=== PATIENT | female | born 1950 | race Asian ===

== ENCOUNTER → 2018-03-18 12:01 | Outpatient (CLI) | payer MEDICARE, SELFPAY ==
[2018-03-18 14:42] LABS: Anion Gap 10 (5-15); BUN 11 mg/dL (7-18); BUN/Creat Ratio 11.2 RATIO (10-20); Calcium,Total 9.3 mg/dL (8.5-10.1); Chloride 107 mmol/L (98-107); Cholesterol 171 mg/dL (200); Creatinine, Serum 0.98 mg/dL (0.55-1.02); EST Glomerular Filtration Rate 60 mL/min (>60); Est Glom Filt Rate - Afr Amer 73 mL/min (>60); Glucose 98 mg/dL (74-106); High Density Lipoprotein 30 mg/dL; Sodium Level 144 mmol/L (136-145); Triglycerides 225 mg/dL; Very Low Density Lipoprotein 45 mg/dL (5-40)
[2018-03-19 12:35] LABS: Cancer Antigen 125 52.9 U/mL (0.0-38.1)
== END ==
PROVIDERS: Family Provider Family Medicine; PCP Family Medicine; Visit Provider Family Medicine
DX: R97.1 Elevated cancer antigen 125 [CA 125] (principal); I10 Essential (primary) hypertension
CPT/HCPCS: 36415; 80048; 80061; 86304

== ENCOUNTER → 2018-04-19 12:10 | Outpatient (CLI) | payer MEDICARE, SELFPAY ==
--- NOTE | 2018-04-19 12:13 | CDU_ITS ---
Reason For Study: hyperlipidemia Rt. Velocities/BP Lt. Velocities/BP Prox CCA 67..4/17.0 cm/sec. Prox CCA 89.7/18.2 cm/sec. Mid CCA 101.0/22.3 cm/sec. Mid CCA 111.0/25.8 cm/sec. Dist CCA 97.3/19.3 cm/sec. Dist CCA 72.7/25.25 cm/sec. Prox ICA 104.0/24.6 cm/sec. Prox ICA 90.9/25.2 cm/sec. Mid ICA 116.0/30.5 cm/sec. Mid ICA 89.1/29.3 cm/sec. Dist ICA 74.5/25.2 cm/sec. Dist ICA 107.0/33.4 cm/sec. Rt. ICA/CCA = 116.0/101.0=1.15. Lt. ICA/CCA = 107.0/111.0=0.96. Prox ECA 90.9/13.5 cm/sec. Prox ECA 95.6/13.5 cm/sec. Rt. Vert. 66.0/21.2 cm/sec. Lt. Vert. 51.5/11.7 cm/sec. Right Extracranial There is homogeneous, smooth atherosclerotic plaque noted in the right common carotid artery. There is heterogeneous, irregular atherosclerotic plaque noted in the right internal carotid artery. There is homogeneous, smooth atherosclerotic plaque noted in the right external carotid artery. Antegrade flow is noted in the right vertebral artery. Left Extracranial There is heterogeneous, irregular atherosclerotic plaque noted in the left common carotid artery. There is homogeneous, smooth atherosclerotic plaque noted in the left internal carotid artery. The atherosclerotic plaque causes acoustic shadowing. There is intimal thickening but no significant atherosclerotic plaque noted in the left external carotid artery. Antegrade flow is noted in the left vertebral artery. There is heterogeneous, irregular atherosclerotic plaque noted in the left bulb. Interpretation Summary Irregular plague at the proximal right internal carotid with <50% stenosis Normal flow right external carotid Calcific plague with shadowing at the proximal left internal carotid with <50% stenosis. Normal flow left external carotid Patent and antegrade vertebrals bilaterally Ordering Physician: Conner Nolan Referring Physician: Conner Nolan Performed By: Manju Nj, DUKE, RVT
== END ==
PROVIDERS: Family Provider Family Medicine; PCP Family Medicine; Visit Provider Family Medicine
DX: E78.5 Hyperlipidemia, unspecified (principal)
CPT/HCPCS: 93880

== ENCOUNTER → 2018-06-17 11:21 | Outpatient (CLI) | payer MEDICARE, SELFPAY ==
[2018-06-17 14:09] LABS: Anion Gap 7 (5-15); BUN 12 mg/dL (7-18); BUN/Creat Ratio 11.8 RATIO (10-20); Calcium,Total 9.2 mg/dL (8.5-10.1); Chloride 108 mmol/L (98-107); Creatinine, Serum 1.02 mg/dL (0.55-1.02); EST Glomerular Filtration Rate 58 mL/min (>60); Est Glom Filt Rate - Afr Amer 70 mL/min (>60); Glucose 115 mg/dL (74-106); Sodium Level 143 mmol/L (136-145)
[2018-06-21 12:45] LABS: Cancer Antigen 125 60.5 U/mL (0.0-38.1)
== END ==
PROVIDERS: Family Provider Family Medicine; PCP Family Medicine; Visit Provider Family Medicine
DX: R97.1 Elevated cancer antigen 125 [CA 125] (principal); I10 Essential (primary) hypertension
CPT/HCPCS: 36415; 80048; 86304

== ENCOUNTER 2018-06-29 07:32 | Day surgery (SDC) | payer MEDICARE, SELFPAY ==
--- NOTE | 2018-06-29 | IMM_PTH ---
PATIENT: ADAM DUENAS LOC: EN U#:[id number] AGE/SX: 67/F ROOM: RE06/29/[address]: Dr. Mahendra Nogueira MD : 1950 BED: DIS: 06/29/2018 SPEC #: [id number] RECD: 06/30/18 10:27 STATUS: SON RESoraya #: [id number] LEN: 06/29/18 00:[address]: Mahendra Nogueira DEPT: IMMUNOHISTOCHEMISTRY RECD BY: Viki Abraham ENTERED: 06/30/18 10:27 SP TYPE: IMMUNO OTHR DR: Dr. Conner Nolan MD Tissues: Stomach, NOS Procedures: H Pylori (initial) PHYSICIAN & INSTITUTION [place] [address] SPECIMEN INFORMATION: Tissue Source: Antrum biopsy Clinical Info: Screening, GERD, esophagitis Specimen Number: [id number] CPT code: 04411 METHODOLOGY: Deparaffinized sections of prefer/formalin-fixed tissue or PAP/DQ stained slides are incubated with monoclonal/polyclonal antibodies/oligonucleotide probes. Localization is made via biotin free immunoperoxidase method. Appropriate controls are performed and reacted as expected. Results on target cell population are indicated in the following table: RESULTS: ANTIBODY / CLONE RESULT H Pylori (polyclonal) positive These tests were developed and their performance characteristics determined by [facility]. They may not have been cleared or approved by the U.S. Food and Drug Administration. The FDA has determined that such clearance or approval is not necessary. INTERPRETATION: Antrum, biopsy: Positive for numerous Helicobacter pylori organisms. SJ:rojas 06/30/18
[2018-06-29 08:31] VITALS: BP 143/62; PULSE 67; RESP 18; TEMP 36.7; O2SAT 100; BMI 29.1
[2018-06-29 08:51] LABS: Bedside Glucose 96 mg/dL (70-110)
--- NOTE | 2018-06-29 09:45 | EGD_PTH ---
PATIENT: ADAM DUENAS LOC: EN U#:[id number] AGE/SX: 67/F ROOM: RE06/29/[address]: Dr. Mahendra Nogueira MD : 1950 BED: DIS: 06/29/2018 SPEC #: [id number] RECD: 06/29/18 10:07 STATUS: SON CYNDI #: [id number] LEN: 06/29/18 09:[address]: Mahendra Nogueira DEPT: SURGICAL PATHOLOGY RECD BY: Vivek Callejas ENTERED: 06/29/18 12:17 SP TYPE: EGD BIOPSY OTHR DR: Dr. Conner Nolan MD Tissues: Gastric mucous membrane Procedures: Surgery Specimen Level IV HEADER OPERATION: Colonoscopy, EGD ([facility]) PRE-OP DIAGNOSIS: Screening for colon CA, gastroesophageal reflux disease, esophagitis TISSUE SUBMITTED: Antrum biopsy for H. pylori and path MICROSCOPIC DIAGNOSIS Antrum, biopsy: Chronic active gastritis. SJ:rojas 06/30/18 COMMENT The results of immunohistochemistry for Helicobacter pylori will be reported separately ([id number]). MICROSCOPIC DESCRIPTION Slides are reviewed. GROSS DESCRIPTION Received in fixative is one container labeled with the patient's name and designated antrum biopsy for H. pylori and path. The specimen consists of two irregular fragments of light fontenot soft tissue that in aggregate measure 1 x 0.2 x 0.1 cm. The specimen is totally submitted in one cassette. / SJ:rojas 06/29/18 TC:2 CPT: 15912
[2018-06-29 09:55] VITALS: BP 118/41; BP 143/62; PULSE 68; RESP 18; TEMP 36.9; O2SAT 100
[2018-06-29 10:00] VITALS: BP 119/49; BP 143/62; PULSE 65; RESP 16; O2SAT 100
[2018-06-29 10:00] LABS: Bedside Glucose 89 mg/dL (70-110)
--- NOTE | 2018-06-29 10:04 | OP.PCM_ITS ---
Problem List (1) GERD with esophagitis Status: Acute (2) Screen for colon cancer Status: Acute Report of Operation Date of Procedure: 06/29/18 Pre-Operative Diagnosis: 1. GERD. 2. Screening for colon cancer Post-Operative Diagnosis: 1. Gastric ulcers. 2. Hemorrhoids Surgery/Procedure Performed:: 1. EGD with biopsy. 2. Colonoscopy Specimen's removed: Antrum biopsy for H. pylori Description of Procedure: The major risks and benefits associated with the procedure were explained to the patient in detail. The patient verbalized understanding and agreement with the same. The patient was then placed in the left lateral decubitus position. IV sedation was started by anesthesia. The endoscope was then advanced under direct visualization over the tongue, into the esophagus , stomach and duodenum. It was slowly withdrawn and the mucosa was carefully evaluated. Duodenal mucosal abnormalities were not visualized. Retrograde views of the stomach did not show any hiatal hernia. The distal stomach did have multiple shallow based ulcers. None of these had active bleeding. A biopsy of the antrum was performed with cold forceps. The scope was then withdrawn through the GE junction and careful examination did not demonstrate any mucosal abnormalities. No evidence of Patel's esophagus was apparent. Careful examination of the remainder of the esophagus was normal. The scope was then withdrawn from the patient. The patient was then turned for the colonoscopy portion of the procedure. A digital rectal exam was performed. This examination was within normal limits. A well-lubricated colonoscope was then inserted into the rectum and advanced under direct visualization to the level of the cecum. The bowel prep was good. The cecum was identified by both visual and anatomic landmarks. A photograph was taken of the end of the cecum. The scope was then fully withdrawn while examining the color, texture, anatomy and integrity of the mucosa from the cecum to the anal canal. Over 6 minutes were taken to examine the colonic mucosa. The findings were consistent with normal colonic mucosa. Upon reaching the rectum the scope was retroflexed to examine the distal rectal vault. The patient did have internal hemorrhoids. The scope was then straightened and was completely retrieved upon exiting the anal canal and the procedure was terminated. The patient was then transferred to the recovery room in stable condition. Recommendations for follow up: 1. I will start the patient on PPI for her peptic ulcer disease. I recommended that she return to see me in 3 months for repeat EGD to ensure that these have healed. If they have not healed I will biopsy the ulcers themselves. 2. Colonoscopy was normal and she can repeat colonoscopy in 10 years.
[2018-06-29 10:05] VITALS: BP 121/58; BP 143/62; PULSE 62; RESP 16; O2SAT 100
[2018-06-29 10:10] VITALS: BP 121/40; BP 143/62; PULSE 63; RESP 16; TEMP 36.4; O2SAT 100
[2018-06-29 10:31] VITALS: BP 143/62
== END 2018-06-29 10:54 | disposition home or self-care (01) ==
LOC: EN 07:33 → AC 07:34
PROVIDERS: Family Provider Family Medicine; PCP Family Medicine; Visit Provider Surgery
PROC: 0DJD8ZZ Inspection of Lower Intestinal Tract, Via Natural or Artificial Opening Endoscopic (ICD-10-PCS; CPT 45378; principal; 2018-06-29 09:40)
DX: Z12.11 Encounter for screening for malignant neoplasm of colon (principal); K21.0 Gastro-esophageal reflux disease with esophagitis; K64.8 Other hemorrhoids; K27.9 Peptic ulcer, site unspecified, unspecified as acute or chronic, without hemorrhage or perforation; Z79.899 Other long term (current) drug therapy; E78.5 Hyperlipidemia, unspecified; E11.9 Type 2 diabetes mellitus without complications; Z85.43 Personal history of malignant neoplasm of ovary; Z87.891 Personal history of nicotine dependence
CPT/HCPCS: 43239; G0121; 82962; 88305; 88342; J7120

== ENCOUNTER → 2018-12-16 10:21 | Outpatient (CLI) | payer MEDICARE, SELFPAY ==
[2018-12-16 13:25] LABS: AST(SGOT) 23 U/L (15-37); Alanine Aminotransfer ALT/SGPT 21 U/L (13-56); Albumin, Serum 3.9 g/dL (3.2-5.0); Alkaline Phosphatase 121 U/L (45-117); Anion Gap 10 (5-15); BUN 13 mg/dL (7-18); BUN/Creat Ratio 13.2 RATIO (10-20); Bilirubin, Direct 0.18 mg/dL (0.00-0.30); Calcium,Total 9.2 mg/dL (8.5-10.1); Chloride 109 mmol/L (98-107); Cholesterol 172 mg/dL (200); Creatinine, Serum 0.99 mg/dL (0.55-1.02); EST Glomerular Filtration Rate 60 mL/min (>60); Est Glom Filt Rate - Afr Amer 72 mL/min (>60); Glucose 95 mg/dL (74-106); High Density Lipoprotein 33 mg/dL; Potassium 3.9 mmol/L (3.5-5.1); Protein, Total 7.9 g/dL (6.4-8.2); Sodium Level 145 mmol/L (136-145); Triglycerides 188 mg/dL; Very Low Density Lipoprotein 38 mg/dL (5-40)
[2018-12-17 08:18] LABS: Cancer Antigen 125 110.5 U/mL (0.0-38.1)
== END ==
PROVIDERS: Family Provider Family Medicine; PCP Family Medicine; Referring Provider Family Medicine; Visit Provider Family Medicine
DX: I10 Essential (primary) hypertension (principal); E78.5 Hyperlipidemia, unspecified; R97.1 Elevated cancer antigen 125 [CA 125]
CPT/HCPCS: 36415; 80048; 80061; 80076; 86304

== ENCOUNTER → 2018-12-21 14:28 | Outpatient (CLI) | payer MEDICARE, SELFPAY ==
--- NOTE | 2018-12-21 14:34 | CT_ITS ---
STUDY: CT ABDOMEN AND PELVIS WITH CONTRAST REASON FOR EXAM: Female, 68 years old. History of aortic aneurysm. RADIATION DOSAGE (If Supplied By Facility): CTDIvol = ( 16.45 ) mGy, DLP = ( 1056.10 ) mGycm TECHNIQUE: Transaxial images were obtained from the dome of the diaphragm to the symphysis pubis without oral contrast. Isovue 300 100ML IV was administered. Sagittal and coronal images were reconstructed. Individualized dose optimization techniques were used for this CT. COMPARISON: Comparison is made with prior study dated July 25, 2015. FINDINGS: The visualized lung bases are unremarkable. The visualized portions of the heart are within normal limits. There is decreased attenuation of the liver consistent with steatosis. Normal gallbladder and extrahepatic biliary system. Normal spleen. Normal pancreas. Normal bilateral adrenal glands. Normal right kidney. Normal left kidney. Normal visualized stomach. Normal small intestine. Normal colon. The appendix is visualized and appears normal. There is evidence of a fusiform infrarenal abdominal aortic aneurysm with a transverse dimension of 2.8 cm. This is unchanged. Atherosclerotic plaque formation of the abdominal aorta. Normal inferior vena cava. Normal retroperitoneum. Normal urinary bladder. There is absence of the uterus consistent with a prior hysterectomy. Evidence of prior ventral hernia repair with a mesh. There are degenerative changes of the visualized lumbar spine. Mild loss of height of the superior endplate of the L3 vertebrae. This is unchanged. Straightening of the normal lumbar lordosis. Spondylolysis with minimal anterior listhesis of L5 on S1. CT/Abdomen/Pelvis WITH Contrast IMPRESSION: Fatty infiltration of the liver. Stable abdominal aortic aneurysm. Electronically Signed: Torey Chu, at 10:32 EST , Service support ,
== END ==
PROVIDERS: Family Provider Family Medicine; PCP Family Medicine; Referring Provider Family Medicine; Visit Provider Family Medicine
DX: I71.9 Aortic aneurysm of unspecified site, without rupture (principal)
CPT/HCPCS: 74177; Q9967

== ENCOUNTER → 2019-06-13 | Outpatient (CLI) | payer MEDICARE, SELFPAY ==
[2019-06-15 09:53] LABS: Cancer Antigen 125 149.6 U/mL (0.0-38.1)
== END | disposition home or self-care (01) ==
LOC: MFPLAB 10:48
PROVIDERS: Family Provider Family Medicine; PCP Family Medicine; Visit Provider Family Medicine
DX: Z85.43 Personal history of malignant neoplasm of ovary (principal)
CPT/HCPCS: 36415; 86304

== ENCOUNTER → 2019-12-08 10:19 | Outpatient (CLI) | payer MEDICARE, SELFPAY ==
[2019-12-08 12:50] LABS: Anion Gap 5 (5-15); BUN 14 mg/dL (7-18); BUN/Creat Ratio 14.9 RATIO (10-20); Calcium,Total 9.5 mg/dL (8.5-10.1); Chloride 109 mmol/L (98-107); Cholesterol 216 mg/dL (200); Creatinine, Serum 0.94 mg/dL (0.55-1.02); EST Glomerular Filtration Rate 63 mL/min (>60); Est Glom Filt Rate - Afr Amer 76 mL/min (>60); Glucose 93 mg/dL (74-106); High Density Lipoprotein 34 mg/dL; Sodium Level 142 mmol/L (136-145); Triglycerides 148 mg/dL; Very Low Density Lipoprotein 30 mg/dL (5-40)
[2019-12-09 12:01] LABS: Cancer Antigen 125 170.1 U/mL (0.0-38.1)
== END ==
PROVIDERS: PCP Family Medicine; Referring Provider Family Medicine; Visit Provider Family Medicine
DX: E11.9 Type 2 diabetes mellitus without complications (principal); R97.1 Elevated cancer antigen 125 [CA 125]
CPT/HCPCS: 36415; 80048; 80061; 86304

== ENCOUNTER → 2020-06-07 10:12 | Outpatient (CLI) | payer MEDICARE, SELFPAY ==
[2020-06-07 12:59] LABS: Anion Gap 4 (5-15); BUN 9 mg/dL (7-18); BUN/Creat Ratio 9.1 RATIO (10-20); Calcium,Total 9.2 mg/dL (8.5-10.1); Chloride 110 mmol/L (98-107); Cholesterol 142 mg/dL (200); Creatinine, Serum 0.98 mg/dL (0.55-1.02); EST Glomerular Filtration Rate 60 mL/min (>60); Est Glom Filt Rate - Afr Amer 72 mL/min (>60); Glucose 98 mg/dL (74-106); High Density Lipoprotein 30 mg/dL; Sodium Level 143 mmol/L (136-145); Triglycerides 213 mg/dL; Very Low Density Lipoprotein 43 mg/dL (5-40)
[2020-06-07 13:10] LABS: Hemoglobin A1c 6.2 % (3.8-5.6)
== END ==
PROVIDERS: PCP Family Medicine; Referring Provider Family Medicine; Visit Provider Family Medicine
DX: E11.9 Type 2 diabetes mellitus without complications (principal); R97.1 Elevated cancer antigen 125 [CA 125]
CPT/HCPCS: 36415; 80048; 80061; 83036; 86304

== ENCOUNTER → 2020-12-10 09:54 | Outpatient (CLI) | payer MEDICARE, SELFPAY ==
[2020-12-10 13:18] LABS: Anion Gap 6 (5-15); BUN 10 mg/dL (7-18); Calcium,Total 9.3 mg/dL (8.5-10.1); Chloride 109 mmol/L (98-107); Cholesterol 152 mg/dL (200); EST Glomerular Filtration Rate 59 mL/min (>60); Est Glom Filt Rate - Afr Amer 71 mL/min (>60); Glucose 98 mg/dL (74-106); High Density Lipoprotein 34 mg/dL; Potassium 3.8 mmol/L (3.5-5.1); Sodium Level 142 mmol/L (136-145); Triglycerides 169 mg/dL; Very Low Density Lipoprotein 34 mg/dL (5-40)
== END ==
PROVIDERS: PCP Family Medicine; Referring Provider Family Medicine; Visit Provider Family Medicine
DX: E78.5 Hyperlipidemia, unspecified (principal); Z85.43 Personal history of malignant neoplasm of ovary
CPT/HCPCS: 36415; 80048; 80061; 86304

== ENCOUNTER → 2021-06-12 09:55 | Outpatient (CLI) | payer MEDICARE, SELFPAY ==
[2021-06-12 12:50] LABS: Anion Gap 4 (5-15); BUN 15 mg/dL (7-18); Calcium,Total 9.3 mg/dL (8.5-10.1); Chloride 110 mmol/L (98-107); Cholesterol 157 mg/dL (200); EST Glomerular Filtration Rate 58 mL/min (>60); Est Glom Filt Rate - Afr Amer 71 mL/min (>60); Glucose 108 mg/dL (74-106); High Density Lipoprotein 34 mg/dL; Potassium 3.9 mmol/L (3.5-5.1); Sodium Level 141 mmol/L (136-145); Triglycerides 209 mg/dL; Very Low Density Lipoprotein 42 mg/dL (5-40)
== END ==
PROVIDERS: PCP Family Medicine; Referring Provider Family Medicine; Visit Provider Family Medicine
DX: I10 Essential (primary) hypertension (principal); E78.5 Hyperlipidemia, unspecified; R97.1 Elevated cancer antigen 125 [CA 125]
CPT/HCPCS: 36415; 80048; 80061; 86304

== ENCOUNTER 2021-12-11 10:22 | Outpatient (CLI) | payer MEDICARE, SELFPAY ==
[2021-12-11 12:29] LABS: Anion Gap 4 (5-15); BUN 14 mg/dL (7-18); BUN/Creat Ratio 14.5 RATIO (10-20); Calcium,Total 9.1 mg/dL (8.5-10.1); Chloride 111 mmol/L (98-107); Cholesterol 183 mg/dL (200); Creatinine, Serum 0.96 mg/dL (0.55-1.02); EST Glomerular Filtration Rate 61 mL/min (>60); Est Glom Filt Rate - Afr Amer 73 mL/min (>60); Glucose 101 mg/dL (74-106); High Density Lipoprotein 31 mg/dL; Potassium 3.8 mmol/L (3.5-5.1); Sodium Level 143 mmol/L (136-145); Triglycerides 269 mg/dL; Very Low Density Lipoprotein 54 mg/dL (5-40)
== END 2021-12-11 23:59 | disposition home or self-care (01) ==
LOC: MFPLAB 10:26
PROVIDERS: PCP Family Medicine; Referring Provider Family Medicine; Visit Provider Family Medicine
DX: E11.9 Type 2 diabetes mellitus without complications (principal); R97.1 Elevated cancer antigen 125 [CA 125]
CPT/HCPCS: 36415; 80048; 80061; 86304

== ENCOUNTER → 2022-06-11 | Outpatient (CLI) | payer MEDICARE, SELFPAY ==
[2022-06-11 13:04] LABS: Anion Gap 7 (5-15); BUN 16 mg/dL (7-18); BUN/Creat Ratio 12.7 RATIO (10-20); Calcium,Total 9.2 mg/dL (8.5-10.1); Chloride 109 mmol/L (98-107); Cholesterol 170 mg/dL (200); Creatinine, Serum 1.26 mg/dL (0.55-1.02); EST Glomerular Filtration Rate 45 mL/min (>60); Est Glom Filt Rate - Afr Amer 54 mL/min (>60); Glucose 94 mg/dL (74-106); High Density Lipoprotein 31 mg/dL; Potassium 3.8 mmol/L (3.5-5.1); Sodium Level 143 mmol/L (136-145); Triglycerides 227 mg/dL; Very Low Density Lipoprotein 45 mg/dL (5-40)
== END | disposition home or self-care (01) ==
LOC: MFPLAB 11:09
PROVIDERS: PCP Family Medicine; Referring Provider Family Medicine; Visit Provider Family Medicine
DX: R97.1 Elevated cancer antigen 125 [CA 125] (principal); E11.9 Type 2 diabetes mellitus without complications
CPT/HCPCS: 36415; 80048; 80061; 86304

== ENCOUNTER → 2022-11-26 | Outpatient (CLI) | payer MEDICARE, SELFPAY ==
--- NOTE | 2022-11-26 11:06 | RAD_ITS ---
EXAM: XR SACRUM AND COCCYX, 2 OR MORE VIEWS CLINICAL INDICATION: FALL WITH INJURY TECHNIQUE: Frontal and lateral views of the sacrum and coccyx. This report was created using [employer] report generation technology. COMPARISON: None. FINDINGS: SACRUM/COCCYX: Unremarkable. No displaced fracture. No destructive or sclerotic lesions. Note that overlapping bowel shadows may however obscure fine detail in the frontal view. Sacroiliac joints are unremarkable. SOFT TISSUES: Unremarkable. No soft tissue swelling or gas. RAD/Sacrum-Coccyx min 2 Views IMPRESSION: No acute fracture of the sacrum and coccyx. Electronically Signed: Sami Avila MD at 12:32 EST ,
[2022-11-26 12:58] LABS: Anion Gap 6 (5-15); BUN 20 mg/dL (7-18); BUN/Creat Ratio 13.5 RATIO (10-20); Calcium,Total 9.7 mg/dL (8.5-10.1); Chloride 112 mmol/L (98-107); Cholesterol 181 mg/dL (200); Creatinine, Serum 1.48 mg/dL (0.55-1.02); EST Glomerular Filtration Rate 37 mL/min (>60); Est Glom Filt Rate - Afr Amer 45 mL/min (>60); Glucose 78 mg/dL (74-106); High Density Lipoprotein 35 mg/dL; Potassium 3.5 mmol/L (3.5-5.1); Sodium Level 145 mmol/L (136-145); Triglycerides 173 mg/dL; Very Low Density Lipoprotein 35 mg/dL (5-40)
== END | disposition home or self-care (01) ==
PROVIDERS: PCP Family Medicine; Referring Provider Family Medicine; Visit Provider Family Medicine
DX: I10 Essential (primary) hypertension (principal); R97.1 Elevated cancer antigen 125 [CA 125]; T14.90XA Injury, unspecified, initial encounter; W19.XXXA Unspecified fall, initial encounter
CPT/HCPCS: 36415; 72220; 80048; 80061; 86304

== ENCOUNTER → 2023-01-21 | Outpatient (CLI) | payer MEDICARE, SELFPAY ==
[2023-01-21 18:09] LABS: Anion Gap 8 (5-15); BUN 24 mg/dL (7-18); BUN/Creat Ratio 11.7 RATIO (10-20); Calcium,Total 9.4 mg/dL (8.5-10.1); Chloride 96 mmol/L (98-107); Creatinine, Serum 2.05 mg/dL (0.55-1.02); EST Glomerular Filtration Rate 25 mL/min (>60); Est Glom Filt Rate - Afr Amer 31 mL/min (>60); Glucose 124 mg/dL (74-106); Potassium 3.2 mmol/L (3.5-5.1); Sodium Level 134 mmol/L (136-145)
== END | disposition home or self-care (01) ==
LOC: MFPLAB 14:18
PROVIDERS: PCP Family Medicine; Referring Provider Family Medicine; Visit Provider Family Medicine
DX: R60.9 Edema, unspecified (principal)
CPT/HCPCS: 36415; 80048

== ENCOUNTER → 2023-01-28 | Outpatient (CLI) | payer MEDICARE, SELFPAY ==
--- NOTE | 2023-01-28 11:48 | RAD_ITS ---
STUDY: X-RAY - ABDOMEN/PELVIS REASON FOR EXAM: Female, 72 years old. Flank pain TECHNIQUE: Two AP supine views of the abdomen and pelvis. COMPARISON: None. FINDINGS: Normal visualized lung bases. Satisfactory positioning of a left-sided JJ stent. No calcifications are noted overlying the left renal shadow or along the course of the left ureter. However, one could be obscured by overlying bowel gas and stool There is an unremarkable bowel gas pattern. There is no demonstrated free abdominal air. The visualized liver, spleen and kidneys are grossly normal in size and morphology. Normal soft tissue structures. There are diffuse degenerative changes of the visualized lumbar spine, and pelvis. RAD/Abdomen Single View IMPRESSION: No suspicious findings, satisfactory positioning of a left-sided JJ stent Electronically Signed: Raymond Daniel MD at 12:43 EDT ,
== END | disposition home or self-care (01) ==
LOC: MTRAD 11:45
PROVIDERS: PCP Family Medicine; Referring Provider Urology; Visit Provider Urology
DX: N13.2 Hydronephrosis with renal and ureteral calculous obstruction (principal)
CPT/HCPCS: 74018

== ENCOUNTER → 2023-03-02 | Outpatient (CLI) | payer MEDICARE, SELFPAY ==
[2023-03-02 18:15] LABS: Anion Gap 8 (5-15); BUN 40 mg/dL (7-18); BUN/Creat Ratio 11.7 RATIO (10-20); Calcium,Total 9.6 mg/dL (8.5-10.1); Chloride 99 mmol/L (98-107); Creatinine, Serum 3.43 mg/dL (0.55-1.02); EST Glomerular Filtration Rate 14 mL/min (>60); Est Glom Filt Rate - Afr Amer 17 mL/min (>60); Glucose 143 mg/dL (74-106); Potassium 4.3 mmol/L (3.5-5.1); Sodium Level 131 mmol/L (136-145)
== END | disposition home or self-care (01) ==
LOC: MFPLAB 14:36
PROVIDERS: PCP Family Medicine; Visit Provider Family Medicine
DX: I10 Essential (primary) hypertension (principal)
CPT/HCPCS: 36415; 80048

== ENCOUNTER 2023-04-02 05:40 | Day surgery (SDC) | payer MEDICARE, SELFPAY ==
[2023-04-02] VITALS (7 sets, daily range): BP systolic 137–176; BP diastolic 61–86; PULSE 70–87; RESP 10–18; TEMP 36.3–36.6; O2SAT 97–100
[2023-04-02] MEDS: Lactated Ringers 1,000 ML 15 ML IV (06:26)
[2023-04-02 06:52] LABS: Bedside Glucose 72 mg/dL (74-106)
[2023-04-02] MEDS: Cefazolin 2 GM in 0.9% Normal Saline 100 ML IV (07:40)
--- NOTE | 2023-04-02 08:13 | PCM.OPRPT ---
Report of Operation Date of Procedure: 04/02/23 Pre-Operative Diagnosis: Left ureteral obstruction Post-Operative Diagnosis: Same Surgery/Procedure Performed:: Cystoscopy, left ureteral stent change Surgeon: Sharon Potter Type of Anesthesia: General Description of Procedure: The patient is a 72-year-old female with ovarian cancer and external compression with obstruction of the left ureter. She presents for left ureteral stent change. The stent was inserted approximately 2 to 3 months ago at an outlying institution. She has had no issues with the stent aside from some hematuria when it was initially inserted. Informed consent was obtained. She was taken to the operating room and placed on the operating room table. Anesthesia monitored the head, neck, airway, IV access and vital signs throughout the case. Once anesthesia was appropriately administered, the patient was placed into dorsolithotomy position and was prepped and draped in usual sterile fashion. The cystoscope was inserted through the urethra under direct visualization into the urinary bladder. There were no bladder mucosal lesions identified. The left ureteral indwelling stent was easily identified. I attempted to place a wire alongside the stent and this was unsuccessful. Graspers were used to pull the indwelling stent to the urethral meatus at which time it was intubated with a 0.035 Glidewire which passed easily into the renal pelvis. The stent was then removed. Using the cystoscope, the same size stent was inserted over the wire. This was a 8.5 x 24 cm JJ stent. The stent had good curling in the renal pelvis as well as the urinary bladder and there is no obstruction on insertion. The patient's bladder was then emptied and the case was terminated. She was awakened and taken to the recovery room in good condition. There were no complications during this procedure. Grafts/Implants Used: 8.5 x 24 cm JJ stent Complications None Admit VTE Documentation VTE Present on Admission: Yes VTE Mechan Device Prophylaxis: SCD's VTE Pharm Prophylaxis ordered?: Yes
--- NOTE | 2023-04-02 08:21 | DCINST_ITS ---
Discharge Instructions Diet Discharge Diet: No restrictions Activity Discharge Activity: Return to Normal Activity Dressing / Incision Call your doctor if you observe: Fever of 101 or Higher, Inability to urinate and Inability to have a bowel movement Follow Up Care Please Follow Up With: Sharon Potter MD When: call office for appt Test Results: Test results from this visit will be discussed in further detail at your follow- up appointment, if applicable. Discharge Plan Admission Attending Provider: Sharon Potter Primary Care Provider: Conner Nolan Discharge Orders/Prescriptions Prescriptions: New cephalexin [cephalexin] 500 mg capsule 500 mg PO Q12 3 Days Qty: 6 0RF Continued losartan 50 mg tablet 25 mg PO DAILY Label Comments: TAKE 1 TABLET BY MOUTH ONCE DAILY furosemide 20 mg tablet 20 mg PO QHS Label Comments: TAKE 1 TABLET BY MOUTH ONCE DAILY Eliquis 5 mg tablet 5 mg PO DAILY Label Comments: TAKE 1 TABLET BY MOUTH TWICE DAILY Referrals / Follow Up: Conner Nolan MD [Primary Care Provider] - Disposition Disposition (needs filled in before D/C Order can be placed): Home, Self Care
[2023-04-02 08:48] LABS: Bedside Glucose 90 mg/dL (74-106)
== END 2023-04-02 10:12 | disposition home or self-care (01) ==
LOC: SDC 05:41 → AC 05:42
PROVIDERS: PCP Family Medicine; Referring Provider Urology; Visit Provider Urology
PROC: 0TJ98ZZ Inspection of Ureter, Via Natural or Artificial Opening Endoscopic (ICD-10-PCS; CPT 52352; principal; 2023-04-02 07:20)
DX: N13.1 Hydronephrosis with ureteral stricture, not elsewhere classified (principal); C56.9 Malignant neoplasm of unspecified ovary; E11.9 Type 2 diabetes mellitus without complications; I10 Essential (primary) hypertension; E78.00 Pure hypercholesterolemia, unspecified; Z79.01 Long term (current) use of anticoagulants; Z79.899 Other long term (current) drug therapy; Z96.0 Presence of urogenital implants
CPT/HCPCS: 52332; 00910; 76000; 82962; J7120; C2617; J2405

== ENCOUNTER 2023-04-06 16:51 | Inpatient (IN) | payer MEDICARE, SELFPAY ==
[2023-04-06] VITALS (8 sets, daily range): BP systolic 153–200; BP diastolic 50–74; PULSE 74–105; RESP 16–24; TEMP 36.4–36.6; O2SAT 97–100; BMI 30.7; BMI 30.6
--- NOTE | 2023-04-06 17:15 | US_ITS ---
EXAM: US DUPLEX BILATERAL LOWER EXTREMITIES VEINS CLINICAL INDICATION: -- SWELLING TECHNIQUE: Real-time duplex ultrasound scan of the bilateral lower extremity veins integrating B-mode two-dimensional vascular structure, Doppler spectral analysis, color flow Doppler imaging and compression. COMPARISON: No relevant prior studies available. FINDINGS: RIGHT DEEP VEINS: Unremarkable. No DVT in the right common femoral, femoral, proximal deep femoral or popliteal veins. The veins demonstrate normal color flow, are normally compressible, with normal phasic flow and/or augmentation response. RIGHT SUPERFICIAL VEINS: Unremarkable. No thrombus in the visualized right great saphenous vein. LEFT DEEP VEINS: Unremarkable. No DVT in the left common femoral, femoral, proximal deep femoral or popliteal veins. The veins demonstrate normal color flow, are normally compressible, with normal phasic flow and/or augmentation response. LEFT SUPERFICIAL VEINS: Unremarkable. No thrombus in the visualized left great saphenous vein. SOFT TISSUES: No acute findings. No popliteal cyst. US/Venous Duplex Imag/Evaristo Extrem IMPRESSION: Normal bilateral lower extremity duplex venous ultrasound. Electronically Signed: Frankie Sierra MD at 19:50 EDT ,
--- NOTE | 2023-04-06 17:23 | EDS_ITS ---
HPI History of Present Illness Chief Complaint: Chest Pain Detail of Chief Complaint: Headache, nausea, vomiting, epigastric pain Informant: patient Onset/Context/Timing Onset: Days (4 days) Current Severity: Mild Maximum Severity: Moderate Narrative Narrative: Patient presents secondary to headache, nausea, vomiting, and epigastric/lower chest pain. Symptoms been ongoing for the past 3 or 4 days. Patient did get a renal stent placed on , the day before onset of symptoms. She does have a history of DVT and PE and her Eliquis is currently on hold given her surgery. She states she has been able to take her medications. 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 Diabetes Former smoker GERD (gastroesophageal reflux disease) Grief Hemorrhoid History of edema History of ovarian cancer History of pain when walking History of renal disease HTN (hypertension) Hypercholesterolemia Hyperlipidemia Loose, teeth Measles Neoplasm Ovarian cancer Pruritus Pulmonary embolism Syncope Wears glasses Home Medications apixaban 5 mg tablet (Eliquis) 5 mg PO DAILY 03/26/23 [History Last Taken 03/30/23] furosemide 20 mg tablet 20 mg PO QHS 03/26/23 [History Last Taken Unknown] losartan 50 mg tablet 25 mg PO DAILY 03/26/23 [History Last Taken 04/02/23] cephalexin 500 mg capsule 500 mg PO Q12 post-operative 3 days #6 CAPSULES 04/02/23 [Rx Last Taken Unknown] Allergy/AdvReac Type Severity Reaction Status Date / Time No Known Allergies Allergy Verified 04/06/23 16:52 Family History Mother CVA (cerebral vascular accident) Brother Diabetes Surgical History History of total hysterectomy with bilateral salpingo-oophorectomy (BSO) Social History Smoking Status: Former smoker alcohol intake: never substance use type: does not use ROS ROS ED Constitutional Constitutional ED: Denies chills or fever(s) Eyes Eyes: Denies change in vision or discharge from eye(s) ENT ENT ED: Denies discharge from eye(s), rhinorrhea or sore throat Cardiovascular Cardiovascular: Reports chest pain; Denies palpitations Respiratory/Chest Respiratory/Chest: Denies cough or dyspnea Gastrointestinal Gastrointestinal: Reports abdominal pain, nausea and vomiting; Denies diarrhea Genitourinary Genitourinary ED: Denies difficulty urinating or dysuria Musculoskeletal Musculoskeletal: Denies back pain or extremity pain Integumentary Denies Abrasions or rash Neurologic Neurologic: Reports headache(s); Denies weakness Psychiatric Psychiatric: Denies anxiety or depression Allergic/Immunologic Allergic/Immunologic ED: Denies lip swelling or urticaria EXAM Physical Exam Const Vital Signs: 04/06/23 16:52 04/06/23 17:41 04/06/23 17:46 Temperature 97.8 F Temperature Source Temporal Pulse Rate 84 74 80 Respiratory Rate 16 Blood Pressure 200/74 H 200/70 H 185/73 H Blood Pressure Mean 116 113 110 Pulse Ox 99 Oxygen Delivery Method Room Air 04/06/23 18:00 04/06/23 19:00 Temperature Temperature Source Pulse Rate Respiratory Rate 18 20 H Blood Pressure Blood Pressure Mean Pulse Ox Oxygen Delivery Method Positive well nourished and well developed General Appearance ED: well developed HEENT Reports moist mucous membranes Eyes PERRL and EOMs intact bilaterally Neck no lymphadenopathy Chest Wall inspection of chest normal and palpation of chest normal Resp normal respiratory effort and clear to auscultation bilaterally Cardio regular rate and regular rhythm GI GI Narrative: Abdomen soft with mild epigastric tenderness to palpation. No guarding or rebound. Hypoactive but present bowel sounds are noted. Extremity Extremity Narrative: Patient with 2-3+ bilateral lower extremity edema, symmetric. Patient states this is her baseline. 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 EKG obtained to evaluate for cardiac arrhythmia/ischemia. Labwork obtained to evaluate for leukocytosis, anemia, and electrolyte derangement. Urinalysis obtained to evaluate for infection/hematuria. Patient given a dose of hydralazine for hypertension and Zofran for nausea. Lab Data Attestation: I reviewed the patient's lab results. Labs: Laboratory Results - last 24 hr 04/06/23 04/06/23 04/06/23 17:47 17:47 18:27 WBC 8.0 RBC 3.63 L Hgb 10.2 L Hct 31.1 L MCV 85.7 MCH 28.1 MCHC 32.8 RDW Std Deviation 41.4 RDW Coeff of Sol 13.2 Plt Count 329 MPV 9.7 Immature Gran % (Auto) 0.400 Neut % (Auto) 86.5 H Lymph % (Auto) 8.9 L [place] % (Auto) 3.9 Eos % (Auto) 0.0 Baso % (Auto) 0.3 Absolute Neuts (auto) 6.9 Absolute Lymphs (auto) 0.71 L Nucleated RBC % 0 Sodium 126 L Potassium 4.9 Chloride 94 L Carbon Dioxide 14.0 L Anion Gap 18 H BUN 92 H Creatinine 12.30 H* Estim Creat Clear Calc 3.47 Est GFR (MDRD) Af Amer 4 L Est GFR (MDRD) Non-Af 3 L BUN/Creatinine Ratio 7.5 L Glucose 75 Calcium 9.4 Total Bilirubin 0.60 Direct Bilirubin 0.13 AST 17 ALT < 6 L Alkaline Phosphatase 95 Troponin I High Sens 21 Total Protein 8.2 Albumin 3.1 L Globulin 5.1 H Lipase 65 Urine Color Yellow Urine Clarity Sl. Cloudy Urine pH 5.0 Ur Specific [place] 1.010 Urine Protein 100 H Urine Glucose (UA) Normal Urine Ketones 5 H Urine Occult Blood 250 H Urine Nitrite Negative Urine Bilirubin Negative Urine Urobilinogen Normal Ur Leukocyte Esterase 500 H Urine RBC 5-10 SEEN Urine WBC 10-25 SEEN Ur Squamous Epith Cells 5-10 SEEN Amorphous Sediment 1+ URATE Urine Bacteria RARE Urine Mucus 0 SEEN Radiography Diagnostic Testing: Clinical Impression(s) from Imaging Studies Venous Duplex 04/06/23 17:15 IMPRESSION: Normal bilateral lower extremity duplex venous ultrasound. Electronically Signed: Frankie Sierra MD at 19:50 EDT , Chest X-Ray 04/06/23 17:52 IMPRESSION: No radiographic evidence of acute cardiopulmonary disease. Electronically Signed: Frankie Sierra MD at 18:05 EDT , Abdomen/Pelvis CT 04/06/23 19:15 IMPRESSION: 1. Bilateral hydronephrosis and proximal hydroureter. Left ureteral stent is in good position. No obvious stones are identified. 2. Soft tissue in the retroperitoneum which may represent adenopathy possibly creating extrinsic compression on the ureters. The lack of IV contrast decreases sensitivity for detection of pathology. 3. Sclerotic area in the anterior aspect of L4 possibly representing early metastatic disease. Further evaluation with MRI may be beneficial. Electronically Signed: Frankie Sierra MD at 20:14 EDT , EKG Initial EKG: Attestation: I personally reviewed and interpreted this EKG as follows: Interpretation: Sinus Rhythm (Sinus 81 with no acute ischemia) Treatment and Re-Evaluation :: CBC reveals a normal white count at 8.0 with a hemoglobin of 10.2. Chemistry studies significant for a sodium of 126 and a chloride of 94. Anion gap is 18. BUN is 92 and creatinine is 12.3. LFTs are unremarkable and lipase is normal. Troponin is normal at 21. Urinalysis reveals rare bacteria. 10-25 white cells are noted with negative nitrites. This is likely secondary to her recent stent placement. Urine be sent for culture. Given her significant elevation in creatinine CT flank was obtained to ensure adequate position of her recently placed stent. Stent is in good position, however bilateral hydronephrosis and proximal hydroureter is noted. I spoke with Dr. Potter. It is reportedly felt that the hydronephrosis and hydroureter are secondary to her untreated ovarian cancer. She believes the patient is already enrolled in hospice. She states the next step in treatment would be nephrostomy tubes if the patient wants this performed. When I went back to speak with the patient she states that she is not in fact in hospice. She states someone came and talked with her about it but she does not want to sign up for that at this point. She is interested in admission for nephrostomy tubes. I will update Dr. Potter and speak with hospitalist. Discharge Plan Triage Chief Complaint: Chest Pain ED Provider: Kusum Matthews Dx/Rx/DC Orders Clinical Impression: Renal failure, Ovarian cancer Prescriptions: No Action losartan 50 mg tablet 25 mg PO DAILY Label Comments: TAKE 1 TABLET BY MOUTH ONCE DAILY furosemide 20 mg tablet 20 mg PO QHS Label Comments: TAKE 1 TABLET BY MOUTH ONCE DAILY Eliquis 5 mg tablet 5 mg PO DAILY Label Comments: TAKE 1 TABLET BY MOUTH TWICE DAILY cephalexin [cephalexin] 500 mg capsule 500 mg PO Q12 3 Days Qty: 6 0RF Primary Care Provider: Conner Nolan Referrals: Conner Nolan MD [Primary Care Provider] - Disposition Disposition: Acute Care Hospital [facility]
[2023-04-06] MEDS: Ondansetron 4 MG/2 ML Vial IV (17:40)
[2023-04-06] MEDS: hydrALAZINE 20 MG/ML Vial 10 MG IV ×2 (17:40→21:30)
--- NOTE | 2023-04-06 17:52 | RAD_ITS ---
EXAM: XR CHEST, 1 VIEW CLINICAL INDICATION: sob TECHNIQUE: Frontal view of the chest. COMPARISON: No relevant prior studies available. FINDINGS: LUNGS AND PLEURAL SPACES: Unremarkable. No consolidation or edema. No pneumothorax. No effusion. HEART: Unremarkable. Cardiac silhouette not enlarged. MEDIASTINUM: Central airways and mediastinal contour are unremarkable. BONES/JOINTS: Unremarkable. SOFT TISSUES: Unremarkable. RAD/Chest 1 View (Portable) IMPRESSION: No radiographic evidence of acute cardiopulmonary disease. Electronically Signed: Frankie Sierra MD at 18:05 EDT ,
[2023-04-06 18:07] LABS: Absolute Lymphocyte Count 0.71 X10^3/uL (0.83-4.51); Absolute Neutrophil Count 6.9 X10^3/uL (2.0-7.7); Basophil# 0.02 X10^3/uL; Basophil% 0.3 % (0-1); Hematocrit 31.1 % (37-47); Hemoglobin 10.2 g/dL (12.0-15.0); Lymphocyte # 0.71 X10^3/ul (0.83-4.51); Lymphocyte % 8.9 % (19-41); Mean Corp Hgb Conc 32.8 g/dL (32-36); Mean Corpuscular Hgb 28.1 pg (27.0-32.0); Mean Corpuscular Volume 85.7 fL (81-99); Mean Platelet Vol. 9.7 fl (6.2-12.0); Monocyte# 0.31 X10^3/uL; Monocyte% 3.9 % (0-10); NRBC Flagged by Analyzer 0 % (0-5); Neutrophil % 86.5 % (47-70); Platelet Count 329 K/mm3 (150-450); RBC Distribution Width CV 13.2 % (11.6-14.6); RBC Distribution Width SD 41.4 fl (35.1-43.9); Red Blood Count 3.63 M/mm3 (4.2-5.4)
[2023-04-06 18:34] LABS: AST(SGOT) 17 U/L (15-37); Alanine Aminotransfer ALT/SGPT < 6 U/L (13-56); Albumin, Serum 3.1 g/dL (3.2-5.0); Alkaline Phosphatase 95 U/L (45-117); Anion Gap 18 (5-15); BUN 92 mg/dL (7-18); BUN/Creat Ratio 7.5 RATIO (10-20); Bilirubin, Direct 0.13 mg/dL (0.00-0.30); Calcium,Total 9.4 mg/dL (8.5-10.1); Chloride 94 mmol/L (98-107); EST Glomerular Filtration Rate 3 mL/min (>60); Est Glom Filt Rate - Afr Amer 4 mL/min (>60); Estimated Creatinine Clearance 3.47 ml/min; Globulin 5.1 g/dL (2.2-4.2); Glucose 75 mg/dL (74-106); Lipase 65 U/L (13-75); Potassium 4.9 mmol/L (3.5-5.1); Protein, Total 8.2 g/dL (6.4-8.2); Sodium Level 126 mmol/L (136-145); Troponin-I HS 21 pg/mL (3.0-54.0)
[2023-04-06 18:36] LABS: Mucous, Urine 0 SEEN /hpf (<or=2+)
[2023-04-06 18:39] LABS: Color, Urine Yellow (Yellow); Glucose, Dipstick Normal (Normal); Ketone-Dipstick 5 mg/dl (Negative); Leukocyte Esterase-Dipstick 500 /ul (Negative); Nitrite-Dipstick Negative (Negative); Occult Blood-Urine 250 /ul (Negative); Protein-Dipstick 100 mg/dl (Negative); Urine Bilirubin Dipstick Negative (Negative); Urine Clarity Sl. Cloudy (Clear); Urine Urobilinogen Normal (Normal)
[2023-04-06 18:46] LABS: Amorphous Sediment 1+ URATE; Bacteria RARE /hpf (None Seen); Red Blood Cells-Urine 5-10 SEEN /hpf (0-5); Squamous Epithelial Cells - UA 5-10 SEEN /hpf (5-10); White Blood Cells 10-25 SEEN /hpf (0-5)
--- NOTE | 2023-04-06 19:15 | CT_ITS ---
EXAM: CT ABDOMEN AND PELVIS WITHOUT INTRAVENOUS CONTRAST CLINICAL INDICATION: renal failure, recent stent placement TECHNIQUE: Helically acquired images were obtained of the abdomen and pelvis without intravenous contrast. This CT exam was performed using one or more of the following dose reduction techniques: automated exposure control, adjustment of the mA and/or kV according to patient size, and/or use of iterative reconstruction technique. COMPARISON: 12/21/2018 FINDINGS: LOWER THORAX: There is a small left-sided pleural effusion. No cardiomegaly. ABDOMEN: LIVER: Unremarkable. Homogeneous. GALLBLADDER AND BILE DUCTS: Unremarkable. No calcified gallstones. No gallbladder distention or wall edema. No intra- or extrahepatic biliary ductal dilation. PANCREAS: Unremarkable. No focal cystic mass. SPLEEN: Unremarkable. Normal size without focal cystic or solid mass. ADRENALS: Unremarkable. No nodules. KIDNEYS AND URETERS: There is bilateral hydronephrosis. There is a left ureteral stent in place. There is soft tissue present in the retroperitoneum may represent adenopathy. There is a density to the left of aorta at the level of the proximal left stent that measures 3.4 x 2.3 cm. There is proximal bilateral hydroureter. No stones are identified. Normal renal size and position. STOMACH AND BOWEL: Unremarkable. No stomach or bowel distention. No focal inflammatory change. PELVIS: APPENDIX: No evidence of acute appendicitis. BLADDER: Unremarkable. REPRODUCTIVE: Unremarkable as visualized. No mass. ABDOMEN and PELVIS: INTRAPERITONEAL SPACE: Unremarkable. No ascites or other fluid collection. No free air. BONES/JOINTS: There is sclerosis seen in the anterior aspect of the L4 vertebral body which was not present on the patient. The possibility of early metastatic disease cannot be excluded. SOFT TISSUES: Unremarkable. No discrete abdominal or pelvic wall hernia. VASCULATURE: Unremarkable. Abdominal aorta is non-dilated. LYMPH NODES: See above. CT/Abdomen/Pelvis without Cont IMPRESSION: 1. Bilateral hydronephrosis and proximal hydroureter. Left ureteral stent is in good position. No obvious stones are identified. 2. Soft tissue in the retroperitoneum which may represent adenopathy possibly creating extrinsic compression on the ureters. The lack of IV contrast decreases sensitivity for detection of pathology. 3. Sclerotic area in the anterior aspect of L4 possibly representing early metastatic disease. Further evaluation with MRI may be beneficial. Electronically Signed: Frankie Sierra MD at 20:14 EDT ,
--- NOTE | 2023-04-06 21:07 | HP.PCM.HOS_ITS ---
HPI - General General Date of Admission: 04/06/23 Date of Service: 04/06/23 Chief Complaint: Epigastric pain HPI Narrative Patient is 72-year-old female with a significant history pulmonary embolism and DVT who was on Eliquis until recent left ureteral stent placement; ovarian cancer with metastasis status post hysterectomy; and hypertension who presents emergency department with a 2-day history of excruciating epigastric pain that radiated to her entire abdomen. A significant symptoms is nausea and vomiting. She reports 2 episodes of vomiting with streaks of blood. She describes her epigastric pain as burning. Lying down makes the pain worse and moving around helps the pain improve. Also she complains of baseline lower back pain. Of note 4-day before presentation she had bilateral hydronephrosis and had left ureteral stent placed. Because of her procedure and Eliquis has been on hold. On this presentation abdomen pelvis CT again showed bilateral hydronephrosis and with left ureteral stent in good position. Emergency dependably discussed the case with Dr. Potter will place stent and the plan is a consideration for nephrostomy tube. 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 Diabetes Former smoker GERD (gastroesophageal reflux disease) Grief Hemorrhoid History of edema History of ovarian cancer History of pain when walking History of renal disease HTN (hypertension) Hypercholesterolemia Hyperlipidemia Loose, teeth Measles Neoplasm Ovarian cancer Pruritus Pulmonary embolism Syncope Wears glasses Home Medications apixaban 5 mg tablet (Eliquis) 5 mg PO DAILY 03/26/23 [History Last Taken 03/30/23] furosemide 20 mg tablet 20 mg PO QHS diuretic 03/26/23 [History Last Taken Unknown] losartan 50 mg tablet 25 mg PO DAILY HTN 03/26/23 [History Last Taken 04/02/23] cephalexin 500 mg capsule 500 mg PO Q12 post-operative 3 days #6 CAPSULES 04/02/23 [Rx Last Taken Unknown] Allergy/AdvReac Type Severity Reaction Status Date / Time No Known Allergies Allergy Verified 04/06/23 16:52 Family History Mother CVA (cerebral vascular accident) Brother Diabetes Surgical History History of total hysterectomy with bilateral salpingo-oophorectomy (BSO) Social History Smoking Status: Former smoker alcohol intake: never substance use type: does not use ROS ROS Narrative Pertinent positives and pertinent negatives as noted in HPI. All other systems were reviewed and are negative Vital Signs Vital Signs Vital Signs: 04/06/23 16:52 04/06/23 17:41 04/06/23 17:46 Temperature 97.8 F Temperature Source Temporal Pulse Rate 84 74 80 Respiratory Rate 16 Blood Pressure 200/74 H 200/70 H 185/73 H Blood Pressure Mean 116 113 110 Pulse Ox 99 Oxygen Delivery Method Room Air 04/06/23 18:00 04/06/23 19:00 Temperature Temperature Source Pulse Rate Respiratory Rate 18 20 H Blood Pressure Blood Pressure Mean Pulse Ox Oxygen Delivery Method Weight Weight: 78.653 kg Body Mass Index (BMI) 30.7 Physical Exam Narrative Physical exam: General: Well-nourished, well-developed. Head: Normocephalic, atraumatic, no tenderness Eyes: Vision is grossly intact. EOMI ENT, no trauma, moist mucous membranes, no rhinorrhea Neck: Nontender, No thyromegaly. CVS: Regular rate and rhythm. S1-S2 present. No murmur, gallop or rub. Respiratory : clear to auscultation bilaterally, chest wall nontender Abdomen: Soft, nontender, nondistended, normal bowel sounds, no masses : Deferred Back: Nontender, no CVA tenderness, no midline spinal tenderness, deformities, step-offs Extremities: Nontender full range of motion, no trauma Skin: Normal color, no trauma, abrasions Neuro: Alert, oriented, cranial nerves II through XII grossly intact. Psychiatry: Normal mood. Normal affect. Not depressed. Not anxious. Results Lab / Micro Data Result Diagrams: 04/07/23 05:43 04/06/23 17:47 Labs: Laboratory Results - last 24 hr 04/06/23 17:47: WBC 8.0, RBC 3.63 L, Hgb 10.2 L, Hct 31.1 L, MCV 85.7, MCH 28.1, MCHC 32.8, RDW Std Deviation 41.4, RDW Coeff of Sol 13.2, Plt Count 329, MPV 9.7, Immature Gran % (Auto) 0.400, Neut % (Auto) 86.5 H, Lymph % (Auto) 8.9 L, [place] % (Auto) 3.9, Eos % (Auto) 0.0, Baso % (Auto) 0.3, Absolute Neuts (auto) 6.9, Absolute Lymphs (auto) 0.71 L, Nucleated RBC % 0 04/06/23 17:47: Sodium 126 L, Potassium 4.9, Chloride 94 L, Carbon Dioxide 14.0 L, Anion Gap 18 H, BUN 92 H, Creatinine 12.30 H*, Estim Creat Clear Calc 3.47, Est GFR (MDRD) Af Amer 4 L, Est GFR (MDRD) Non-Af 3 L, BUN/Creatinine Ratio 7.5 L, Glucose 75, Calcium 9.4, Total Bilirubin 0.60, Direct Bilirubin 0.13, AST 17, ALT < 6 L, Alkaline Phosphatase 95, Troponin I High Sens 21, Total Protein 8.2, Albumin 3.1 L, Globulin 5.1 H, Lipase 65 04/06/23 18:27: Urine Color Yellow, Urine Clarity Sl. Cloudy, Urine pH 5.0, Ur Specific [place] 1.010, Urine Protein 100 H, Urine Glucose (UA) Normal, Urine Ketones 5 H, Urine Occult Blood 250 H, Urine Nitrite Negative, Urine Bilirubin Negative, Urine Urobilinogen Normal, Ur Leukocyte Esterase 500 H, Urine RBC 5-10 SEEN, Urine WBC 10-25 SEEN, Ur Squamous Epith Cells 5-10 SEEN, Amorphous Sediment 1+ URATE, Urine Bacteria RARE, Urine Mucus 0 SEEN Radiology Impression Venous Duplex 04/06/23 17:15 IMPRESSION: Normal bilateral lower extremity duplex venous ultrasound. Electronically Signed: Frankie Sierra MD at 19:50 EDT , Chest X-Ray 04/06/23 17:52 IMPRESSION: No radiographic evidence of acute cardiopulmonary disease. Electronically Signed: Frankie Sierra MD at 18:05 EDT , Abdomen/Pelvis CT 04/06/23 19:15 IMPRESSION: 1. Bilateral hydronephrosis and proximal hydroureter. Left ureteral stent is in good position. No obvious stones are identified. 2. Soft tissue in the retroperitoneum which may represent adenopathy possibly creating extrinsic compression on the ureters. The lack of IV contrast decreases sensitivity for detection of pathology. 3. Sclerotic area in the anterior aspect of L4 possibly representing early metastatic disease. Further evaluation with MRI may be beneficial. 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 Left ureteral stent in good position. No obvious stone identified. Soft tissue in retroperitoneum which may represent adenopathy possibly creating extrinsic compression of the ureters. Diuretic area anterior aspect of L4 possibly presenting any metastatic disease. MRI was recommended for further evaluation. Abdomen/pelvis CT was visualized and independently interpreted and I agree with radiologist interpretation. Received Bentyl in the emergency department. IR and urology consult. ROSHAN on CKD stage IIIa ROSHAN likely secondary to hydronephrosis. Urology and IR consult as above. Hold nephrotoxins. Hypertensive urgency Highest blood pressure on presentation was 200. Received hydralazine IV at the emergency department. Hydralazine IV as needed ordered. Trend blood pressures. Hematemesis Gastric occult ordered. Trend CBC. Initially Pepcid ordered and then changed to Protonix. GI cocktail x1. Hyponatremia Sodium of 126 on presentation. Trend. Gentle IV hydration ordered. Avoid nephrotoxins. DVT prophylaxis: SCDs ordered. Charges/Coding Visit Charges Inpatient E&M: 39312 Init Hosp L3
[2023-04-06] MEDS: 0.9% Normal Saline 1,000 ML 150 ML IV (21:29)
[2023-04-06] MEDS: Dicyclomine 20 MG/2 ML Vial IM (21:35)
[2023-04-06] MEDS: 0.9% Normal Saline 1,000 ML 100 ML IV (23:46)
[2023-04-07] VITALS (25 sets, daily range): BP systolic 113–204; BP diastolic 46–106; PULSE 81–125; RESP 13–28; TEMP 35.9–36.9; O2SAT 96–100; BMI 30.6
[2023-04-07] MEDS: Ondansetron 4 MG/2 ML Vial IV ×2 (00:27→16:22)
[2023-04-07] MEDS: Famotidine 200 MG/20 ML MDV 20 MG in 0.9% Normal Saline (Pres. free 8 ML 300 MG IV (01:29)
[2023-04-07] MEDS: hydrALAZINE 20 MG/ML Vial 10 MG IV ×2 (04:37→15:44)
[2023-04-07] MEDS: 0.9% Saline Lock 10 ML Syringe IV (04:40)
[2023-04-07 06:12] LABS: Absolute Lymphocyte Count 0.88 X10^3/uL (0.83-4.51); Absolute Neutrophil Count 6.8 X10^3/uL (2.0-7.7); Basophil# 0.01 X10^3/uL; Basophil% 0.1 % (0-1); Hematocrit 27.6 % (37-47); Hemoglobin 9.4 g/dL (12.0-15.0); Lymphocyte # 0.88 X10^3/ul (0.83-4.51); Lymphocyte % 10.9 % (19-41); Mean Corp Hgb Conc 34.1 g/dL (32-36); Mean Corpuscular Hgb 28.7 pg (27.0-32.0); Mean Corpuscular Volume 84.1 fL (81-99); Mean Platelet Vol. 9.8 fl (6.2-12.0); Monocyte# 0.43 X10^3/uL; Monocyte% 5.3 % (0-10); NRBC Flagged by Analyzer 0 % (0-5); Neutrophil # 6.76 X10^3/uL (2.7-7.7); Neutrophil % 83.3 % (47-70); Platelet Count 345 K/mm3 (150-450); RBC Distribution Width CV 13.2 % (11.6-14.6); RBC Distribution Width SD 40.6 fl (35.1-43.9); Red Blood Count 3.28 M/mm3 (4.2-5.4); White Blood Count 8.1 K/mm3 (4.4-11.0)
[2023-04-07 06:47] LABS: Anion Gap 17 (5-15); BUN 96 mg/dL (7-18); BUN/Creat Ratio 7.9 RATIO (10-20); Calcium,Total 9.2 mg/dL (8.5-10.1); Chloride 98 mmol/L (98-107); EST Glomerular Filtration Rate 3 mL/min (>60); Est Glom Filt Rate - Afr Amer 4 mL/min (>60); Glucose 78 mg/dL (74-106); Potassium 5.1 mmol/L (3.5-5.1); Sodium Level 128 mmol/L (136-145)
[2023-04-07] MEDS: Mag Hydrox/Al Hydrox/Simeth 30 ML UDC PO (07:42)
[2023-04-07] MEDS: 0.9% Normal Saline 1,000 ML 100 ML IV (07:44)
--- NOTE | 2023-04-07 08:27 | CON.PCM_ITS ---
Assessment & Plan Assessment/Plan (1) Hydronephrosis: (2) Renal failure: (3) Ovarian cancer: PLAN: Plan I have spoken with the patient, Dr. Nance and interventional radiology department. This patient needs to have multi specialty involvement so that she can understand what it means to agree to bilateral percutaneous nephrostomy tubes, dialysis, life extending medical measures etc. She reports that she does not want to be in pain yet she is still wanting to proceed with interventions. Dr. Nance will be speaking with the patient and family and I recommend also a discussion with hospice/palliative care. At this point, further urologic intervention aside from bilateral percutaneous nephrostomy tubes will likely not be successful given the degree of external compression of the ureters. I had difficulty in changing her left ureteral stent and could not slide a wire alongside the stent before removal. I will be available peripherally as needed. HPI Consult Data Date of Consult: 04/07/23 HPI Narrative Reason for Consultation: bilateral hydronephrosis, acute on chronic renal failure HPI Narrative: ADAM DUENAS, is a 72 F who presented to the hospital with nausea, vomiting and abdominal pain, was found to have Cr of 12. She has known metastatic ovarian carcinoma and has elected to not pursue further medical management for this issue. She had a left ureteral stent placed by an outlying institution and this stent was changed for routine management on of last week. At that time she had minimal left lower quadrant abdominal pain which is her baseline. She reports that over the last 2 days her abdominal pain significantly increased and was also associated now with nausea and vomiting. I discussed with her prior to stent change that the right kidney was obstructed as well and we discussed insertion of a right-sided ureteral stent at that time. We decided against it as she was not having any flank pain or discomfort from her obstruction. I had a discussion with her this morning which was difficult. She is not sure what she wants to do. We talked about the fact that if we place percutaneous nephrostomy tubes that they will not be able to be removed from a functional standpoint. She has not spoken with nephrology at this point. She says she does not want to do anything that is going to cause her pain, yet she seems to want to proceed with percutaneous nephrostomy tubes. I am confused and have recommended further evaluation and discussion with medicine, nephrology and hospice/palliative care. 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 Diabetes Former smoker GERD (gastroesophageal reflux disease) Grief Hemorrhoid History of edema History of ovarian cancer History of pain when walking History of renal disease HTN (hypertension) Hypercholesterolemia Hyperlipidemia Loose, teeth Measles Neoplasm Ovarian cancer Pruritus Pulmonary embolism Syncope Wears glasses Home Medications apixaban 5 mg tablet (Eliquis) 5 mg PO DAILY 03/26/23 [History Last Taken 03/30/23] furosemide 20 mg tablet 20 mg PO QHS diuretic 03/26/23 [History Last Taken Unknown] losartan 50 mg tablet 25 mg PO DAILY HTN 03/26/23 [History Last Taken 04/02/23] cephalexin 500 mg capsule 500 mg PO Q12 post-operative 3 days #6 CAPSULES 04/02/23 [Rx Last Taken Unknown] Allergy/AdvReac Type Severity Reaction Status Date / Time No Known Allergies Allergy Verified 04/06/23 16:52 Family History Mother CVA (cerebral vascular accident) Brother Diabetes Surgical History History of total hysterectomy with bilateral salpingo-oophorectomy (BSO) Social History Smoking Status: Former smoker alcohol intake: never substance use type: does not use ROS Constitutional Constitutional: Reports fatigue and poor appetite Eyes Eyes: Reports systems reviewed and no addt'l complaints, except as documented ENT HEENT: Reports systems reviewed and no addt'l complaints, except as documented Cardiovascular Cardiovascular: Reports abdominal pain, leg edema, nausea and vomiting Respiratory/Chest Respiratory/Chest: Denies change in mental status or dyspnea Gastrointestinal Gastrointestinal: Reports abdominal pain, anorexia, constipation, nausea and vomiting Genitourinary Genitourinary: Reports abdominal discomfort; Denies burning urination, difficulty urinating or hematuria Musculoskeletal Musculoskeletal: Reports systems reviewed and no addt'l complaints, except as documented Integumentary Integumentary: Reports systems reviewed and no addt'l complaints, except as documented Neurologic Neurologic: Reports systems reviewed and no addt'l complaints, except as documented Psychiatric Psychiatric: Reports systems reviewed and no addt'l complaints, except as documented Endocrine Endocrinology: Reports systems reviewed and no addt'l complaints, except as documented Hematologic/Lymphatic Hematologic/Lymphatic: Reports systems reviewed and no addt'l complaints, except as documented Allergic/Immunologic Allergic/Immunologic: Reports systems reviewed and no addt'l complaints, except as documented Physical Exam Const alert, oriented x3 and no apparent distress General Appearance: cooperative, comfortable, well kempt and well developed HEENT normocephalic, head/scalp atraumatic, hearing grossly normal bilaterally, external nose normal and moist oral mucous membranes Eyes General Eye: normal appearance of both eyes Neck supple General: normal visual inspection Lymph Lymphatic: lymphedema Chest inspection of chest normal Resp normal respiratory effort, normal air movement, no retractions and no use of accessory muscles Effort and Inspection: able to speak in complete sentences and symmetric chest movement Cardio regular rate GI soft to palpation Skin no rashes or lesions noted Neuro oriented x3, CN's II-XII intact bilaterally and moves all extremities Psych mental status grossly normal Psych Narrative: I question whether she understands the concept of hospice versus aggressive management and what the consequences of her decisions will actually be. Lab / Micro Data Result Diagrams: 04/07/23 05:43 04/07/23 05:43 Labs: Laboratory Results - last 24 hr 04/06/23 17:47: WBC 8.0, RBC 3.63 L, Hgb 10.2 L, Hct 31.1 L, MCV 85.7, MCH 28.1, MCHC 32.8, RDW Std Deviation 41.4, RDW Coeff of Sol 13.2, Plt Count 329, MPV 9.7, Immature Gran % (Auto) 0.400, Neut % (Auto) 86.5 H, Lymph % (Auto) 8.9 L, [place] % (Auto) 3.9, Eos % (Auto) 0.0, Baso % (Auto) 0.3, Absolute Neuts (auto) 6.9, Absolute Lymphs (auto) 0.71 L, Nucleated RBC % 0 04/06/23 17:47: Sodium 126 L, Potassium 4.9, Chloride 94 L, Carbon Dioxide 14.0 L, Anion Gap 18 H, BUN 92 H, Creatinine 12.30 H*, Estim Creat Clear Calc 3.47, Est GFR (MDRD) Af Amer 4 L, Est GFR (MDRD) Non-Af 3 L, BUN/Creatinine Ratio 7.5 L, Glucose 75, Calcium 9.4, Total Bilirubin 0.60, Direct Bilirubin 0.13, AST 17, ALT < 6 L, Alkaline Phosphatase 95, Troponin I High Sens 21, Total Protein 8.2, Albumin 3.1 L, Globulin 5.1 H, Lipase 65 04/06/23 18:27: Urine Color Yellow, Urine Clarity Sl. Cloudy, Urine pH 5.0, Ur Specific [place] 1.010, Urine Protein 100 H, Urine Glucose (UA) Normal, Urine Ketones 5 H, Urine Occult Blood 250 H, Urine Nitrite Negative, Urine Bilirubin Negative, Urine Urobilinogen Normal, Ur Leukocyte Esterase 500 H, Urine RBC 5-10 SEEN, Urine WBC 10-25 SEEN, Ur Squamous Epith Cells 5-10 SEEN, Amorphous [place] t 1+ URATE, Urine Bacteria RARE, Urine Mucus 0 SEEN 04/07/23 05:43: WBC 8.1, RBC 3.28 L, Hgb 9.4 L, Hct 27.6 L, MCV 84.1, MCH 28.7, MCHC 34.1, RDW Std Deviation 40.6, RDW Coeff of Sol 13.2, Plt Count 345, MPV 9.8, Immature Gran % (Auto) 0.400, Neut % (Auto) 83.3 H, Lymph % (Auto) 10.9 L, [place] % (Auto) 5.3, Eos % (Auto) 0.0, Baso % (Auto) 0.1, Absolute Neuts (auto) 6.8, Absolute Lymphs (auto) 0.88, Nucleated RBC % 0 04/07/23 05:43: Sodium 128 L, Potassium 5.1, Chloride 98, Carbon Dioxide 13.0 L, Anion Gap 17 H, BUN 96 H, Creatinine 12.20 H*, Estim Creat Clear Calc 3.50, Est GFR (MDRD) Af Amer 4 L, Est GFR (MDRD) Non-Af 3 L, BUN/Creatinine Ratio 7.9 L, Glucose 78, Calcium 9.2 Micro: Microbiology 04/06/23 18:27 Urine, Clean Catch Urine Culture - Preliminary Culture exhibits no growth. 04/07/23 01:40 Gastric Fluid/Contents Gastric Occult Blood - Final Radiology Impression Venous Duplex 04/06/23 17:15 IMPRESSION: Normal bilateral lower extremity duplex venous ultrasound. Electronically Signed: Frankie Sierra MD at 19:50 EDT , Chest X-Ray 04/06/23 17:52 IMPRESSION: No radiographic evidence of acute cardiopulmonary disease. Electronically Signed: Frankie Sierra MD at 18:05 EDT , Abdomen/Pelvis CT 04/06/23 19:15 IMPRESSION: 1. Bilateral hydronephrosis and proximal hydroureter. Left ureteral stent is in good position. No obvious stones are identified. 2. Soft tissue in the retroperitoneum which may represent adenopathy possibly creating extrinsic compression on the ureters. The lack of IV contrast decreases sensitivity for detection of pathology. 3. Sclerotic area in the anterior aspect of L4 possibly representing early metastatic disease. Further evaluation with MRI may be beneficial. Electronically Signed: Frankie Sierra MD at 20:14 EDT ,
--- NOTE | 2023-04-07 11:50 | CASEMGMT ---
RN CM Face to Face with patient for initial transition planning/care coordination assessment. RN CM introduced self and role at [facility]. Patient lying in bed, alert and oriented. Patient willing to participate in assessment and is able to answer all questions appropriately. Care providers, pharmacy, and demographics verified. Patient wishes to discharge home, denies need for home health at this time. Patient states he has no further needs or concerns at this time. CM to follow for discharge planning needs that may arise. PCP: [facility] Specialists: Xavi md ophthalmologist; [facility] urologist Preferred Pharmacy: [facility] Insurance: [employer] Prescription Benefit: yes Living Will/HPOA: none LNOK: granddaughter Living Arrangements: Patient lives alone in a mobile home with 2 steps and railing to enter the home. Patient states she is independent at home. Transportation: self, granddaughter DME/HHC: Patient has cane and walker at home. No previous HHC or SNF Disposition Plan: Patient to discharge home with family support and follow-up plans in place. Veronica FULLER, RN, CM
--- NOTE | 2023-04-07 13:31 | PCM.CONS.R ---
Assessment & Plan Assessment/Plan (1) Acute renal failure: PLAN: due to obstruction s/p ureteral stent. Recommend PNT by . Pt not a dialysis candidate due to metastatic cancer declining treatment. Would recommend hospice if renal fxn does not improve with PNT placement. Avoid nephrotoxin. Hold vasomotor drugs eg contrast, ACEI/ARB, diuretics (2) Hydronephrosis: PLAN: bilateral on CT with extrinsic compression. 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 May need bicarb replacement (8) Uremia: PLAN: due to renal failure. Monitor renal fxn after PNT placement HPI Consult Data Date of Consult: 04/08/23 HPI Narrative Reason for Consultation: acute renal failure HPI Narrative: ADAM DUENAS, is a 72 F who presents to ED with abdominal pain, gas, anorexia. She has a history of ovarian cancer with metastasis. In November 2009 she underwent an exploratory laparotomy, total abdominal hysterectomy, bilateral salpingo-oophorectomy by Dr. Quiroz for ovarian cancer. She underwent ureteral stent on 04/02/[address] abdomen showed bilateral hydronephrosis with extrinsic compression of ureters. Urine output poor. Creatinine progressed to 12 on admit. She has persistent nausea, vomiting with poor appetite, food not taste right. She was seen on initial consult in February with creatinine 2 to 3. She declined dialysis since she did not want to move forward on chemotherapy for her cancer. She has a history of pulmonary embolism and DVT, hypertension, diabetes, AAA, metastatic ovarian cancer. 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 Diabetes Former smoker GERD (gastroesophageal reflux disease) Grief Hemorrhoid History of edema History of ovarian cancer History of pain when walking History of renal disease HTN (hypertension) Hypercholesterolemia Hyperlipidemia Loose, teeth Measles Neoplasm Ovarian cancer Pruritus Pulmonary embolism Syncope Wears glasses Home Medications apixaban 5 mg tablet (Eliquis) 5 mg PO DAILY 03/26/23 [History Last Taken 03/30/23] furosemide 20 mg tablet 20 mg PO QHS diuretic 03/26/23 [History Last Taken Unknown] losartan 50 mg tablet 25 mg PO DAILY HTN 03/26/23 [History Last Taken 04/02/23] cephalexin 500 mg capsule 500 mg PO Q12 post-operative 3 days #6 CAPSULES 04/02/23 [Rx Last Taken Unknown] Allergy/AdvReac Type Severity Reaction Status Date / Time No Known Allergies Allergy Verified 04/06/23 16:52 Family History Mother CVA (cerebral vascular accident) Brother Diabetes Surgical History History of total hysterectomy with bilateral salpingo-oophorectomy (BSO) Social History Smoking Status: Former smoker alcohol intake: never substance use type: does not use ROS Constitutional Constitutional: Reports weakness; Denies chills or fever(s) Eyes Eyes: Denies loss of vision Cardiovascular Cardiovascular: Denies chest pain Respiratory/Chest Respiratory/Chest: Denies dyspnea on exertion Gastrointestinal Gastrointestinal: Reports abdominal pain, anorexia, dry heaves, nausea and vomiting; Denies diarrhea, hematemesis, hematochezia or melena Genitourinary Genitourinary: Reports change in urinary stream and other Details: decreased urine output ; Denies flank pain Musculoskeletal Musculoskeletal: Reports other Details: weakness Neurologic Neurologic: Denies syncope or tremor(s) Psychiatric Psychiatric: Denies confusion Hematologic/Lymphatic Hematologic/Lymphatic: Reports anemia Physical Exam Const alert and oriented x3 General Appearance: well developed HEENT normocephalic Head and Scalp: atraumatic Eyes EOMs intact bilaterally Neck no JVD Resp clear to auscultation bilaterally Cardio regular rate and no rub GI non-tender and non-distended Auscultation: normoactive bowel sounds Palpation: soft Extremity no clubbing, cyanosis or edema Neuro CN's II-XII intact bilaterally Sensorium / Orientation: awake and alert Psych cooperative Lab / Micro Data Result Diagrams: 04/08/23 06:11 04/08/23 06:11 Labs: Laboratory Results - last 24 hr 04/06/23 17:47: WBC 8.0, RBC 3.63 L, Hgb 10.2 L, Hct 31.1 L, MCV 85.7, MCH 28.1, MCHC 32.8, RDW Std Deviation 41.4, RDW Coeff of Sol 13.2, Plt Count 329, MPV 9.7, Immature Gran % (Auto) 0.400, Neut % (Auto) 86.5 H, Lymph % (Auto) 8.9 L, [place] % (Auto) 3.9, Eos % (Auto) 0.0, Baso % (Auto) 0.3, Absolute Neuts (auto) 6.9, Absolute Lymphs (auto) 0.71 L, Nucleated RBC % 0 04/06/23 17:47: Sodium 126 L, Potassium 4.9, Chloride 94 L, Carbon Dioxide 14.0 L, Anion Gap 18 H, BUN 92 H, Creatinine 12.30 H*, Estim Creat Clear Calc 3.47, Est GFR (MDRD) Af Amer 4 L, Est GFR (MDRD) Non-Af 3 L, BUN/Creatinine Ratio 7.5 L, Glucose 75, Calcium 9.4, Total Bilirubin 0.60, Direct Bilirubin 0.13, AST 17, ALT < 6 L, Alkaline Phosphatase 95, Troponin I High Sens 21, Total Protein 8.2, Albumin 3.1 L, Globulin 5.1 H, Lipase 65 04/06/23 18:27: Urine Color Yellow, Urine Clarity Sl. Cloudy, Urine pH 5.0, Ur Specific [place] 1.010, Urine Protein 100 H, Urine Glucose (UA) Normal, Urine Ketones 5 H, Urine Occult Blood 250 H, Urine Nitrite Negative, Urine Bilirubin Negative, Urine Urobilinogen Normal, Ur Leukocyte Esterase 500 H, Urine RBC 5-10 SEEN, Urine WBC 10-25 SEEN, Ur Squamous Epith Cells 5-10 SEEN, Amorphous Sediment 1+ URATE, Urine Bacteria RARE, Urine Mucus 0 SEEN 04/07/23 05:43: WBC 8.1, RBC 3.28 L, Hgb 9.4 L, Hct 27.6 L, MCV 84.1, MCH 28.7, MCHC 34.1, RDW Std Deviation 40.6, RDW Coeff of Sol 13.2, Plt Count 345, MPV 9.8, Immature Gran % (Auto) 0.400, Neut % (Auto) 83.3 H, Lymph % (Auto) 10.9 L, [place] % (Auto) 5.3, Eos % (Auto) 0.0, Baso % (Auto) 0.1, Absolute Neuts (auto) 6.8, Absolute Lymphs (auto) 0.88, Nucleated RBC % 0 04/07/23 05:43: Sodium 128 L, Potassium 5.1, Chloride 98, Carbon Dioxide 13.0 L, Anion Gap 17 H, BUN 96 H, Creatinine 12.20 H*, Estim Creat Clear Calc 3.50, Est GFR (MDRD) Af Amer 4 L, Est GFR (MDRD) Non-Af 3 L, BUN/Creatinine Ratio 7.9 L, Glucose 78, Calcium 9.2 Micro: Microbiology 04/07/23 01:40 Gastric Fluid/Contents Gastric Occult Blood - Final Occult Blood Positive 04/06/23 18:27 Urine, Clean Catch Urine Culture - Preliminary Culture exhibits no growth. Radiology Impression Venous Duplex 04/06/23 17:15 IMPRESSION: Normal bilateral lower extremity duplex venous ultrasound. Electronically Signed: Frankie Sierra MD at 19:50 EDT , Chest X-Ray 04/06/23 17:52 IMPRESSION: No radiographic evidence of acute cardiopulmonary disease. Electronically Signed: Frankie Sierra MD at 18:05 EDT , Abdomen/Pelvis CT 04/06/23 19:15 IMPRESSION: 1. Bilateral hydronephrosis and proximal hydroureter. Left ureteral stent is in good position. No obvious stones are identified. 2. Soft tissue in the retroperitoneum which may represent adenopathy possibly creating extrinsic compression on the ureters. The lack of IV contrast decreases sensitivity for detection of pathology. 3. Sclerotic area in the anterior aspect of L4 possibly representing early metastatic disease. Further evaluation with MRI may be beneficial. Electronically Signed: Frankie Sierra MD at 20:14 EDT ,
--- NOTE | 2023-04-07 14:19 | PCM.PN.HOSP ---
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 Patient discussed with nephrology and decision was made to pursue percutaneous nephrostomy tubes Objective Data Objective Data Vital Signs: Vital Signs Temp Pulse Resp BP Pulse Ox O2 Del Method 97.9 F 89 18 165/75 H 96 Room Air 04/07/23 04:22 04/07/23 04:37 04/07/23 04:22 04/07/23 04:37 04/07/23 07:20 04/07/23 10:00 Oxygen Delivery Method Room Air Weight: 78.4 kg Body Mass Index (BMI) 30.6 Intake & Output: Intake and Output for Last 24 Hours 04/05/23 04/06/23 04/07/23 23:59 23:59 23:59 Intake Total 342.5 / 392.5 1086.67 / 1086.67 Output Total 300 / 300 Balance 342.5 / 192.5 786.67 / 786.67 Lab / Micro Data Result Diagrams: 04/07/23 05:43 04/07/23 05:43 Labs: Laboratory Results - last 24 hr 04/06/23 17:47: WBC 8.0, RBC 3.63 L, Hgb 10.2 L, Hct 31.1 L, MCV 85.7, MCH 28.1, MCHC 32.8, RDW Std Deviation 41.4, RDW Coeff of Sol 13.2, Plt Count 329, MPV 9.7, Immature Gran % (Auto) 0.400, Neut % (Auto) 86.5 H, Lymph % (Auto) 8.9 L, Grimes % (Auto) 3.9, Eos % (Auto) 0.0, Baso % (Auto) 0.3, Absolute Neuts (auto) 6.9, Absolute Lymphs (auto) 0.71 L, Nucleated RBC % 0 04/06/23 17:47: Sodium 126 L, Potassium 4.9, Chloride 94 L, Carbon Dioxide 14.0 L, Anion Gap 18 H, BUN 92 H, Creatinine 12.30 H*, Estim Creat Clear Calc 3.47, Est GFR (MDRD) Af Amer 4 L, Est GFR (MDRD) Non-Af 3 L, BUN/Creatinine Ratio 7.5 L, Glucose 75, Calcium 9.4, Total Bilirubin 0.60, Direct Bilirubin 0.13, AST 17, ALT < 6 L, Alkaline Phosphatase 95, Troponin I High Sens 21, Total Protein 8.2, Albumin 3.1 L, Globulin 5.1 H, Lipase 65 04/06/23 18:27: Urine Color Yellow, Urine Clarity Sl. Cloudy, Urine pH 5.0, Ur Specific Sumner 1.010, Urine Protein 100 H, Urine Glucose (UA) Normal, Urine Ketones 5 H, Urine Occult Blood 250 H, Urine Nitrite Negative, Urine Bilirubin Negative, Urine Urobilinogen Normal, Ur Leukocyte Esterase 500 H, Urine RBC 5-10 SEEN, Urine WBC 10-25 SEEN, Ur Squamous Epith Cells 5-10 SEEN, Amorphous Sediment 1+ URATE, Urine Bacteria RARE, Urine Mucus 0 SEEN 04/07/23 05:43: WBC 8.1, RBC 3.28 L, Hgb 9.4 L, Hct 27.6 L, MCV 84.1, MCH 28.7, MCHC 34.1, RDW Std Deviation 40.6, RDW Coeff of Sol 13.2, Plt Count 345, MPV 9.8, Immature Gran % (Auto) 0.400, Neut % (Auto) 83.3 H, Lymph % (Auto) 10.9 L, Grimes % (Auto) 5.3, Eos % (Auto) 0.0, Baso % (Auto) 0.1, Absolute Neuts (auto) 6.8, Absolute Lymphs (auto) 0.88, Nucleated RBC % 0 04/07/23 05:43: Sodium 128 L, Potassium 5.1, Chloride 98, Carbon Dioxide 13.0 L, Anion Gap 17 H, BUN 96 H, Creatinine 12.20 H*, Estim Creat Clear Calc 3.50, Est GFR (MDRD) Af Amer 4 L, Est GFR (MDRD) Non-Af 3 L, BUN/Creatinine Ratio 7.9 L, Glucose 78, Calcium 9.2 Micro: Microbiology 04/07/23 01:40 Gastric Fluid/Contents Gastric Occult Blood - Final Occult Blood Positive 04/06/23 18:27 Urine, Clean Catch Urine Culture - Preliminary Culture exhibits no growth. Radiography Diagnostic Testing: Radiology Impression Venous Duplex 04/06/23 17:15 IMPRESSION: Normal bilateral lower extremity duplex venous ultrasound. Electronically Signed: Frankie Sierra MD at 19:50 EDT , Chest X-Ray 04/06/23 17:52 IMPRESSION: No radiographic evidence of acute cardiopulmonary disease. Electronically Signed: Frankie Sierra MD at 18:05 EDT , Abdomen/Pelvis CT 04/06/23 19:15 IMPRESSION: 1. Bilateral hydronephrosis and proximal hydroureter. Left ureteral stent is in good position. No obvious stones are identified. 2. Soft tissue in the retroperitoneum which may represent adenopathy possibly creating extrinsic compression on the ureters. The lack of IV contrast decreases sensitivity for detection of pathology. 3. Sclerotic area in the anterior aspect of L4 possibly representing early metastatic disease. Further evaluation with MRI may be beneficial. Electronically Signed: Frankie Sierra MD at 20:14 EDT , Physical Exam Narrative General: Alert, oriented, no apparent distress HEENT: Atraumatic, normocephalic Eyes: Anicteric, normal conjunctiva, extraocular movements grossly intact Neck: Supple Respiratory: No wheezes or rhonchi, normal respiratory effort Cardiovascular: Regular rate and rhythm GI: Soft, nontender, nondistended Extremities: Bilateral lower extremity edema 1+ Musculoskeletal: Moving all extremities Neuro: No overt focal neurological deficits Skin: No rashes appreciated Psych: Cooperative Assessment & Plan Assessment/Plan (1) Acute renal failure: (2) Hydronephrosis: (3) Ovarian cancer: (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 Potter on 04/02/2023 which she tolerated at the time but has had worsening renal function obstruction since that time presumed to be due to her metastatic ovarian cancer -Urology consulted and discussed with patient they wanted to discuss with nephrology regarding if dialysis may be an option -Nephrology consulted and ultimately patient decided on percutaneous nephrostomy tubes -Ordered to be placed through interventional radiology -Discussed with urology and nephrology -This morning prior to any decisions discussed extensively with patient regarding hospice versus further interventions and she is able to tell me her medical problems and her understanding of her cancer as well as what she is here for and she was alert and oriented and seem to be able to understand the general risks and benefits of options, the time of exam I do feel she was capable of making this medical decision -Monitor I's and O's, poor urine output so fluids were discontinued #High anion gap metabolic acidosis -Likely secondary to uremia -Patient for nephrostomy tubes, recheck BMP this evening #DVT -Eliquis presently on hold, will need to resume as soon as is reasonably safe especially given her hypercoagulable state #Hypertensive urgency -Had been better after ED however spiked up again, will add as needed and can consider scheduling medication but may improve after nephrostomy tubes are placed #Anemia -Endorsed 2 episodes of vomiting with streaks of blood with epigastric pain prior to coming in -Gastric occult was positive but no further episodes and no overt bleeding so difficult to assess clinical significance, continue to trend H&H, patient for nephrostomy tubes, can consider GI consult if any further drop in hemoglobin though suspect her hemoglobin 9.4 from 10.2 yesterday may have been in part delusional she was receiving IV fluids with poor urine output. We will also need to keep in mind prognosis and symptoms -We will continue PPI for now #DVT ppx: SCDs Candice Nance MD Time spent in the patient's overall evaluation,decision-making process, review of diagnostic data, adjustment of management, discussion with other providers, nursing nursing and ancillary staff involved in patient's care documentation, 45 minutes Charges/Coding Visit Charges Inpatient E&M: 50551 Subs Hosp L3
--- NOTE | 2023-04-07 15:16 | CT_ITS ---
INDICATION: hydronephrosis EXAMINATION: LIMITED CT ABDOMEN WITHOUT CONTRAST - TECHNIQUE: Helically acquired color worker images of the upper abdomen were obtained without oral or IV contrast. A radiation dose optimization technique was used for this scan. IV Contrast dosage and agent: None. Oral contrast: None. RADIATION DOSAGE (If Supplied By Facility): CTDIvol = ( 17.04 ) mGy, DLP = ( 624.01 ) mGycm COMPARISON: CT abdomen pelvis from 04/06/2023. FINDINGS: Nephrostomy tube placement attempt: Initial color worker images were obtained with redemonstration of moderate bilateral hydroureteronephrosis. There is a nephroureteral stent in place within the left kidney. A suitable approach was selected in the right kidney. During color worker attempt patient complained of severe back pain while lying in the prone position and difficulty remaining still. She also demonstrated persistent highly elevated blood pressure, exacerbated by anxiety and pain. Sedation attempts were made approximately 2 mg of Versed and 150 mcg of fentanyl (sedation start time: 1528. Stop time: 1610). Despite sedation since, patient could not be sedated due to pain but was initially able to tolerate initial steps the procedure. Superficial and deep numbing to the level of the peritoneum was achieved with 10 cc of 2% lidocaine utilizing a 22-gauge spinal needle and 25-gauge injection needle. A small skin rylan was then made. An initial attempt to place a 21-gauge introducer needle was made. The patient began to bleed superficially from the skin neck. The trajectory was checked under CT which demonstrated no significant hemorrhage. Despite holding pressure, the patient continued to bleed superficially with greater than expected time to achieve hemostasis after about 10 minutes of pressure. She could not tolerate laying on her back longer and the decision was made to end the procedure. I discussed the case with the patient who understood why further attempt was not made today. I also informed her I would be correlating with her urologist, hospitalist, and anesthesia for discussion of further care. She was returned to the floor in stable condition. I discussed the case with Dr. Potter, urologist, and Dr. Nance, hospitalist. I discussed with them that it would be best to perform this procedure with anesthesia if another attempt was needed. I also discussed with them the excessive bleeding superficially, despite the patient not being on her eliquiss since last week and having a normal platelet count, and the risks for bleeding in the kidney given her lack of coagulation. Per our discussion, Dr. Potter will attempt a stent placement in the right kidney. If she is unable to, we will assess if bilateral nephrostomy tube placement attempt should be made again. Detailed note is also dictated within the patient''s chart. CT/Limited or Localized F/U CT IMPRESSION: As above. Electronically Signed: Joel Shelby DO at 17:28 EDT ,
[2023-04-07] MEDS: Midazolam 2 MG/2 ML Syringe IV ×2 (15:28→16:00)
[2023-04-07] MEDS: fentaNYL 100 MCG/2 ML Ampul IV ×3 (15:30→15:58)
[2023-04-07] MEDS: Lidocaine 2% (20 ml mdv) 20 ML Vial INFILT (15:55)
--- NOTE | 2023-04-07 16:58 | PCM.PN.BLA ---
Progress Note IR NOTE: The patient was brought to IR for nephrostomy tube placement. Patient has bilateral hydroureteronephrosis secondary to mechanical obstruction from metastatic disease. She has a nephrostomy tube in place on the left which was difficult to place. Despite nephrostomy tube she continues to have minimal urine output with worsening uremia. Attempt was made today to place at least one CT guided percutaneous nephrostomy tube. The procedure and potential complications were discussed with the patient who agreed to consent for the procedure. She was placed in the CT machine for initial processes chemical design engineer images. Patient had an extremely difficult time remaining in prone position due to severe backpain and difficulty remaining still. She was given 2 mg versed and 150 mcg Fentanyl but could still not remain still. Her blood pressure remained high in the 180-200/80-100 range during the procedure attempt due to pain. Initial attempt was made and I was able to achieve superficial and deep numbing with lidocaine. I then made a small skin rylan and attempted to advance the introducer needle but the patient started bleeding superficially. CT scanner demonstrated no signs of internal bleeding and minimal bleeding in the subcutaneous fat. Despite pressure, patient continued to bleed superficially with greater than expected time to achieve hemostasis after about 10 min of pressure. She said she could not tolerate laying on her back longer. The case was discussed with Dr. Potter, urology, and Dr. Nance, hospitalist. I discussed that the only way to safely place the tubes would be a higher level of anaesthesia to help her remain still which we are able to do but will have to coordinate with the anaesthesia department. I also discussed the concerns for excess bleeding internally if we were to proceed given the exaggerated amount of bleeding present from just a superficial rylan. Although she has been off eliquiss since last week and her platelet count is normal, it is likely her she remains unable to coagulate due to her uremia. Due to bleeding risks accessing through the kidney, Dr. Potter will attempt another stent placement. Given her lack of treatment options and worsening uremia, we are able to attempt tube placement with anaesthesia if necessary given her worsening condition although her bleeding risk is significant. Dr. Nance and Dr. Potter will let us know if we are needed further. I also discussed the case with the patient who was able to understand that she was returning to the floor for further assessment and the nephrostomy tube would not be placed today.
--- NOTE | 2023-04-07 17:37 | SUR.PREOP ---
ARRIVES TO PACU. PATIENT REPORTEDLY BROUGHT TO DEPARTMENT BY DR ZARATE. PATIENT REPORTEDLY STARTED C/O CHEST PAIN & EPIGASTRIC PRESSURE RADIATING TO RIGHT ARM, THEN LEFT ARM, SHOULDERS, THROUGH TO SHOULDER BLADES RATING 9/10, HAD NAUSEA PRIOR TO TXR TO PACU. PATIENT STATES PAIN IS NOW 6/10, STATES IT WAXES AND WANES. SEE PRE-OP CHECKLIST FOR CURRENT VITALS. SENT A STAT TROPONIN, BMP, CBC TO LAB. ALREADY OBTAINED EKG ON PCU. DR CASTANEDA AT BEDSIDE. ACCUCHECK 74.
[2023-04-07 18:03] LABS: Absolute Lymphocyte Count 0.52 X10^3/uL (0.83-4.51); Absolute Neutrophil Count 10.2 X10^3/uL (2.0-7.7); Basophil# 0.03 X10^3/uL; Basophil% 0.3 % (0-1); Eosinophil# 0.02 X10^3/uL; Eosinophils% 0.2 % (0-5); Hematocrit 29.2 % (37-47); Hemoglobin 9.5 g/dL (12.0-15.0); Lymphocyte # 0.52 X10^3/ul (0.83-4.51); Lymphocyte % 4.4 % (19-41); Mean Corp Hgb Conc 32.5 g/dL (32-36); Mean Corpuscular Hgb 28.2 pg (27.0-32.0); Mean Corpuscular Volume 86.6 fL (81-99); Mean Platelet Vol. 10.1 fl (6.2-12.0); Monocyte# 0.82 X10^3/uL; NRBC Flagged by Analyzer 0 % (0-5); Neutrophil # 10.24 X10^3/uL (2.7-7.7); Neutrophil % 87.5 % (47-70); POSITIVE COUNT YES; POSITIVE DIFFERENTIAL YES; Platelet Count 275 K/mm3 (150-450); RBC Distribution Width CV 13.5 % (11.6-14.6); RBC Distribution Width SD 42.9 fl (35.1-43.9); Red Blood Count 3.37 M/mm3 (4.2-5.4); White Blood Count 11.7 K/mm3 (4.4-11.0)
--- NOTE | 2023-04-07 18:10 | SUR.PREOP ---
REPORTS CHEST PAIN/EPIGASTRIC PRESSURE NOW 01/26. VSS. CALLED LAB FOR TROPONIN RESULTS, INFORMED 11 MORE MINUTES TILL RESULT.
[2023-04-07 18:17] LABS: Anion Gap 19 (5-15); BUN 93 mg/dL (7-18); BUN/Creat Ratio 7.8 RATIO (10-20); Calcium,Total 8.9 mg/dL (8.5-10.1); Chloride 100 mmol/L (98-107); EST Glomerular Filtration Rate 3 mL/min (>60); Est Glom Filt Rate - Afr Amer 4 mL/min (>60); Estimated Creatinine Clearance 3.56 ml/min; Glucose 81 mg/dL (74-106); Sodium Level 131 mmol/L (136-145)
[2023-04-07 18:19] LABS: Troponin-I HS 66 pg/mL (3.0-54.0)
[2023-04-07 18:19] LABS: Differential Indicated SCAN CRITERIA MET
--- NOTE | 2023-04-07 18:34 | PN.HOSP_ITS ---
Hospitalist Note Patient went down for nephrostomy tube with interventional radiology however had difficulty laying in the correct position due to chronic pain and then when initial incision made there was difficulty with bleeding which was likely to be due to her profound uremia. Dr. Shelby said he would be able to discuss with anesthesia tomorrow regarding possibly doing this under anesthesia so that could be done effectively and safely. Discussed with Dr. Potter, ultimately given kidney function and minimal urine output it was very important to have a procedure done as soon as possible in order to provide relief. Dr. Potter was agreeable to trying right ureteral stent to assess if this would provide any relief though she may still need nephrostomy tubes pending progress. When I went to speak with her after discussing with Dr. Potter she was reporting the epigastric bubbling feeling/belching intermittently. She also reported she had continued to have some of the epigastric/chest pain that sometimes radiated up, sometimes to her right arm, sometimes to her left arm, sometimes to her back. We did use the Carl seismic survey assistant in the event there was something that was not understood in either part. Did order EKG at bedside while discussing and EKG similar to the [address] Potter was present in the room and risks and benefits of proceeding with quick stent placement were discussed and given present symptoms due to worsening clinical status largely attributable to her kidney failure and decision was to take her to the OR for right ureteral stent placement/insertion with minimal anesthesia. Was able to obtain labs while there and hemoglobin was stable with hemoglobin of 9.5, did have increased white blood cell count of 11.7 with left shift, BMP similar to previous, did have troponin of 66. Patient reported this epigastric bubbling feeling/intermittent pain on admission and troponin was within normal limits and she reports this pain is similar to that but with troponin of 66, the pain is coming and going and not associated with shortness of breath do not think she has a PE. Given her kidney function also would not want to perform any scans with contrast, if any increase in suspicion could consider VQ scan. Suspect D-dimer would be elevated and would not increase diagnostic utility at this time. EKG was overall unchanged from admission, will trend troponins, with elevated white blood cell count with left shift query if elevated troponin may be secondary in nature (whether due to infection or due to significantly elevated blood pressure when she went down for nephrostomy tube) with additional difficulty clearing troponins given kidney function. We will start on broad-spectrum antibiotics and obtain blood cultures. Also ordered chest x-ray and a KUB. Suspect she will begin to improve with ureteral stent and improvement in hydronephrosis but will be monitored in PCU.
[2023-04-07 18:35] LABS: Bedside Glucose 74 mg/dL (74-106)
--- NOTE | 2023-04-07 18:50 | RAD_ITS ---
STUDY: X-RAY - ABDOMEN/PELVIS REASON FOR EXAM: Female, 72 years old. epigastric pain TECHNIQUE: Frontal views COMPARISON: None. FINDINGS: Normal visualized lung bases. There is an unremarkable bowel gas pattern. There is no demonstrated free abdominal air. Bilateral ureteral stents. Numerous clips are noted over the upper pelvis and abdomen. Normal soft tissue structures. Degenerative vertebral changes. RAD/Abdomen Single View (Portable) IMPRESSION: No acute pathology of the abdomen and pelvis. Electronically Signed: Manuel Gardner DO at 20:33 EDT ,
--- NOTE | 2023-04-07 18:51 | ECHOD_ITS ---
Reason For Study: CHEST PAIN Procedure This was a 2D Doppler, Color Flow transthoracic echocardiogram. Exam performed portable in patient room. Left Ventricle Normal size and thickness. The left ventricular ejection fraction is 70 %. Diastolic function is indeterminate. Right Ventricle Normal right ventricle. Atria The left and right atria are normal. Mitral Valve Mild mitral annular calcification. Cannot rule out minimal prolapse of the anterior mitral valve leaflet. Mild (1+) mitral valve insufficiency. Tricuspid Valve Trivial tricuspid valve insufficiency. Right ventricular systolic pressure estimated to be 45 mmHg. Aortic Valve Trivial aortic valve insufficiency. Pulmonic Valve The pulmonic valve is not well visualized. Great Vessels Normal sized aortic root. Pericardium/Pleural No pericardial effusion. MMode/2D Measurements & Calculations LVIDd: 4.4 cm IVSd: 1.0 cm Ao root diam: 3.1 cm LVIDs: 2.9 cm LVPWd: 1.0 cm RVDd: 2.9 cm FS: 33.9 % LAV(MOD-bp): 30.4 ml LVAd ap4: 18.0 cm2 SV(MOD-sp4): 27.7 ml LAV(MOD-bp) Indexed: 16.7 ml/m2 LVLd ap4: 6.5 cm LAV(MOD-sp2): 26.8 ml EDV(MOD-sp4): 42.5 ml LAV(MOD-sp4): 34.7 ml EDV(sp4-el): 42.1 ml LVAs ap4: 9.4 cm2 LVLs ap4: 5.4 cm ESV(MOD-sp4): 14.8 ml ESV(sp4-el): 13.8 ml EF(MOD-sp4): 65.2 % EF(sp4-el): 67.1 % SV(sp4-el): 28.3 ml LA A4 area: 15.0 cm2 LA dimension(2D): 3.2 cm RA A4 area: 14.3 cm2 Time Measurements MV dec time: 0.25 sec Doppler Measurements & Calculations MV E max matthias: 70.6 cm/sec Lat Peak E' Matthias: 10.4 cm/sec Med Peak E' Matthias: 8.1 cm/sec MV A max matthias: 122.9 cm/sec E/E' lat: 6.8 E/E' med: 8.7 MV E/A: 0.57 Ao V2 max: 187.7 cm/sec LV V1 max: 135.4 cm/sec PA V2 max: 124.8 cm/sec Ao max P.1 mmHg LV V1 max P.3 mmHg TR max matthias: 318.5 cm/sec TR max P.6 mmHg ECHO/Echo Complete Interpretation Summary The left ventricular ejection fraction is 70 %. Diastolic function is indeterminate. Mild (1+) mitral valve insufficiency. Cannot rule out minimal prolapse of the anterior mitral valve leaflet. Right ventricular systolic pressure estimated to be 45 mmHg. Ordering Physician: Candice Nance Referring Physician: XANDER MARRERO Performed By: Imelda Suresh RDCS
--- NOTE | 2023-04-07 18:55 | PCM.OPRPT ---
Report of Operation Date of Procedure: 04/07/23 Pre-Operative Diagnosis: Acute renal failure, right ureteral obstruction with hydronephrosis Post-Operative Diagnosis: same Surgery/Procedure Performed:: Cystoscopy with right ureteral stent insertion Surgeon: Sharon Potter Type of Anesthesia: MAC Description of Procedure: The patient is a 72-year-old female with multiple medical concerns including acute renal failure with a current creatinine above 12. There was an attempt made at a percutaneous nephrostomy tube insertion earlier today there was unsuccessful secondary to patient discomfort and bleeding. The decision was made between the medicine service, anesthesia, radiology and myself with the patient to proceed with a right ureteral stent insertion with as minimal anesthesia as possible. Just prior to taking the patient back to the operating room, chest pain began. An EKG showed no changes however troponin was mildly elevated at 66. A discussion was had with the patient and she decided to proceed with intervention despite the risk of cardiac complication including . Inpatient pharmacy was called and the determination was made to give the patient 1 g of Ancef preoperatively and this was done. She was taken to the operating room and placed on the operating room table. Anesthesia monitored her airway, head, neck and vital signs throughout the case. Once anesthesia was appropriately administered, the patient was placed into dorsolithotomy position and was prepped and draped in usual sterile fashion. At this time a cystoscope was inserted through the urethra under direct visualization into the urinary bladder. The right ureteral orifice was identified and gently intubated with a 0.035 Glidewire. A 7 Albanian 24 cm JJ stent was placed over the wire with good positioning in the renal pelvis as well as the urinary bladder. There was urine visualized coming from the stent. The patient's bladder was emptied and the cystoscope was removed. The patient was then awakened and taken to the recovery room in stable condition. There were no complications during this procedure. Grafts/Implants Used: 7 Albanian by 24 cm JJ stent Complications None Admit VTE Documentation VTE Present on Admission: Yes VTE Mechan Device Prophylaxis: SCD's
[2023-04-07 19:12] LABS: Lipase 83 U/L (13-75)
[2023-04-07 19:14] LABS: Differential Comment SCANNED
[2023-04-07 19:28] LABS: BNP,B-Type NATRIURETIC PEPTIDE 143.6 pg/mL (0-100)
--- NOTE | 2023-04-07 20:12 | RAD_ITS ---
INDICATION: chest pain EXAMINATION/TECHNIQUE: X-RAY - XR Chest 1 View COMPARISON: FINDINGS: LINES/DEVICES: None. LUNGS: No consolidation, edema or effusion. No pneumothorax. MEDIASTINUM AND CARDIOVASCULAR STRUCTURES: Cardiac silhouette not enlarged. Central airways and mediastinal contour are unremarkable. BONES AND SOFT TISSUES: Degenerative vertebral changes. RAD/Chest 1 View (Portable) IMPRESSION: No radiographic evidence of acute cardiopulmonary disease. Electronically Signed: Manuel Gardner DO at 20:31 EDT ,
[2023-04-07 20:15] LABS: Lactic Acid 0.6 mmol/L (0.4-1.9)
[2023-04-07 20:18] LABS: Troponin-I HS 72 pg/mL (3.0-54.0)
[2023-04-07 20:22] LABS: International Normalized Ratio 1.2; Prothrombin Time (Protime)PT. 15.1 SECONDS (11.7-14.9)
[2023-04-07] MEDS: Metoprolol Tartrate 25 MG Tablet 12.5 MG PO (21:36)
[2023-04-07] MEDS: Linezolid 600 MG 600 MG/300 ML BAG 200 MG IV (22:40)
[2023-04-08 01:28] VITALS: BP 142/68; PULSE 79; RESP 16; TEMP 35.8; O2SAT 98
[2023-04-08 03:30] VITALS: BP 125/60; PULSE 74; RESP 14; TEMP 36.7; O2SAT 99
[2023-04-08 06:45] LABS: Absolute Lymphocyte Count 0.86 X10^3/uL (0.83-4.51); Basophil# 0.02 X10^3/uL; Basophil% 0.3 % (0-1); Hemoglobin 7.7 g/dL (12.0-15.0); Lymphocyte # 0.86 X10^3/ul (0.83-4.51); Lymphocyte % 12.8 % (19-41); Mean Corp Hgb Conc 33.5 g/dL (32-36); Mean Corpuscular Hgb 28.6 pg (27.0-32.0); Mean Corpuscular Volume 85.5 fL (81-99); Mean Platelet Vol. 9.7 fl (6.2-12.0); Monocyte# 0.79 X10^3/uL; Monocyte% 11.8 % (0-10); NRBC Flagged by Analyzer 0 % (0-5); Neutrophil # 5.01 X10^3/uL (2.7-7.7); Neutrophil % 74.7 % (47-70); Platelet Count 302 K/mm3 (150-450); RBC Distribution Width CV 13.6 % (11.6-14.6); RBC Distribution Width SD 42.4 fl (35.1-43.9); Red Blood Count 2.69 M/mm3 (4.2-5.4); White Blood Count 6.7 K/mm3 (4.4-11.0)
[2023-04-08 07:14] VITALS: O2SAT 98
[2023-04-08 07:30] VITALS: BP 145/68; PULSE 86; RESP 16; TEMP 36.4; O2SAT 98
[2023-04-08 07:33] LABS: ALB/GLOB Ratio 0.6 RATIO (0.9-2.4); AST(SGOT) 9 U/L (15-37); Alanine Aminotransfer ALT/SGPT < 6 U/L (13-56); Albumin, Serum 2.5 g/dL (3.2-5.0); Alkaline Phosphatase 63 U/L (45-117); Anion Gap 15 (5-15); BUN 98 mg/dL (7-18); BUN/Creat Ratio 7.8 RATIO (10-20); Calcium,Total 8.9 mg/dL (8.5-10.1); Chloride 102 mmol/L (98-107); Cholesterol 200 mg/dL (200); EST Glomerular Filtration Rate 3 mL/min (>60); Est Glom Filt Rate - Afr Amer 4 mL/min (>60); Estimated Creatinine Clearance 3.41 ml/min; Globulin 3.9 g/dL (2.2-4.2); Glucose 86 mg/dL (74-106); High Density Lipoprotein 31 mg/dL; Magnesium 2.3 mg/dL (1.6-2.6); Potassium 5.5 mmol/L (3.5-5.1); Protein, Total 6.4 g/dL (6.4-8.2); Sodium Level 132 mmol/L (136-145); Triglycerides 184 mg/dL; Very Low Density Lipoprotein 37 mg/dL (5-40)
--- NOTE | 2023-04-08 08:52 | PCM.HOSP.N ---
Hospitalist Note Patient kidney function worsened despite stent placement. Spoke with urology this a.m. about needing nephrostomy tubes but given bleeding and worsening function would likely need a one-time dialysis to help her uremia. Nephrology was contacted and was agreeable to dialysis one-time in order to help her uremia so she could have nephrostomy tubes placed. Spoke with patient with nephrology at bedside and patient reiterated to both of us that she now wants no more procedures and wants nothing else done. Discussed CODE STATUS and patient initially said she did not want life support but then said she was not ready to make that decision to not be full code and she wanted to talk with her granddaughter. Also at this moment does not want to be hospice but these decisions are at odds with each other. Attempted call granddaughter but has not answered yet. We will try to call again of another discussion with patient regarding CODE STATUS. Yesterday seemed to have an easier time communicating without talent development specialist given her proficiency with [place]oc[place] and some confusion/difficulty interpreting when we used senior controls engineer however may need to attempt to use this again moving forward pending these conversations
--- NOTE | 2023-04-08 09:19 | PCM.PN.REN ---
Subjective Subjective unsuccessful PNT plaement last night by IR due to pain and bleeding. request to have temp dialysis to help with uremic bleeding for PNT placement but patient states she does not want anymore procedures due to back pain. Decline pain meds in the past in fear of dependency on it. Unable to lie prone for procedure due to pain/discomfort. Patient refusing hospice but knows she is going to without treatment. Discussed DNR status with the patient. Pt has living will and does not want life support. DW hospitalist and nursing staff at bedside; will need to change to DNR. Still with nausea, anorexia due to persistent renal failure. Objective Data Objective Data Vital Signs: Vital Signs Temp Pulse Resp BP Pulse Ox O2 Del Method O2 Flow Rate 97.6 F L 86 16 145/68 H 98 Room Air 2 04/08/23 07:30 04/08/23 07:30 04/08/23 07:30 04/08/23 07:30 04/08/23 07:30 04/08/23 07:30 04/07/23 18:15 Oxygen Flow Rate (L/min) 2 Oxygen Delivery Method [9] Room Air Oxygen Delivery Method [8] Room Air Oxygen Delivery Method [7] Room Air Oxygen Delivery Method [6] Room Air Oxygen Delivery Method [5] Room Air Oxygen Delivery Method [4] Room Air Oxygen Delivery Method [3] Room Air Oxygen Delivery Method [2] Room Air Oxygen Delivery Method [1 ( Room Air Initial Baseline)] Oxygen Delivery Method Room Air Weight: 78.4 kg Body Mass Index (BMI) 30.6 Intake & Output: Intake and Output for Last 24 Hours 04/06/23 04/07/23 04/08/23 23:59 23:59 23:59 Intake Total 342.5 / 392.5 1990.00 / 2230.00 840 / 840 Output Total 600 / 800 200 / 200 Balance 342.5 / 192.5 1390.00 / 1430.00 640 / 640 Lab / Micro Data Result Diagrams: 04/08/23 06:11 04/08/23 06:11 Labs: Laboratory Results - last 24 hr 04/07/23 17:40: Sodium 131 L, Potassium 5.0, Chloride 100, Carbon Dioxide 12.0 L, Anion Gap 19 H, BUN 93 H, Creatinine 12.00 H*, Estim Creat Clear Calc 3.56, Est GFR (MDRD) Af Amer 4 L, Est GFR (MDRD) Non-Af 3 L, BUN/Creatinine Ratio 7.8 L, Glucose 81, Calcium 8.9 04/07/23 17:40: Troponin I High Sens 66 H 04/07/23 17:40: Lipase 83 H 04/07/23 17:50: WBC 11.7 H, RBC 3.37 L, Hgb 9.5 L, Hct 29.2 L, MCV 86.6, MCH 28.2, MCHC 32.5, RDW Std Deviation 42.9, RDW Coeff of Sol 13.5, Plt Count 275, MPV 10.1, Immature Gran % (Auto) 0.600, Neut % (Auto) 87.5 H, Lymph % (Auto) 4.4 L, [place] % (Auto) 7.0, Eos % (Auto) 0.2, Baso % (Auto) 0.3, Absolute Neuts (auto) 10.2 H, Absolute Lymphs (auto) 0.52 L, Nucleated RBC % 0, Differential Comment SCANNED 04/07/23 17:50: B-Natriuretic Peptide 143.6 H 04/07/23 18:01: POC Glucose 74 04/07/23 19:40: PT 15.1 H, INR 1.2 04/07/23 19:40: Lactic Acid 0.6 04/07/23 19:40: Troponin I High Sens 72 H 04/08/23 06:11: WBC 6.7, RBC 2.69 L, Hgb 7.7 L, Hct 23.0 L, MCV 85.5, MCH 28.6, MCHC 33.5, RDW Std Deviation 42.4, RDW Coeff of Sol 13.6, Plt Count 302, MPV 9.7, Immature Gran % (Auto) 0.400, Neut % (Auto) 74.7 H, Lymph % (Auto) 12.8 L, [place] % (Auto) 11.8 H, Eos % (Auto) 0.0, Baso % (Auto) 0.3, Absolute Neuts (auto) 5.0, Absolute Lymphs (auto) 0.86, Nucleated RBC % 0 04/08/23 06:11: Sodium 132 L, Potassium 5.5 H, Chloride 102, Carbon Dioxide 15.0 L, Anion Gap 15, BUN 98 H, Creatinine 12.50 H*, Estim Creat Clear Calc 3.41, Est GFR (MDRD) Af Amer 4 L, Est GFR (MDRD) Non-Af 3 L, BUN/Creatinine Ratio 7.8 L, Glucose 86, Calcium 8.9, Magnesium 2.3, Total Bilirubin 0.40, AST 9 L, ALT < 6 L, Alkaline Phosphatase 63, Total Protein 6.4, Albumin 2.5 L, Globulin 3.9, Albumin/Globulin Ratio 0.6 L, Triglycerides 184, Cholesterol 200, LDL Cholesterol 132 H, VLDL Cholesterol 37, HDL Cholesterol 31 L Micro: Microbiology 04/07/23 01:40 Gastric Fluid/Contents Gastric Occult Blood - Final Occult Blood Positive 04/06/23 18:27 Urine, Clean Catch Urine Culture - Preliminary Culture exhibits no growth. Radiography Diagnostic Testing: Radiology Impression Limited or Localized CT 04/07/23 15:16 IMPRESSION: As above. Electronically Signed: Joel Shelby DO at 17:28 EDT , KUB X-Ray 04/07/23 18:50 IMPRESSION: No acute pathology of the abdomen and pelvis. Electronically Signed: Manuel Gardner DO at 20:33 EDT , Chest X-Ray 04/07/23 20:12 IMPRESSION: No radiographic evidence of acute cardiopulmonary disease. Electronically Signed: Manuel Gardner DO at 20:31 EDT , Physical Exam Const alert and oriented x3 Resp clear to auscultation bilaterally Cardio regular rate and no rub GI non-tender and non-distended Auscultation: normoactive bowel sounds Extremity no clubbing, cyanosis or edema Neuro Neuro Narrative: no tremor Sensorium / Orientation: awake and alert Assessment & Plan Assessment/Plan (1) Acute renal failure: PLAN: due to obstruction s/p ureteral stent. Creatinine remains elevated. Failed attempt for PNT placement by IR. Pt does not want anymore procedures. No dialysis, No nephrostomy tubes. Change to DNR. Pt does not want life support. Declines hospice at this time. She states she is ready to . DW patient with hospitalist, nursing staff at bedside (2) Hydronephrosis: PLAN: bilateral on CT with extrinsic compression. Failed attempt for PNT placement. 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
[2023-04-08 11:30] VITALS: BP 140/61; PULSE 81; RESP 16; TEMP 36.7; O2SAT 100
[2023-04-08] MEDS: Linezolid 600 MG 600 MG/300 ML BAG 200 MG IV (11:32)
[2023-04-08 11:35] VITALS: BP 140/61; PULSE 81
[2023-04-08] MEDS: Metoprolol Tartrate 25 MG Tablet 12.5 MG PO (11:35)
--- NOTE | 2023-04-08 13:34 | DCINST_ITS ---
Discharge Instructions Diet Discharge Diet: No restrictions Activity Discharge Activity: - (Return to normal activity as tolerated, you indicated use of walker at home, recommend using this for mobility) Follow Up Care Test Results: Test results from this visit will be discussed in further detail at your follow- up appointment, if applicable. Discharge Plan Admission Admit Date/Time: 04/06/23 21:11 Primary Reason for Your Visit: Nausea and vomiting Attending Provider: Candice Nance Primary Care Provider: Conner Nolan Consulting Providers: Ervin Jones ; Torey Chu ; Mine Hurley ; Sharon Potter Instructions Patient Instructions: Understanding DNR Orders Additional Instructions / Restrictions: You have indicated that you have do not wish to have any further procedures, life support, interventions and would like to remain comfortable. You also indicated that he did not want hospice referral or evaluation. This can be discussed with your primary care physician moving forward if you do decide on hospice care. You are offered pain medication but indicated that you have also did not want a prescription sent in for this. Would recommend against resuming her losartan and furosemide given your kidney function and given your present bleeding risk and desire to be comfortable over additional intervention would avoid Eliquis. Discharge Orders/Prescriptions Prescriptions: Held Eliquis 5 mg tablet 5 mg PO DAILY Hold Instructions: Resume on 04/15/23. Label Comments: TAKE 1 TABLET BY MOUTH TWICE DAILY Discontinued losartan 50 mg tablet 25 mg PO DAILY Label Comments: TAKE 1 TABLET BY MOUTH ONCE DAILY furosemide 20 mg tablet 20 mg PO QHS Label Comments: TAKE 1 TABLET BY MOUTH ONCE DAILY cephalexin [cephalexin] 500 mg capsule 500 mg PO Q12 3 Days Qty: 6 0RF Referrals / Follow Up: Conner Nolan MD [Primary Care Provider] - Disposition Disposition (needs filled in before D/C Order can be placed): Home, Self Care
--- NOTE | 2023-04-08 13:41 | DS.PCM_ITS ---
Providers Date of Admission: 04/06/23 Date of Discharge: 04/08/23 Primary Care Physician: Dr. Conner Marrero MD Consultations 04/06/23 22:11 Consult: Interventional Radiology Routine Consulting Provider: Torey Chu Reason for Consult: Evaluation for nephrostomy tube EMERGENT Consult: No Notified: Yes Date Notified: 04/06/23 Time Notified: 21:47 Method of Notification: auto Consult: Urology Routine Consulting Provider: Sharon Potter Reason for Consult: Bilateral hydronephrosis EMERGENT Consult: No Notified: Yes Date Notified: 04/06/23 Time Notified: 21:21 Method of Notification: ED Physician Initiated 04/07/23 08:25 Consult: Nephrology Routine Consulting Provider: Mine Hurley Reason for Consult: acute kidney failure EMERGENT Consult: No Notified: Yes Date Notified: 04/07/23 Time Notified: 09:49 Method of Notification: Text Reason For Visit: BILATERAL HYDRONEPHROSIS, HYPERTENSIVE URGENCY Diagnosis Discharge Diagnosis (1) Acute renal failure: Status: Acute Code(s): N17.9 - Acute kidney failure, unspecified (2) Hydronephrosis: Status: Acute Code(s): N13.30 - Unspecified hydronephrosis (3) Ovarian cancer: Status: Acute Code(s): C56.9 - Malignant neoplasm of unspecified ovary (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: Status: Chronic Code(s): C77.5 - Secondary and unspecified malignant neoplasm of intrapelvic lymph nodes (5) HTN (hypertension): Status: Chronic Code(s): I10 - Essential (primary) hypertension (6) Anemia: Status: Acute Code(s): D64.9 - Anemia, unspecified (7) Hyperkalemia: Status: Acute Code(s): E87.5 - Hyperkalemia (8) Uremia: Status: Acute Code(s): N19 - Unspecified kidney failure (9) Metabolic acidosis: Status: Acute Code(s): E87.20 - Acidosis, unspecified Plan #Acute renal failure on CKD stage IIIb/bilateral hydronephrosis and hydroureter secondary to external compression from likely adenopathy #Metastatic ovraian cancer #High anion gap metabolic acidosis #DVT #Hypertensive urgency #Anemia #elevated troponin #hyperkalemia Medications at Discharge Home Medications apixaban 5 mg tablet (Eliquis) 5 mg PO DAILY blood thinner 03/26/23 Hospital Course Procedures - (Attempted percutaneous nephrostomy tube, had ureteral stent placed) Summary of Care Provided Minutes Spent on Discharge: 65 Hospital Course: Ms. Pizano is a 72-year-old female with history of PE and DVT on Eliquis until recent left ureteral stent placement, metastatic ovarian cancer, hypertension, CKD stage IIIb with recent subacute escalation of creatinine, GERD who presented to [facility] 04/06/2023 with epigastric pain radiating through her abdomen and nausea and vomiting with several streaks of blood. The pain was burning when lying down made it worse and moving around to help the pain improved at that time. 4 days before presentation she had bilateral hydronephrosis and had left ureteral stent placed, due to not having any symptoms or pain on the right decision was to defer second stent placement at that time when patient went home in stable condition. When patient returned on 04/[address] which showed bilateral hydronephrosis and proximal hydroureter with a left stent in good position. She also had extrinsic compression leading to the hydronephrosis which likely represented adenopathy. Her creatinine was 12.3 with value 1 month before of 3.43 and 2.05 in January, she was also uremic w/ a BUN of 92. At the time also her anion gap was 18 with a bicarb of 14 and sodium of 126. No elevation in white blood cell count and liver function normal, troponin 21, lipase 65 and UA not suggestive of infection. She was hospitalized and IR and urology were consulted. Urology consulted and discussed options with patient, pt wanted to discuss with nephrology regarding if dialysis may be an option. That morning prior to any decisions, discussed extensively with patient regarding hospice versus further interventions and she was able to tell me her medical problems and her understanding of her cancer as well as what she is here for and she was alert and oriented and seem to be able to understand the risks and benefits of options, the time of exam I do feel she was capable of making medical decisions. Nephrology consulted and discussed with patient and they did not think that she was a good candidate for dialysis and recommended percutaneous nephrostomy tubes to which patient was agreeable. She went down for procedure but had a lot of pain in her back and became very hypertensive and also had a lot of bleeding with minimal incision likely due to her uremia so she was sent back to floor. It was felt the only way that would be safe to place the nephrostomy tubes would be under anesthesia and that would not be able to happen until the following day at least if it would be able to be coordinated. Discussed with urology and decision was made to take patient to the OR to attempt to stent right ureter in the interim. When I went to discuss plan with patient she reported mild epigastric pain/gas feeling that she had been having intermittently on admission, EKG with no changes. Dr. Potter came to speak with the patient as well and risks and benefits of proceeding with quick stent placement were discussed and given present symptoms due to worsening clinical status largely attributable to her kidney failure and decision was to take her to the OR for right ureteral stent placement/insertion with minimal anesthesia. She did have slightly elevated troponin of 66 but went to 77 with no further symptoms, troponin was within normal limits on admission when she had the same symptoms and suspect that it was not cardiac in nature. Did have slight increase in white blood cell count with left shift and it was unclear if this was reactive or true infection so she was started on broad-spectrum antibiotics. Spoke with urology this a.m. about needing nephrostomy tubes but given bleeding and worsening function would likely need a one-time dialysis to help her uremia.? Nephrology was contacted and was agreeable to dialysis one-time in order to help her uremia so she could have nephrostomy tubes placed.? Spoke with patient with nephrology at bedside and patient reiterated to both of us that she now wants no more procedures and wants nothing else done. Discussed with patient and her granddaughter and went over CODE STATUS, present problems and treatment options as well as prognosis and patient maintained clear and consistent choice that she wanted no further interventions and wanted to remain comfortable and go home. Reiterated that life expectancy if kidney functions worsen could even be a matter of days and she discussed quality of life and her metastatic cancer and her goals for the rest of her life and maintained her decision. See free text note for more details of conversation. Patient was able to get up and walk around her room and refused hospice and wanted to go home, she is able to get up and walk around the room and got dressed and gathered her things and called a friend to pick her up. She denied needing any medication for pain upon discharge and continued to maintain her current choice and stance. Patient discharged home. Of note on day of discharge urine was dark but she was able to produce some amount of urine. CODE STATUS DNR CC. CODE status:Discussed CODE status at length including difference between FULL co de, DNR-CCA, and DNR-CC status. Following discussions about the differences in these status, requested DNRCC. Advanced Care Planning Face to Face Time: 85 minutes. Physical Exam Narrative General: Alert, oriented, no apparent distress HEENT: Atraumatic, normocephalic Eyes: Anicteric, normal conjunctiva, extraocular movements grossly intact Neck: Supple Respiratory: Normal respiratory effort Cardiovascular: Regular rate and rhythm GI: Soft, not overtly distended, no significant tenderness on palpation, no rebound, guarding, rigidity Extremities: Does have bilateral lower extremity edema with some pitting Musculoskeletal: Moving all extremities Neuro: No overt focal neurological deficits Skin: No rashes appreciated Psych: Cooperative Weight / BMI Weight Weight: 78.4 kg Body Mass Index (BMI) 30.6 ABG / Lab / Microbiology Data Result Diagrams: 04/08/23 06:11 04/08/23 06:11 Laboratory: Laboratory Results - last 24 hr 04/07/23 17:40: Sodium 131 L, Potassium 5.0, Chloride 100, Carbon Dioxide 12.0 L , Anion Gap 19 H, BUN 93 H, Creatinine 12.00 H*, Estim Creat Clear Calc 3.56, Est GFR (MDRD) Af Amer 4 L, Est GFR (MDRD) Non-Af 3 L, BUN/Creatinine Ratio 7.8 L, Glucose 81, Calcium 8.9 04/07/23 17:40: Troponin I High Sens 66 H 04/07/23 17:40: Lipase 83 H 04/07/23 17:50: WBC 11.7 H, RBC 3.37 L, Hgb 9.5 L, Hct 29.2 L, MCV 86.6, MCH 28.2, MCHC 32.5, RDW Std Deviation 42.9, RDW Coeff of Sol 13.5, Plt Count 275, MPV 10.1, Immature Gran % (Auto) 0.600, Neut % (Auto) 87.5 H, Lymph % (Auto) 4.4 L, [place] % (Auto) 7.0, Eos % (Auto) 0.2, Baso % (Auto) 0.3, Absolute Neuts (auto) 10.2 H, Absolute Lymphs (auto) 0.52 L, Nucleated RBC % 0, Differential Comment SCANNED 04/07/23 17:50: B-Natriuretic Peptide 143.6 H 04/07/23 18:01: POC Glucose 74 04/07/23 19:40: PT 15.1 H, INR 1.2 04/07/23 19:40: Lactic Acid 0.6 04/07/23 19:40: Troponin I High Sens 72 H 04/08/23 06:11: WBC 6.7, RBC 2.69 L, Hgb 7.7 L, Hct 23.0 L, MCV 85.5, MCH 28.6, MCHC 33.5, RDW Std Deviation 42.4, RDW Coeff of Sol 13.6, Plt Count 302, MPV 9.7, Immature Gran % (Auto) 0.400, Neut % (Auto) 74.7 H, Lymph % (Auto) 12.8 L, [place] % (Auto) 11.8 H, Eos % (Auto) 0.0, Baso % (Auto) 0.3, Absolute Neuts (auto) 5.0, Absolute Lymphs (auto) 0.86, Nucleated RBC % 0 04/08/23 06:11: Sodium 132 L, Potassium 5.5 H, Chloride 102, Carbon Dioxide 15.0 L, Anion Gap 15, BUN 98 H, Creatinine 12.50 H*, Estim Creat Clear Calc 3.41, Est GFR (MDRD) Af Amer 4 L, Est GFR (MDRD) Non-Af 3 L, BUN/Creatinine Ratio 7.8 L, Glucose 86, Calcium 8.9, Magnesium 2.3, Total Bilirubin 0.40, AST 9 L, ALT < 6 L , Alkaline Phosphatase 63, Total Protein 6.4, Albumin 2.5 L, Globulin 3.9, Albumin/Globulin Ratio 0.6 L, Triglycerides 184, Cholesterol 200, LDL Cholesterol 132 H, VLDL Cholesterol 37, HDL Cholesterol 31 L Microbiology: Microbiology 04/06/23 18:27 Urine, Clean Catch Urine Culture - Final Gram negative sai 04/07/23 01:40 Gastric Fluid/Contents Gastric Occult Blood - Final Occult Blood Positive Radiography Diagnostic Testing: Radiology Impression Limited or Localized CT 04/07/23 15:16 IMPRESSION: As above. Electronically Signed: Joel Shelby at 17:28 EDT , KUB X-Ray 04/07/23 18:50 IMPRESSION: No acute pathology of the abdomen and pelvis. Electronically Signed: Manuel GardnerDO at 20:33 EDT , Echocardiogram 04/07/23 18:51 Interpretation Summary The left ventricular ejection fraction is 70 %. Diastolic function is indeterminate. Mild (1+) mitral valve insufficiency. Cannot rule out minimal prolapse of the anterior mitral valve leaflet. Right ventricular systolic pressure estimated to be 45 mmHg. Ordering Physician: Candice Nance Referring Physician: CONNER MARRERO Performed By: Imelda Suresh CHRISTIANO Chest X-Ray 04/07/23 20:12 IMPRESSION: No radiographic evidence of acute cardiopulmonary disease. Electronically Signed: Manuel DO Jj at 20:31 EDT , D/C Instructions Discharge Diet: No restrictions Meaningful Use Info Meaningful Use Diagnoses (Choose all that apply): None applicable Discharge Plan Admission Admit Date/Time: 04/06/23 21:11 Primary Reason for Your Visit: Nausea and vomiting Attending Provider: Candice Nance Primary Care Provider: Conner Marrero Consulting Providers: Ervin Jones ; Torey Chu ; Mine Hurley ; Sharon Potter Instructions Patient Instructions: Understanding DNR Orders Additional Instructions / Restrictions: You have indicated that you have do not wish to have any further procedures, life support, interventions and would like to remain comfortable. You also indicated that he did not want hospice referral or evaluation. This can be discussed with your primary care physician moving forward if you do decide on hospice care. You are offered pain medication but indicated that you have also did not want a prescription sent in for this. Would recommend against resuming her losartan and furosemide given your kidney function and given your present bleeding risk and desire to be comfortable over additional intervention would avoid Eliquis. Discharge Orders/Prescriptions Prescriptions: Held Eliquis 5 mg tablet 5 mg PO DAILY Hold Instructions: Resume on 04/15/23. Label Comments: TAKE 1 TABLET BY MOUTH TWICE DAILY Discontinued losartan 50 mg tablet 25 mg PO DAILY Label Comments: TAKE 1 TABLET BY MOUTH ONCE DAILY furosemide 20 mg tablet 20 mg PO QHS Label Comments: TAKE 1 TABLET BY MOUTH ONCE DAILY cephalexin [cephalexin] 500 mg capsule 500 mg PO Q12 3 Days Qty: 6 0RF Referrals / Follow Up: Conner Marrero MD [Primary Care Provider] - Disposition Disposition (needs filled in before D/C Order can be placed): Home, Self Care Charges/Coding Visit Charges Inpatient E&M: 77212 Disch Hosp >30min Procedures Hospitalists Procedures: 46627 Advncd Care Plan 30 Min Multi [facility] Hospitalists' Procedures Procedures: 23435 Advncd Care Plan addl 30 Min
--- NOTE | 2023-04-08 13:48 | PHA.DC.MR ---
Pharmacy Service has performed discharge medication reconciliation for this patient. The patient's discharge medication list was reviewed for discrepancies and discrepancies were resolved. Home Medications apixaban 5 mg tablet (Eliquis) 5 mg PO DAILY 03/26/23 - patient takes bid
--- NOTE | 2023-04-08 14:48 | CASEMGMT ---
Physician did talk with patient about Hospice and patient declined. SW met with patient. Introduced self and role at [facility]. SW asked patient if she would like a pamphlet on Hospice in case she changes her mind. Patient declined, but thanked SW for checking. Dinah Sommers MSW [facility]EL[facility]
== END 2023-04-08 15:06 | disposition home or self-care (01) | DRG 660 ==
LOC: ED 20:47 → PCU 21:27
PROVIDERS: Anesthesiology; Urology; Admitting Provider Hospitalist; Emergency Provider Emergency Medicine; PCP Family Medicine; Visit Provider Internal Medicine
PROC: 0T768DZ Dilation of Right Ureter with Intraluminal Device, Via Natural or Artificial Opening Endoscopic (ICD-10-PCS; principal; 2023-04-07 16:05)
DX: N13.1 Hydronephrosis with ureteral stricture, not elsewhere classified (principal); C77.5 Secondary and unspecified malignant neoplasm of intrapelvic lymph nodes; E87.20 Acidosis, unspecified; K92.0 Hematemesis; E87.1 Hypo-osmolality and hyponatremia; C56.9 Malignant neoplasm of unspecified ovary; N13.4 Hydroureter; N17.9 Acute kidney failure, unspecified; E11.22 Type 2 diabetes mellitus with diabetic chronic kidney disease; N18.32 Chronic kidney disease, stage 3b; D64.9 Anemia, unspecified; E78.00 Pure hypercholesterolemia, unspecified; I16.0 Hypertensive urgency; I12.9 Hypertensive chronic kidney disease with stage 1 through stage 4 chronic kidney disease, or unspecified chronic kidney disease; E87.5 Hyperkalemia; M54.9 Dorsalgia, unspecified; Z53.09 Procedure and treatment not carried out because of other contraindication; R77.8 Other specified abnormalities of plasma proteins; R07.9 Chest pain, unspecified; Z79.01 Long term (current) use of anticoagulants; G89.29 Other chronic pain; Z66 Do not resuscitate; Z87.891 Personal history of nicotine dependence; Z86.718 Personal history of other venous thrombosis and embolism; Z86.711 Personal history of pulmonary embolism; Z90.710 Acquired absence of both cervix and uterus
CPT/HCPCS: 36415; 71045; 74018; 74176; 76000; 76380; 80048; 80053; 80061; 80076; 81001; 82271; 82962; 83605; 83690; 83735; 83880; 84484; 85025; 85610; 87040; 87086; 87088; 93005; 93306; 93970; 99156; 99157; 99285; J2020; J7030; J7040; J7050; A4216; C1874; J2405; J3490

== ENCOUNTER → 2023-05-28 | Outpatient (CLI) | payer MEDICARE, SELFPAY ==
[2023-05-28 12:25] LABS: Absolute Neutrophil Count 3.5 X10^3/uL (2.0-7.7); Basophil# 0.06 X10^3/uL; Basophil% 0.9 % (0-1); Eosinophils% 4.4 % (0-5); Hematocrit 30.7 % (37-47); Hemoglobin 9.3 g/dL (12.0-15.0); Lymphocyte % 33.7 % (19-41); Mean Corp Hgb Conc 30.3 g/dL (32-36); Mean Corpuscular Hgb 28.9 pg (27.0-32.0); Mean Corpuscular Volume 95.3 fL (81-99); Mean Platelet Vol. 11.4 fl (6.2-12.0); Monocyte# 0.63 X10^3/uL; Monocyte% 9.2 % (0-10); NRBC Flagged by Analyzer 0 % (0-5); Neutrophil # 3.52 X10^3/uL (2.7-7.7); Neutrophil % 51.5 % (47-70); Platelet Count 276 K/mm3 (150-450); RBC Distribution Width CV 15.1 % (11.6-14.6); Red Blood Count 3.22 M/mm3 (4.2-5.4); White Blood Count 6.8 K/mm3 (4.4-11.0)
[2023-05-28 12:41] LABS: ALB/GLOB Ratio 0.6 RATIO (0.9-2.4); AST(SGOT) 16 U/L (15-37); Alanine Aminotransfer ALT/SGPT 9 U/L (13-56); Albumin, Serum 3.3 g/dL (3.2-5.0); Alkaline Phosphatase 93 U/L (45-117); Anion Gap 4 (5-15); BUN 28 mg/dL (7-18); BUN/Creat Ratio 9.3 RATIO (10-20); Calcium,Total 9.8 mg/dL (8.5-10.1); Chloride 110 mmol/L (98-107); EST Glomerular Filtration Rate 16 mL/min (>60); Est Glom Filt Rate - Afr Amer 20 mL/min (>60); Globulin 5.4 g/dL (2.2-4.2); Glucose 89 mg/dL (74-106); Potassium 4.3 mmol/L (3.5-5.1); Protein, Total 8.7 g/dL (6.4-8.2); Sodium Level 140 mmol/L (136-145)
== END | disposition home or self-care (01) ==
LOC: MFPLAB 10:13
PROVIDERS: PCP Family Medicine; Visit Provider Family Medicine
DX: C56.9 Malignant neoplasm of unspecified ovary (principal); E87.6 Hypokalemia
CPT/HCPCS: 36415; 80053; 85025

== ENCOUNTER 2023-07-02 05:43 | Day surgery (SDC) | payer MEDICARE, SELFPAY ==
[2023-07-02] MEDS: Lactated Ringers 1,000 ML 15 ML IV (06:33)
[2023-07-02 06:34] VITALS: BP 147/75; PULSE 70; RESP 18; TEMP 36.5; O2SAT 100; BMI 24.7
[2023-07-02 06:46] LABS: Bedside Glucose 67 mg/dL (74-106)
[2023-07-02] MEDS: Cefazolin 2 GM in 0.9% Normal Saline (100mL Bag) 100 ML IV (07:34)
--- NOTE | 2023-07-02 07:43 | DCINST_ITS ---
Discharge Instructions Diet Discharge Diet: No restrictions Activity Discharge Activity: Return to Normal Activity Dressing / Incision Call your doctor if you observe: Fever of 101 or Higher, Inability to urinate and Inability to have a bowel movement Follow Up Care Please Follow Up With: Sharon Potter MD When: the office will call with instructions Test Results: Test results from this visit will be discussed in further detail at your follow- up appointment, if applicable. Discharge Plan Admission Attending Provider: Sharon Potter Primary Care Provider: Conner Nolan Discharge Orders/Prescriptions Prescriptions: New cephalexin [cephalexin] 500 mg capsule 500 mg PO Q12 3 Days Qty: 6 0RF Continued losartan 50 mg tablet 50 mg PO DAILY Patient Comments: TAKE 1 TABLET BY MOUTH ONCE DAILY Referrals / Follow Up: Conner Nolan MD [Primary Care Provider] - Disposition Disposition (needs filled in before D/C Order can be placed): Home, Self Care
[2023-07-02 08:10] VITALS: BP 147/75; BP 158/62; PULSE 73; RESP 16; TEMP 37.2; O2SAT 97
[2023-07-02 08:15] VITALS: BP 147/75; BP 151/70; PULSE 70; RESP 18; O2SAT 100
[2023-07-02 08:20] VITALS: BP 147/75; BP 164/73; PULSE 73; RESP 18; O2SAT 100
[2023-07-02 08:25] VITALS: BP 147/75; BP 166/70; PULSE 74; RESP 18; TEMP 37.1; O2SAT 100
[2023-07-02 09:06] VITALS: BP 145/62; BP 147/75; PULSE 73; RESP 16; TEMP 36.4
--- NOTE | 2023-07-02 09:23 | PCM.OPRPT ---
Report of Operation Date of Procedure: 07/02/23 Pre-Operative Diagnosis: Bilateral ureteral obstruction, ovarian cancer Post-Operative Diagnosis: Same Surgery/Procedure Performed:: Cystoscopy, bilateral ureteral stent change Type of Anesthesia: MAC Specimen's removed: None Description of Procedure: The patient is a 72-year-old female with external compression of her ureter secondary to metastatic ovarian cancer. She has indwelling bilateral ureteral stents now presents for routine stent change. Informed consent was obtained. The patient was taken to the operating room and placed on the operating room table. Anesthesia monitored the head, neck, airway, IV access and vital signs throughout the case. Once anesthesia was appropriately administered, the patient was placed into dorsal lithotomy position and was prepped and draped in usual sterile fashion. The cystoscope was inserted through the urethra under direct visualization into the urinary bladder. Starting on the patient's right side the stent was observed, grasped with grasping forceps and pulled to the urethral meatus. At this point it was intubated with a 0.035 Glidewire which easily advanced all the way to the renal pelvis is seen on fluoroscopy. The stent was then removed and the wire was backloaded through the cystoscope. At this time, a new 7 [place] by 24 cm JJ stent was placed over the Glidewire and advanced into the renal pelvis with good positioning there as well as the urinary bladder. This process was repeated exactly on the patient's left side only using a larger caliber stent at 8.5 Bulgarian. At the conclusion of the case, the bladder was emptied and the cystoscope was removed. She was awakened and taken to the recovery room in good condition. There were no complications during this procedure. Grafts/Implants Used: 7 Bulgarian by 24 cm JJ stent on the right, 8.5 x 24 cm JJ stent on the left Complications None Admit VTE Documentation VTE Present on Admission: Yes VTE Mechan Device Prophylaxis: SCD's VTE Pharm Prophylaxis ordered?: No Reason prophylaxis not ordered:: Treatment Not Indicated
== END 2023-07-02 09:10 | disposition home or self-care (01) ==
LOC: SDC 05:45 → AC 05:46
PROVIDERS: PCP Family Medicine; Referring Provider Urology; Visit Provider Urology
PROC: (CPT 52332; principal; 2023-07-02 07:20)
DX: N13.5 Crossing vessel and stricture of ureter without hydronephrosis (principal); C56.9 Malignant neoplasm of unspecified ovary; E11.9 Type 2 diabetes mellitus without complications; I10 Essential (primary) hypertension; E78.00 Pure hypercholesterolemia, unspecified; K21.9 Gastro-esophageal reflux disease without esophagitis; R10.32 Left lower quadrant pain
CPT/HCPCS: 52332; 00910; 76000; 82962; J7120; C1874; C2617; J2405

== ENCOUNTER → 2023-09-24 | Outpatient (CLI) | payer MEDICARE, SELFPAY ==
[2023-09-24 12:25] LABS: Absolute Lymphocyte Count 2.23 X10^3/uL (0.83-4.51); Absolute Neutrophil Count 3.2 X10^3/uL (2.0-7.7); Basophil# 0.05 X10^3/uL; Basophil% 0.8 % (0-1); Eosinophil# 0.23 X10^3/uL; Eosinophils% 3.6 % (0-5); Hematocrit 34.5 % (37-47); Hemoglobin 10.4 g/dL (12.0-15.0); Lymphocyte # 2.23 X10^3/ul (0.83-4.51); Lymphocyte % 35.1 % (19-41); Mean Corp Hgb Conc 30.1 g/dL (32-36); Mean Corpuscular Hgb 28.1 pg (27.0-32.0); Mean Corpuscular Volume 93.2 fL (81-99); Mean Platelet Vol. 10.5 fl (6.2-12.0); Monocyte# 0.61 X10^3/uL; Monocyte% 9.6 % (0-10); NRBC Flagged by Analyzer 0 % (0-5); Neutrophil # 3.22 X10^3/uL (2.7-7.7); Neutrophil % 50.6 % (47-70); Platelet Count 289 K/mm3 (150-450); RBC Distribution Width CV 13.2 % (11.6-14.6); White Blood Count 6.4 K/mm3 (4.4-11.0)
[2023-09-24 13:18] LABS: ALB/GLOB Ratio 0.6 RATIO (0.9-2.4); AST(SGOT) 24 U/L (15-37); Alanine Aminotransfer ALT/SGPT 13 U/L (13-56); Albumin, Serum 3.3 g/dL (3.2-5.0); Alkaline Phosphatase 85 U/L (45-117); Anion Gap 7 (5-15); BUN 35 mg/dL (7-18); BUN/Creat Ratio 12.6 RATIO (10-20); Calcium,Total 9.6 mg/dL (8.5-10.1); Chloride 109 mmol/L (98-107); Creatinine, Serum 2.78 mg/dL (0.55-1.02); EST Glomerular Filtration Rate 18 mL/min (>60); Est Glom Filt Rate - Afr Amer 22 mL/min (>60); Globulin 5.4 g/dL (2.2-4.2); Glucose 70 mg/dL (74-106); Potassium 4.1 mmol/L (3.5-5.1); Protein, Total 8.7 g/dL (6.4-8.2); Sodium Level 139 mmol/L (136-145)
[2023-09-24 13:38] LABS: Hemoglobin A1c 5.5 % (3.8-5.6)
== END | disposition home or self-care (01) ==
LOC: MFPLAB 11:24
PROVIDERS: PCP Family Medicine; Visit Provider Family Medicine
DX: I10 Essential (primary) hypertension (principal); C56.9 Malignant neoplasm of unspecified ovary; E11.9 Type 2 diabetes mellitus without complications; D64.9 Anemia, unspecified
CPT/HCPCS: 36415; 80053; 83036; 85025; 86304

== ENCOUNTER 2023-10-01 06:38 | Day surgery (SDC) | payer MEDICARE, SELFPAY ==
[2023-10-01 07:22] VITALS: BP 155/62; PULSE 80; RESP 16; TEMP 36.6; O2SAT 100; BMI 23.8
[2023-10-01] MEDS: Lactated Ringers 1,000 ML 15 ML IV (07:44)
[2023-10-01] MEDS: Cefazolin 2 GM in 0.9% Normal Saline (100mL Bag) 100 ML IV (09:26)
[2023-10-01 09:59] VITALS: BP 144/64; BP 155/62; PULSE 81; RESP 18; TEMP 36.7; O2SAT 100
[2023-10-01 10:05] VITALS: BP 155/62; BP 157/69; PULSE 85; RESP 18; O2SAT 99
[2023-10-01 10:10] VITALS: BP 154/59; BP 155/62; PULSE 67; RESP 18; O2SAT 100
[2023-10-01 10:16] VITALS: BP 155/62; BP 164/77; PULSE 66; RESP 18; TEMP 36.7; O2SAT 100
--- NOTE | 2023-10-01 11:05 | DCINST_ITS ---
Discharge Instructions Diet Discharge Diet: No restrictions Activity Discharge Activity: Return to Normal Activity Dressing / Incision Call your doctor if you observe: Fever of 101 or Higher, Inability to urinate and Inability to have a bowel movement Follow Up Care Please Follow Up With: Sharon Potter MD When: the office will call her to make follow up arrangements Test Results: Test results from this visit will be discussed in further detail at your follow- up appointment, if applicable. Discharge Plan Admission Attending Provider: Sharon Potter Primary Care Provider: Conner Nolan Discharge Orders/Prescriptions Prescriptions: New oxycodone-acetaminophen [Percocet] 5-325 mg tablet 1 tab PO Q8H PRN (Reason: pain) 3 Days Qty: 10 0RF Continued losartan 50 mg tablet 50 mg PO DAILY Patient Comments: TAKE 1 TABLET BY MOUTH ONCE DAILY Liver-Kidney Cleanser Capsule 2 cap PO DAILY Referrals / Follow Up: Conner Nolan MD [Primary Care Provider] - Disposition Disposition (needs filled in before D/C Order can be placed): Home, Self Care
--- NOTE | 2023-10-01 11:08 | OP.PCM_ITS ---
Report of Operation Date of Procedure: 10/01/23 Pre-Operative Diagnosis: Bilateral ureteral obstruction secondary to metastatic ovarian cancer Post-Operative Diagnosis: Same Surgery/Procedure Performed:: Cystoscopy with bilateral ureteral stent change Surgeon: Sharon Potter Type of Anesthesia: MAC Description of Procedure: The patient is a 72-year-old female with metastatic ovarian cancer and bilateral ureteral obstruction who presents for routine ureteral stent change. Informed consent was obtained. The patient was taken the operating room and placed on the operating room table. Anesthesia monitored the head, neck, airway, IV access and vital signs throughout the case. Once anesthesia was appropriate ministered, the patient was placed into dorsolithotomy position was prepped and draped in usual sterile fashion. Cystoscope was inserted through the urethra under direct visualization into the urinary bladder. The left ureteral stent was observed grasped and pulled to the urethral meatus where it was loaded with an 0.035 Glidewire and then removed. The cystoscope was then used to place a brand-new 8.5 [place] 24 cm JJ stent over the wire with good positioning in the renal pelvis as well as the urinary bladder. This exact process was repeated on the patient's right side except that a 7 [place] 24 cm JJ stent was used. At this time the patient's bladder was emptied and the cystoscope was removed. The patient was awakened and taken to the recovery room in good condition. There were no complications during this procedure. Grafts/Implants Used: 7 [place] by 24 cm JJ stent on the right, 8.5 Fr by 24 cm JJ stent on left Complications none Admit VTE Documentation VTE Present on Admission: Yes VTE Mechan Device Prophylaxis: SCD's VTE Pharm Prophylaxis ordered?: No Reason prophylaxis not ordered:: Treatment Not Indicated
[2023-10-01 11:13] VITALS: BP 155/62
== END 2023-10-01 11:14 | disposition home or self-care (01) ==
LOC: SDC 06:39 → AC 06:39
PROVIDERS: PCP Family Medicine; Referring Provider Urology; Visit Provider Urology
PROC: (CPT 52332; principal; 2023-10-01 09:00)
DX: N13.5 Crossing vessel and stricture of ureter without hydronephrosis (principal); C77.2 Secondary and unspecified malignant neoplasm of intra-abdominal lymph nodes; C77.5 Secondary and unspecified malignant neoplasm of intrapelvic lymph nodes; C56.9 Malignant neoplasm of unspecified ovary; E11.9 Type 2 diabetes mellitus without complications; I10 Essential (primary) hypertension; E78.5 Hyperlipidemia, unspecified; K21.9 Gastro-esophageal reflux disease without esophagitis; Z79.899 Other long term (current) drug therapy; Z86.711 Personal history of pulmonary embolism; Z90.710 Acquired absence of both cervix and uterus
CPT/HCPCS: 52332; 00910; 76000; J7120; C1874; C2617; J2405

== ENCOUNTER 2023-12-27 18:39 | Inpatient (IN) | payer MEDICARE, SELFPAY ==
[2023-12-27 18:40] VITALS: BP 149/69; PULSE 101; RESP 18; TEMP 37; O2SAT 100
--- NOTE | 2023-12-27 19:10 | EKG12_ITS ---
Test Reason : DYSRHYTHMIA Blood Pressure : / mmHG Vent. Rate : 101 BPM Atrial Rate : 101 BPM P-R Int : 114 ms QRS Dur : 082 ms QT Int : 326 ms P-R-T Axes : 063 035 072 degrees QTc Int : 422 ms Sinus tachycardia Otherwise normal ECG Confirmed by Ernesto Badillo ([id number]), editor continuity and script ALIX BOYD ([id number]) on 12/29/2023 7:15:02 AM Referred By: Confirmed By:Ernesto Badillo
--- NOTE | 2023-12-27 19:10 | CT_ITS ---
STUDY: CT ABDOMEN AND PELVIS WITHOUT CONTRAST REASON FOR EXAM: Female, 73 years old. leg edema, H/O ovarian CA RADIATION DOSAGE (If Supplied By Facility): CTDIvol = ( 6.97 ) mGy, DLP = ( 335.93 ) mGycm TECHNIQUE: Transaxial images were obtained from the dome of the diaphragm to the symphysis pubis without oral contrast, and without intravenous contrast. Sagittal and coronal images were reconstructed. Individualized dose optimization techniques were used for this CT. COMPARISON: 07/25/2015 FINDINGS: The visualized lung bases are unremarkable. The visualized portions of the heart are within normal limits. Multiple subtle areas of decreased attenuation within the liver worrisome for metastatic disease and correlation with liver mass protocol CT is recommended. Normal gallbladder and extrahepatic biliary system. Normal spleen. Normal pancreas. Normal bilateral adrenal glands. Bilateral ureteral stents with severe bilateral hydronephrosis due to encasement of the proximal ureters by the retroperitoneal lymphadenopathy. Normal left kidney. Normal visualized stomach. Normal small intestine. Normal colon. The appendix is visualized and appears normal. Dilatation of the infrarenal abdominal aorta with maximal diameter of 2.8 cm. Normal inferior vena cava. Confluent retroperitoneal lymphadenopathy surrounding the abdominal aorta measuring 4 x 6 cm worrisome for metastatic lymphadenopathy. Suspect some pelvic sidewall lymphadenopathy as well. Normal urinary bladder. Edema in the subcutaneous fat suggestive of anasarca. Multiple sclerotic areas within the lumbar spine worrisome for blastic metastases. CT/Abdomen/Pelvis without Cont IMPRESSION: 1. Metastatic retroperitoneal lymphadenopathy encasing the abdominal aorta, inferior vena cava, and ureters with some metastatic pelvic sidewall lymphadenopathy is well. 2. Moderate bilateral hydronephrosis despite the presence of bilateral ureteral stents. 3. Dilatation infrarenal abdominal aorta with maximal diameter of 2.8 cm. 4. Suspect hepatic metastases. 5. Suspect blastic metastases of the lumbar spine. 6. Suspect anasarca. Electronically Signed: Leon Iyer MD at 21:00 EDT ,
--- NOTE | 2023-12-27 19:13 | EX.ED.DYSGE1 ---
HPI History of Present Illness Chief Complaint: Edema Informant: patient Onset/Context/Timing Onset: Days (3 days) Narrative Narrative: Patient complaining of left leg swelling and pain for the last 3 days. She reports difficulty ambulating because of her symptoms. She is a history of ovarian cancer with mets to the lymph nodes. She has a history of DVT and PE but states she stopped taking blood thinners in March of last year because they told her she would be within 1 month. Patient reports increased left leg pain and swelling over the past 3 days. No open wounds or weeping. She denies chest pain or shortness of breath. 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 Diabetes Former smoker GERD (gastroesophageal reflux disease) History of echocardiogram History of edema History of ovarian cancer History of pain when walking History of renal disease HTN (hypertension) Hypercholesterolemia Hyperlipidemia Loose, teeth Ovarian cancer Pruritus Pulmonary embolism Shortness of breath on exertion Syncope Ureteral obstruction Wears glasses Home Medications losartan 50 mg tablet 50 mg PO DAILY 06/25/23 [History Last Taken 07/02/23] Ca rvjx-kojzycigh-quve thistle capsule (Liver-Kidney Cleanser capsule) 2 cap PO DAILY 09/24/23 [History Last Taken Unknown] oxycodone-acetaminophen 5 mg-325 mg tablet (Percocet) 1 tab PO Q8H PRN pain 3 days #10 tabs 10/01/23 [Rx Last Taken Unknown] Allergy/AdvReac Type Severity Reaction Status Date / Time shellfish derived Allergy Severe Rash Verified 12/27/23 18:40 Family History Mother CVA (cerebral vascular accident) Brother Diabetes Surgical History History of colonoscopy History of total hysterectomy with bilateral salpingo-oophorectomy (BSO) Hx of cystoscopy Social History Smoking Status: Former smoker alcohol intake: never substance use type: does not use ROS ROS ED Constitutional Constitutional ED: Denies chills or fever(s) Eyes Eyes: Denies discharge from eye(s) ENT ENT ED: Denies discharge from eye(s), rhinorrhea or sore throat Cardiovascular Cardiovascular: Denies chest pain or palpitations Respiratory/Chest Respiratory/Chest: Denies cough or dyspnea Gastrointestinal Gastrointestinal: Denies abdominal pain, nausea or vomiting Genitourinary Genitourinary ED: Denies dysuria Musculoskeletal Musculoskeletal: Reports extremity pain; Denies back pain Integumentary Denies Abrasions or rash Neurologic Neurologic: Reports weakness; Denies headache(s) Psychiatric Psychiatric: Denies anxiety or depression Allergic/Immunologic Allergic/Immunologic ED: Denies lip swelling or urticaria EXAM Physical Exam Const Vital Signs: 12/27/23 18:40 12/27/23 19:18 12/27/23 19:18 Temperature 98.6 F 98.5 F Temperature Source Temporal Oral Pulse Rate 101 H 97 Respiratory Rate 18 17 Respiratory Effort Normal Blood Pressure 149/69 H 153/96 H Blood Pressure Mean 95 115 Pulse Ox 100 100 Oxygen Delivery Method Room Air Room Air Positive well nourished and well developed General Appearance ED: well developed HEENT Reports moist mucous membranes Eyes EOMs intact bilaterally Chest Wall inspection of chest normal and palpation of chest normal Resp normal respiratory effort and clear to auscultation bilaterally Cardio regular rate and regular rhythm GI GI Narrative: Abdomen soft with mild distention. No tenderness palpation. Extremity Extremity Narrative: 1+ edema right lower extremity. 3+ edema left lower extremity. No erythema or evidence of infection. Mild diffuse tenderness throughout the calf and thigh. Neuro oriented x3 Psych mental status grossly normal Skin no rashes or lesions noted MDM MDM MDM Narrative Medical decision making narrative: IV line initiated. Labwork obtained to evaluate for leukocytosis, anemia, and electrolyte derangement. CT scan of the abdomen and pelvis obtained as I am concerned about cancerous mass impeding venous blood flow from her legs. She presents on a Thursday evening when I do not have vascular ultrasound available to perform a DVT study. History & Record Review Discussion w/independent historian: Patient and Friend Additional record(s) reviewed:: Prior labs Lab Data Attestation: I reviewed the patient's lab results. Labs: Laboratory Results - last 24 hr 12/27/23 19:15 WBC 11.6 H RBC 3.61 L Hgb 10.4 L Hct 33.3 L MCV 92.2 MCH 28.8 MCHC 31.2 L RDW Std Deviation 47.1 H RDW Coeff of Sol 13.8 Plt Count 281 MPV 10.9 Immature Gran % (Auto) 0.500 Neut % (Auto) 76.1 H Lymph % (Auto) 12.1 L [place] % (Auto) 10.5 H Eos % (Auto) 0.2 Baso % (Auto) 0.6 Absolute Neuts (auto) 8.8 H Absolute Lymphs (auto) 1.40 Nucleated RBC % 0 Sodium 139 Potassium 3.8 Chloride 105 Carbon Dioxide 24.0 Anion Gap 10 BUN 28 H Creatinine 2.44 H Estim Creat Clear Calc 17.24 Est GFR (MDRD) Af Amer 25 L Est GFR (MDRD) Non-Af 21 L BUN/Creatinine Ratio 11.5 Glucose 117 H Calcium 9.8 Total Bilirubin 0.80 Direct Bilirubin 0.21 AST 17 ALT 10 L Alkaline Phosphatase 91 B-Natriuretic Peptide 65.5 Total Protein 9.0 H Albumin 3.3 Globulin 5.7 H Radiography Diagnostic Testing: Clinical Impression(s) from Imaging Studies Abdomen/Pelvis CT 12/27/23 19:10 IMPRESSION: 1. Metastatic retroperitoneal lymphadenopathy encasing the abdominal aorta, inferior vena cava, and ureters with some metastatic pelvic sidewall lymphadenopathy is well. 2. Moderate bilateral hydronephrosis despite the presence of bilateral ureteral stents. 3. Dilatation infrarenal abdominal aorta with maximal diameter of 2.8 cm. 4. Suspect hepatic metastases. 5. Suspect blastic metastases of the lumbar spine. 6. Suspect anasarca. Electronically Signed: Leon Iyer MD at 21:00 EDT , EKG Initial EKG: Attestation: I personally reviewed and interpreted this EKG as follows: Interpretation: Sinus Tachycardia (Sinus tach at 101 with no acute ischemia.) Treatment and Re-Evaluation :: CBC reveals a white count of 11.6 with 76% neutrophils. Hemoglobin is 10.4. Chemistry studies significant for BUN of 28 creatinine 2.44. This is consistent with her recent prior values. Glucose is 117. LFTs are unremarkable. I initially ordered CT scan with IV contrast hoping to determine if there is anything pressing on the venous blood return from the left leg. Unfortunately her GFR is not adequate to support IV contrast. Noncontrast CT is obtained. Patient has evidence of extensive metastatic lesions. I do not see obvious tumor at the left groin that would impede blood flow. I do have significant concern for DVT in the left lower extremity. She is having difficulty ambulating and caring for herself with her leg pain and swelling. I will speak with hospitalist for observation overnight and ultrasound of the leg tomorrow. I will cover her with a dose of Lovenox at this time. Discharge Plan Triage Chief Complaint: Edema ED Provider: Kusum Matthews Dx/Rx/DC Orders Clinical Impression: Leg pain, left, Ovarian cancer, Edema of left lower leg, Difficulty in walking Prescriptions: No Action losartan 50 mg tablet 50 mg PO DAILY Patient Comments: TAKE 1 TABLET BY MOUTH ONCE DAILY Liver-Kidney Cleanser Capsule 2 cap PO DAILY oxycodone-acetaminophen [Percocet] 5-325 mg tablet 1 tab PO Q8H PRN (Reason: pain) 3 Days Qty: 10 0RF Primary Care Provider: Conner Nolan Referrals: Conner Nolan MD [Primary Care Provider] - Disposition Disposition: Acute Care Hospital [facility]
[2023-12-27] MEDS: fentaNYL 100 MCG/2 ML Ampul 12.5 MCG IV (19:16)
[2023-12-27 19:18] VITALS: BP 153/96; PULSE 97; RESP 17; TEMP 36.9; O2SAT 100; BMI 24.0
--- OUTSIDE RECORDS SUMMARY | 2023-12-27 19:35 | XMS RPT_ITS | CCD ---
Author Name Unknown Address [address] [place] [address] Organization [facility] Care Team Providers Care Director Of Psychology Name Role Phone SUJATA ZAMORANO DO Admitting Unavailable SUJATA ZAMORANO DO Attending Unavailable SUJATA ZAMORANO DO Primary Care Unavailable SUJATA ZAMORANO DO Admitting Unavailable JAUN, SUJATA NATHAN Attending Unavailable SUJATA ZAMORANO DO Primary Care Unavailable XANDER CARUSO MD Consulting Unavailable PROVIDER, UNKNOWN Consulting Unavailable IRLANDA WATTS Admitting Unavailable MAC, IRLANDA BERG Attending Unavailable IRLANDA WATTS Primary Care Unavailable XANDER MARRERO Consulting Unavailable PROVIDER, UNKNOWN Consulting Unavailable DANYA LONGORIA, MAYURI Attending Unavailalfred CARUSO MD., SUZY Primary Care Unavailable XANDER LOVE DO Admitting Unavailable MAC NATHAN, DR FOURNIER Attending Unavailable CAROLIN DAMON MD Consulting Unavailable MARLA LONGORIA, JESUS Consulting Unavailable ANNMARIE SYED DO Consulting Unavail able SOFIA LONGORIA, KASH Consulting Unavailable DANYA LONGORIA, MAYURI Consulting Unavailalfred ALEXANDER MD, DR DAWN Consulting Unavailable JJ LONGORIA, DR LEI Consulting Unavailab le Results Test Name Value Interpretation Reference Range Facil ity Encounters Encounter Date Encounter Type Care Provider Facility Start: 12-12-2022 End: 12-13-2022 ambulatory MAYURI HAGAN MD Facility:A Start: 12-08-2022 End: 12-08-2022 ambulatory IRLANDA WATTS [facility] Start: 12-02-2022 End: 12-06-2022 Evaluation and management of inpatient SUZY CARUSO MD. Facility:A Start: 12-01-2022 End: 12-02-2022 Emergency department patient visit SUJATA AUGUSTE [facility] Start: 05-07-2022 End: 05-07-2022 Emergency department patient visit SUJATA AUGUSTE [facility] Procedures Date Procedure Procedure Detail Performing Clinician Start: 12-02-2022 Urinalysis SUJATA Jansen Payers Date Payer Category Payer Medicare [id number] 2022 Medicare [id number] 1950 Unknown [id number] 1950 Unknown [id number] 1950 Unknown [id number] [id number] 1950 Unknown [id number] [id number] 1950 Unknown [id number] [id number] Clinical Note 12-14-2022 Note Date & Type Note Facility 12-14-2022 Note ORIGINAL PROCEDURE: 1. CT guided core biopsy, left retroperitoneum PIPE INSTALLER: Dr. Alexander RESIDENTIAL TREATMENT STAFF: None MATERIALS: 18G core biopsy device ANESTHESIA: Moderate sedation was administered and monitored by dedicated nursing personnel. Dosages recorded separately. SEDATION TIME (min): 27 ACCESS SITE: Left flank CORES (#): 9 TOUCHPREP: No DLP (mGy-cm): 789 CT fluoro (sec): 13 The procedure, risks, limitations, and alternatives were discussed. All questions answered. Written informed consent obtained. Procedure was performed using a cap, sterile gloves, a sterile sheet or towels, hand hygiene and hospital approved cutaneous antisepsis. Time out performed. Initial CT images demonstrate matted adenopathy in the retroperitoneum. Skin access site was marked then prepped and draped sterilely. After administering local anesthesia, the coaxial guide needle was advanced to the lesion under CT guidance. Core samples were obtained from the lesion and submitted to pathology and/or microbiology. [place] were removed. Sterile dressing placed. Post procedure images demonstrate no evidence of hemorrhage in the area of biopsy. COMPLICATIONS: None EBL: Minimal CONDITION: Stable, unchanged. TECHNIQUE: This exam was performed according to our departmental dose-optimization program which includes automated exposure control, adjustment of the mA and/or kVp according to patient size and/or use of iterative reconstruction technique where applicable. COMPARISON: None HISTORY: ORDERING SYSTEM PROVIDED HISTORY: Reason for Exam: hx ovarian cancer with periaortic IMPRESSION: 1. Successful CT guided core biopsy. Interpreted by: Brittney Alexander MD Preliminary Report By: Brittney Alexander MD Electronically signed By Brittney Alexander MD Dictated Date: 12/14/2022 12:34:01 AM Prelim Date: 12/14/2022 12:36:39 AM Sign Date: 12/14/2022 12:36:39 AM Ordering Provider: DAMIEN MURRAY [facility] ([place]) Summary Purpose Family History No Family History Records FoundNo Family History Records Found Advance Directives No Advanced Directives Records FoundNo Advanced Directives Records Found Additional Source Comments INFORMATION SOURCE (unrecogn ized section and content) DATE CREATED AUTHOR AUTHOR'S ORGANIZ ATION 12/20/2022 [facility] ([place]) FOR RECORDS PERTAINING TO PATIENTS WHO ARE OR HAVE BEEN ENROLLED IN A CHEMICAL DEPENDENCY/SUBSTANCEABUSE PROGRAM, SOME INFORMATION MAY BE OMITTED. This clinical summary was aggregated from multiple sources. Caution should be exercised in using it in the provision of clinical care. This summary normalizes information from multiple sources, and as a consequence, information in this document may materially change the coding, format and clinical context of patient data. In addition, data may be omitted in some cases. CLINICAL DECISIONS SHOULD BE BASED ON THE PRIMARY CLINICAL RECORDS. [employer] [facility]. provides no warranty or guarantee of the accuracy or completeness of information in this document.
[2023-12-27 19:41] LABS: AST(SGOT) 17 U/L (15-37); Alanine Aminotransfer ALT/SGPT 10 U/L (13-56); Albumin, Serum 3.3 g/dL (3.2-5.0); Alkaline Phosphatase 91 U/L (45-117); Anion Gap 10 (5-15); BUN 28 mg/dL (7-18); BUN/Creat Ratio 11.5 RATIO (10-20); Bilirubin, Direct 0.21 mg/dL (0.00-0.30); Calcium,Total 9.8 mg/dL (8.5-10.1); Chloride 105 mmol/L (98-107); Creatinine, Serum 2.44 mg/dL (0.55-1.02); EST Glomerular Filtration Rate 21 mL/min (>60); Est Glom Filt Rate - Afr Amer 25 mL/min (>60); Estimated Creatinine Clearance 17.24 ml/min; Globulin 5.7 g/dL (2.2-4.2); Glucose 117 mg/dL (74-106); Potassium 3.8 mmol/L (3.5-5.1); Sodium Level 139 mmol/L (136-145)
[2023-12-27 19:47] LABS: Absolute Neutrophil Count 8.8 X10^3/uL (2.0-7.7); Basophil# 0.07 X10^3/uL; Basophil% 0.6 % (0-1); Eosinophil# 0.02 X10^3/uL; Eosinophils% 0.2 % (0-5); Hematocrit 33.3 % (37-47); Hemoglobin 10.4 g/dL (12.0-15.0); Lymphocyte % 12.1 % (19-41); Mean Corp Hgb Conc 31.2 g/dL (32-36); Mean Corpuscular Hgb 28.8 pg (27.0-32.0); Mean Corpuscular Volume 92.2 fL (81-99); Mean Platelet Vol. 10.9 fl (6.2-12.0); Monocyte# 1.22 X10^3/uL; Monocyte% 10.5 % (0-10); NRBC Flagged by Analyzer 0 % (0-5); Neutrophil # 8.82 X10^3/uL (2.7-7.7); Neutrophil % 76.1 % (47-70); Platelet Count 281 K/mm3 (150-450); RBC Distribution Width CV 13.8 % (11.6-14.6); RBC Distribution Width SD 47.1 fl (35.1-43.9); Red Blood Count 3.61 M/mm3 (4.2-5.4); White Blood Count 11.6 K/mm3 (4.4-11.0)
[2023-12-27 20:14] LABS: BNP,B-Type NATRIURETIC PEPTIDE 65.5 pg/mL (0-100)
[2023-12-27 21:00] VITALS: BP 156/77; PULSE 98; RESP 24; O2SAT 95
--- NOTE | 2023-12-27 21:42 | PCM.HP.STD ---
HPI - General General Date of Admission: 12/27/23 Date of Service: 12/27/23 Chief Complaint: LLE pain, edema, difficulty ambulating and caring for self. HPI Narrative The patient is a 73 y/o F w/ PMHx: Aortic aneurysm, Metastatic ovarian carcinoma, Diabetes mellitus type II, Former tobacco use, HTN, HLD, GERD, Hx VTE (DVT, PE), CKD stage IV who presents to the [facility] ED on 12/27/23 with history of worsening swelling to the left leg with pain for the last 3 days with difficulty ambulating with history of DVT and PE however she stopped taking her blood thinners in March of last year secondary to poor prognosis and has been told that she likely would pass within the month but given current presentation with notable pain and swelling prompted ED evaluation. Workup in the ED included T98.5, heart rate 97, BP 153/96, respiratory rate 17, under percent on room air, CBC with WC 11.6, wound 10.4, MCV 92.2, platelet 281 with left shift, CMP with BUN/creatinine 28/2.44, glucose 117, BNP 65.5, CT abdomen and pelvis with metastatic retroperitoneal lymphadenopathy encasing the abdominal aorta, inferior vena cava and ureters with some metastatic pelvic sidewall lymphadenopathy as well, moderate bilateral hydronephrosis despite the presence of bilateral ureteral stents, dilatation of the infrarenal abdominal aorta with a maximal dimension of 2.8 cm, suspected hepatic metastases, suspected blastic metastases of the lumbar spine, suspected anasarca related with metastatic disease. In the ED patient ministered Lovenox 60 mg subcu x 1 and fentanyl 12.5 mcg IV x 1. [facility] Medical History Aortic aneurysm 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 Diabetes Former smoker GERD (gastroesophageal reflux disease) History of echocardiogram History of edema History of ovarian cancer History of pain when walking History of renal disease HTN (hypertension) Hypercholesterolemia Hyperlipidemia Loose, teeth Ovarian cancer Pruritus Pulmonary embolism Shortness of breath on exertion Syncope Ureteral obstruction Wears glasses Home Medications losartan 50 mg tablet 50 mg PO DAILY 06/25/23 [History Last Taken 07/02/23] Ca jimc-jihgoxzji-msjd thistle capsule (Liver-Kidney Cleanser capsule) 2 cap PO DAILY 09/24/23 [History Last Taken Unknown] oxycodone-acetaminophen 5 mg-325 mg tablet (Percocet) 1 tab PO Q8H PRN pain 3 days #10 tabs 10/01/23 [Rx Last Taken Unknown] Allergy/AdvReac Type Severity Reaction Status Date / Time shellfish derived Allergy Severe Rash Verified 12/27/23 18:40 Family History Mother CVA (cerebral vascular accident) Brother Diabetes Surgical History History of colonoscopy History of total hysterectomy with bilateral salpingo-oophorectomy (BSO) Hx of cystoscopy Social History (Updated 12/27/23 @ 22:[address] Agustina Smith MD) household members: none Smoking Status: Former smoker alcohol intake: never substance use type: does not use ROS ROS Narrative Admission Review of Systems: CONSTITUTIONAL: No weight loss, fever, chills, + weakness or fatigue. HEENT: Eyes: No visual loss, blurred vision, double vision or yellow sclerae. Ears, Nose, Throat: No hearing loss, sneezing, congestion, runny nose or sore throat. SKIN: No rash or itching, lesions, wounds. CARDIOVASCULAR: + Significant edema. No chest pain, chest pressure or chest discomfort, palpitations, orthopnea, syncopal events. RESPIRATORY: No shortness of breath, cough or sputum, wheezing, hemoptysis. GASTROINTESTINAL: No anorexia, nausea, vomiting or diarrhea, abdominal pain, melena, BRBPR. GENITOURINARY: No dysuria, frequency, urgency or retention. NEUROLOGICAL: No headache, dizziness, syncope, paralysis, ataxia, numbness or tingling in the extremities, focal weakness, change in bowel or bladder control, seizure. MUSCULOSKELETAL: + muscle, back pain, joint pain or stiffness. HEMATOLOGIC: + Chronic anemia, easy bleeding/bruising. LYMPHATICS: No enlarged nodes. No history of splenectomy. PSYCHIATRIC: No history of depression or anxiety. ENDOCRINOLOGIC: No reports of sweating, cold or heat intolerance. No polyuria or polydipsia. ALLERGIES: No history of asthma, hives, eczema or rhinitis. Vital Signs Vital Signs Vital Signs: 12/27/23 18:40 12/27/23 19:18 12/27/23 19:18 Temperature 98.6 F 98.5 F Temperature Source Temporal Oral Pulse Rate 101 H 97 Respiratory Rate 18 17 Respiratory Effort Normal Blood Pressure 149/69 H 153/96 H Blood Pressure Mean 95 115 Pulse Ox 100 100 Oxygen Delivery Method Room Air Room Air Weight Weight: 136 lb 0.403 oz Body Mass Index (BMI) 24.0 Physical Exam Narrative Physical Examination: General: Awake, alert, oriented x 3 and cooperative, seated upright in the ED bed, notes discomfort to the left lower extremity, rates it 2-3 out of 10 in severity. Skin: Normal color, normal turgor, no icterus, no cyanosis except for occasional staged ecchymoses, bilateral lower extremity venous stasis skin changes. HEENT: AT/NC, EOMI, PERRLA, MMM, no carotid bruits or JVD noted. Lungs: Diminished, greater bases, mildly increased respiratory rate but no distress, no rales, ronchi or wheezing. Heart: Mildly tachycardic with regular rhythm; no gallop, rub audible. Abdomen: Soft, NTTP despite significant diffuse metastatic disease on imaging, ND, mildly hyperactive BS, no appreciated HSM. Extremities: No cyanosis, no clubbing, significant pedal to proximal lower extremity edema, significantly more so left lower extremity with 3+ pitting edema. Neurological: Patient awake, alert, oriented as noted, cognitive function intact; pupils equally reactive to light and accommodation, cranial nerves grossly normal, moving all 4 extremities although limited especially left lower extremity given acute presentation, strength moderately to severely globally decreased. Psychiatric: Affect appears mildly fatigued otherwise normal, no acute evidence of depressive or anxiety feelings. Results Lab / Micro Data 12/27/23 19:15 12/27/23 19:15 Labs: Laboratory Results - last 24 hr 12/27/23 19:15: WBC 11.6 H, RBC 3.61 L, Hgb 10.4 L, Hct 33.3 L, MCV 92.2, MCH 28.8, MCHC 31.2 L, RDW Std Deviation 47.1 H, RDW Coeff of Sol 13.8, Plt Count 281, MPV 10.9, Immature Gran % (Auto) 0.500, Neut % (Auto) 76.1 H, Lymph % (Auto) 12.1 L, [place] % (Auto) 10.5 H, Eos % (Auto) 0.2, Baso % (Auto) 0.6, Absolute Neuts (auto) 8.8 H, Absolute Lymphs (auto) 1.40, Nucleated RBC % 0, Sodium 139, Potassium 3.8, Chloride 105, Carbon Dioxide 24.0, Anion Gap 10, BUN 28 H, Creatinine 2.44 H, Estim Creat Clear Calc 17.24, Est GFR (MDRD) Af Amer 25 L, Est GFR (MDRD) Non-Af 21 L, BUN/Creatinine Ratio 11.5, Glucose 117 H, Calcium 9.8, Total Bilirubin 0.80, Direct Bilirubin 0.21, AST 17, ALT 10 L, Alkaline Phosphatase 91, B-Natriuretic Peptide 65.5, Total Protein 9.0 H, Albumin 3.3, Globulin 5.7 H Imaging Radiology Impression Abdomen/Pelvis CT 12/27/23 19:10 IMPRESSION: 1. Metastatic retroperitoneal lymphadenopathy encasing the abdominal aorta, inferior vena cava, and ureters with some metastatic pelvic sidewall lymphadenopathy is well. 2. Moderate bilateral hydronephrosis despite the presence of bilateral ureteral stents. 3. Dilatation infrarenal abdominal aorta with maximal diameter of 2.8 cm. 4. Suspect hepatic metastases. 5. Suspect blastic metastases of the lumbar spine. 6. Suspect anasarca. Electronically Signed: Leon Iyer MD at 21:00 EDT , Assessment & Plan Assessment/Plan (1) Edema of left lower leg: (2) Leg pain, left: PLAN: Plan The patient is a 73 y/o F w/ PMHx: Aortic aneurysm, Metastatic ovarian carcinoma, Diabetes mellitus type II, Former tobacco use, HTN, HLD, GERD, Hx VTE (DVT, PE), CKD stage IV who presents to the [facility] ED on 12/27/23 with history of worsening swelling to the left leg with pain for the last 3 days with difficulty ambulating with history of DVT and PE however she stopped taking her blood thinners in March of last year secondary to poor prognosis and has been told that she likely would pass within the month but given current presentation with notable pain and swelling prompted ED evaluation. #1. Debility, Elevated Fall risk with Adult FTT secondary to LLE Edema, Pain with history of VTE not on anticoagulation complicated by #2 and untreated diagnoses as noted below: Will admit to [facility], requested DVT US LLE, maintain on fall precautions, administered therapeutic Lovenox dose x 1 in the ED with plan transition at next dose due per lengthy discussion with patient per her preference specifically NOAC secondary to concerns for follow-up and appropriate level, will have as needed pain regimen, as needed antiemetic regimen, PT/OT/case management consulted for discharge planning. #2. 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 Quiroz and underwent adjuvant chemotherapy. She then declined oncological care given her poor prognosis. CT abdomen and pelvis with metastatic retroperitoneal lymphadenopathy encasing the abdominal aorta, inferior vena cava and ureters with some metastatic pelvic sidewall lymphadenopathy as well, moderate bilateral hydronephrosis despite the presence of bilateral ureteral stents, dilatation of the infrarenal abdominal aorta with a maximal dimension of 2.8 cm, suspected hepatic metastases, suspected blastic metastases of the lumbar spine, suspected anasarca related with metastatic disease. Will consult palliative/hospice to assist with patient care. #3. Moderate bilateral hydronephrosis: CT abdomen and pelvis with moderate bilateral hydronephrosis despite the presence of bilateral ureteral stents, planned upcoming replacement per urology Dr. Potter, encourage continued follow-up as previously arranged to have this performed. #4. Aortic aneurysm: CT abdomen and pelvis with dilatation of the infrarenal abdominal aorta with a maximal dimension of 2.8 cm, continue to trend outpatient. #5. Diabetes mellitus type II: As patient had been told that likely to pass she discontinued all of her medications, not currently on any diabetic regimen, in the interim will maintain on ADA diet with Accu-Chek with insulin sliding scale. #6. Hypertension: Clarifying home regimen as she had taken herself off of everything given poor prognosis with metastatic disease, in the interim will maintain on PRN hydralazine. #7. Hyperlipidemia: Defer especially given current status. #8. Diabetes mellitus type II: Hold oral home regimen, continue home insulin regimen, ADA diet, accu checks w/ ISS. #9. Chronic normocytic anemia: Admission hemoglobin 10.4, MCV 92.2, baseline hemoglobin most recently 09/24/2020 310.4, stable, continue to trend. #10. Chronic Kidney Disease Stage IV, although prior labs have been consistent with stage V thus uncertain exact stage but currently GFR 21 and prior to this 18: Admission BUN/Cr 28/2.44, baseline renal function most recently 2.7-3 although has vacillated, repeat BMP in AM. #11. Former tobacco use: Encourage continued tobacco cessation. #12. GERD: We will have Mylanta as needed. #13. DVT prophylaxis: Given renal function will place on a NOAC until DVT ultrasound obtained. Administered therapeutic Lovenox dose x 1 in the ED. #14. CODE status: Patient RADHA is Sharon Deluca her friend. Discussed CODE status at length including difference between FULL code, DNR-CCA and DNR-CC status. Following discussions about the differences in these status, requested DNR-CCA, no intubation, also no marked aggressive interventions although she still is amenable to medical treatment and therapies. Advanced Care Planning Face to Face Time: 16 minutes. Charges/Coding Visit Charges Inpatient E&M: 97070 Init Hosp L2 Procedures Hospitalists Procedures: 15606 Advncd Care Plan 30 Min
[2023-12-27] MEDS: Enoxaparin 60 MG/0.6 ML Syringe SC (21:57)
--- NOTE | 2023-12-27 22:04 | VDLE_ITS ---
Reason For Study: LLE Pain RIGHT LEFT CFV is compressible, spontaneous, phasic, GSV is normal. competent and demonstrates normal CFV is compressible, spontaneous, phasic, augmentation. competent, and demonstrates normal Procedure augmentation. This is a venous duplex using B-mode, color FV is compressible, spontaneous, phasic, flow and spectral Doppler. competent and demonstrates normal Exam performed portable in ICU/CCU. augmentation. The exam was diagnostic. POP V is compressible, spontaneous, phasic, A preliminary report was called and/or faxed competent and demonstrates normal to ICU optical lathe operator. augmentation. T/P Trunk is compressible. PTV is compressible. LT PerV is compressible. Non Vascularized Anechoic area noted in LT Pop Fossa measuring approximately 5.23cm x 1.01cm. VL/Venous Duplex US, Unilateral Interpretation Summary There is no evidence of left lower extremity deep vein thrombosis. Left great s aphenous vein appears patent and compressible segmentally. Left popliteal fossa 5.23 x 1.01 cm nonvas cularHypoechoic structure consistent with a Spears's cyst. Clinical correlation would be appropr iate. Normal flow patterns right common femoral vein Ordering Physician: Agustina Smith Performed By: Benjamin Gonzalez RVT
[2023-12-27 22:12] VITALS: BP 158/76; PULSE 98; RESP 21; TEMP 36.8; O2SAT 99
--- OUTSIDE RECORDS SUMMARY | 2023-12-27 22:12 | XMS RPT_ITS | CCD ---
Author Name Unknown Address [address] [place] [address] Organization [facility] Care Team Providers Care Certified [place] Administrator Name Role Phone SUJATA ZAMORANO DO Admitting [...] Start: 12-08-2022 End: 12-08-2022 ambulatory IRLANDA WATTS [facility] Start: 12-02-2022 End: 12-06-2022 Evaluation and management of inpatient SUZY CARUSO MD. Facility:A Start: 12-01-2022 End: 12-02-2022 Emergency department patient visit SUJATA AUGUSTE [facility] Start: 05-07-2022 End: 05-07-2022 Emergency department patient visit SUJATA AUGUSTE [facility] Procedures Date Procedure Procedure Detail Performing Clinician Start: 12-02-2022 Urinalysis SUJATA Jansen Payers Date Payer Category Payer Medicare [id number] 2022 Medicare [id number] 1950 Unknown [id number] 1950 Unknown [id number] [id number] 1950 Unknown [id number] [id number] [id number] 1950 Unknown [id number] [id number] 1950 Unknown [id number] [id number] Clinical Note 12-14-2022 Note Date & Type Note Facility 12-14-2022 Note ORIGINAL PROCEDURE: 1. CT guided core biopsy, left retroperitoneum MOUNTING MACHINE OPERATOR: Dr. Alexander [employer]ATHER GOODS MAKER: None MATERIALS: 18G core biopsy device ANESTHESIA: [...] lesion and submitted to pathology and/or microbiology. Luck were removed. Sterile dressing placed. Post procedure [...] 12/14/2022 12:36:39 AM Ordering Provider: DAMIEN MURRAY [facility] ([place]) Summary Purpose Family History No Family History Records FoundNo Family History Records Found Advance Directives No Advanced Directives Records FoundNo Advanced Directives Records Found Additional Source Comments INFORMATION SOURCE (unrecogn ized section and content) DATE CREATED AUTHOR AUTHOR'S ORGANIZ ATION 12/20/2022 [facility] ([place]) FOR RECORDS PERTAINING TO PATIENTS WHO ARE [...] BE BASED ON THE PRIMARY CLINICAL RECORDS. [facility]. provides no warranty or guarantee of the accuracy or completeness of information in this document.
[2023-12-27 22:28] VITALS: BMI 25.0
[2023-12-27 22:30] LABS: Magnesium 2.1 mg/dL (1.6-2.6); Phosphorus 3.4 mg/dL (2.5-4.9)
[2023-12-27 22:48] VITALS: BP 152/81; PULSE 66; RESP 20; TEMP 37.5; O2SAT 100
[2023-12-27] MEDS: Morphine 2 MG/ML Syringe IV (22:53)
[2023-12-27] MEDS: 0.9% Saline Lock 10 ML Syringe IV (22:54)
[2023-12-28] VITALS (7 sets, daily range): BP systolic 128–146; BP diastolic 51–67; PULSE 80–103; RESP 15–20; TEMP 36.6–37.4; O2SAT 100; BMI 24.9
[2023-12-28] MEDS: oxyCODONE 5 MG Tablet PO ×2 (03:23→20:06)
[2023-12-28 03:35] LABS: Absolute Lymphocyte Count 1.85 X10^3/uL (0.83-4.51); Absolute Neutrophil Count 7.8 X10^3/uL (2.0-7.7); Basophil# 0.05 X10^3/uL; Basophil% 0.4 % (0-1); Eosinophil# 0.01 X10^3/uL; Eosinophils% 0.1 % (0-5); Lymphocyte # 1.85 X10^3/ul (0.83-4.51); Lymphocyte % 16.4 % (19-41); Mean Corpuscular Hgb 28.2 pg (27.0-32.0); Mean Corpuscular Volume 90.9 fL (81-99); Mean Platelet Vol. 10.1 fl (6.2-12.0); Monocyte# 1.59 X10^3/uL; Monocyte% 14.1 % (0-10); NRBC Flagged by Analyzer 0 % (0-5); Neutrophil # 7.76 X10^3/uL (2.7-7.7); Neutrophil % 68.6 % (47-70); POSITIVE DIFFERENTIAL YES; Platelet Count 241 K/mm3 (150-450); RBC Distribution Width CV 13.6 % (11.6-14.6); RBC Distribution Width SD 45.2 fl (35.1-43.9); Red Blood Count 3.19 M/mm3 (4.2-5.4); White Blood Count 11.3 K/mm3 (4.4-11.0)
[2023-12-28 03:43] LABS: Differential Indicated SCAN CRITERIA MET
[2023-12-28 03:52] LABS: ALB/GLOB Ratio 0.6 RATIO (0.9-2.4); AST(SGOT) 18 U/L (15-37); Alanine Aminotransfer ALT/SGPT 9 U/L (13-56); Albumin, Serum 2.8 g/dL (3.2-5.0); Alkaline Phosphatase 73 U/L (45-117); Anion Gap 7 (5-15); BUN 30 mg/dL (7-18); BUN/Creat Ratio 12.7 RATIO (10-20); Calcium,Total 9.2 mg/dL (8.5-10.1); Chloride 108 mmol/L (98-107); Creatinine, Serum 2.36 mg/dL (0.55-1.02); EST Glomerular Filtration Rate 22 mL/min (>60); Est Glom Filt Rate - Afr Amer 26 mL/min (>60); Estimated Creatinine Clearance 19.39 ml/min; Glucose 99 mg/dL (74-106); Protein, Total 7.8 g/dL (6.4-8.2); Sodium Level 138 mmol/L (136-145)
[2023-12-28 04:43] LABS: Differential Comment SCANNED
--- NOTE | 2023-12-28 07:37 | PCM.PN.HOSP ---
Reason for Visit Reason for Visit: Left lower extremity pain and edema/difficulty ambulating/failure to thrive Subjective Subjective Ms Pizano is a 73-year-old female who presented to the emergency department at [facility] on 12/27/2023 due to left lower extremity pain and edema, difficulty ambulating, and difficulty caring for herself. She has a medical history of metastatic ovarian carcinoma which was diagnosed in March 2023. She had a history of DVT and PE however she stopped taking her blood thinners in March due to being told she had a poor prognosis. For about 3 days prior to presentation she had difficulty ambulating and caring for herself at home so elected to come in for evaluation. Vital signs on presentation were unremarkable. CBC is overall unremarkable. CMP shows a BUN of 28 and a serum creatinine of 2.44 with a known history of CKD stage IV. CT of the abdomen pelvis was performed and showed metastatic retroperitoneal lymphadenopathy encasing the abdominal aorta, inferior vena cava, and ureters along with some metastatic pelvic sidewall lymphadenopathy, moderate bilateral hydronephrosis despite presence of bilateral ureteral stents, dilation of the infrarenal abdominal aorta with a maximum dimension of 2.8 cm, suspected hepatic metastasis, suspected blastic metastasis in the lumbar spine, suspected anasarca with metastatic disease. Emergency department she was given Lovenox 60 mg subcu x 1 dose and placed on fentanyl 12.5 mg IV x 1 dose. She was admitted to the hospital. Bilateral lower extremity Dopplers are pending. If clot is identified DOAC is preferential per discussion with the patient prior to admission. Hospice and palliative care were consulted as well. Will consult urology if hospice is not pursued as she does have significant hydronephrosis despite stent placement on CT. Patient states currently she is feeling okay. Still complains of some leg pain we discussed as needed medication available. She also complains that intermittently she has some left-sided lower abdominal pain but she takes a laxative and bowel movement seems to help this pain. It sounds like she has intermittent constipation. May be related to metastatic disease. Awaiting palliative care/hospice consultation with discussion about goals of care regarding discharge planning. Patient just indicates she does not want to suffer and wants to peacefully like her previous 's did. Objective Data Objective Data Vital Signs: Vital Signs Temp Pulse Resp BP Pulse Ox O2 Del Method 99.3 F H 84 20 H 135/61 H 100 Room Air 12/28/23 03:00 12/28/23 03:00 12/28/23 03:00 12/28/23 03:00 12/28/23 03:00 12/28/23 03:00 Oxygen Delivery Method Room Air Weight: 63.82 kg Body Mass Index (BMI) 24.9 Lab / Micro Data 12/28/23 03:27 12/28/23 03:27 Labs: Laboratory Results - last 24 hr 12/27/23 19:15: WBC 11.6 H, RBC 3.61 L, Hgb 10.4 L, Hct 33.3 L, MCV 92.2, MCH 28.8, MCHC 31.2 L, RDW Std Deviation 47.1 H, RDW Coeff of Sol 13.8, Plt Count 281, MPV 10.9, Immature Gran % (Auto) 0.500, Neut % (Auto) 76.1 H, Lymph % (Auto) 12.1 L, [place] % (Auto) 10.5 H, Eos % (Auto) 0.2, Baso % (Auto) 0.6, Absolute Neuts (auto) 8.8 H, Absolute Lymphs (auto) 1.40, Nucleated RBC % 0, Sodium 139, Potassium 3.8, Chloride 105, Carbon Dioxide 24.0, Anion Gap 10, BUN 28 H, Creatinine 2.44 H, Estim Creat Clear Calc 17.24, Est GFR (MDRD) Af Amer 25 L, Est GFR (MDRD) Non-Af 21 L, BUN/Creatinine Ratio 11.5, Glucose 117 H, Calcium 9.8, Phosphorus 3.4, Magnesium 2.1, Total Bilirubin 0.80, Direct Bilirubin 0.21, AST 17, ALT 10 L, Alkaline Phosphatase 91, B-Natriuretic Peptide 65.5, Total Protein 9.0 H, Albumin 3.3, Globulin 5.7 H 12/28/23 03:27: WBC 11.3 H, RBC 3.19 L, Hgb 9.0 L, Hct 29.0 L, MCV 90.9, MCH 28.2, MCHC 31.0 L, RDW Std Deviation 45.2 H, RDW Coeff of Sol 13.6, Plt Count 241, MPV 10.1, Immature Gran % (Auto) 0.400, Neut % (Auto) 68.6, Lymph % (Auto) 16.4 L, [place] % (Auto) 14.1 H, Eos % (Auto) 0.1, Baso % (Auto) 0.4, Absolute Neuts (auto) 7.8 H, Absolute Lymphs (auto) 1.85, Nucleated RBC % 0, Differential Comment SCANNED, Sodium 138, Potassium 4.0, Chloride 108 H, Carbon Dioxide 23.0, Anion Gap 7, BUN 30 H, Creatinine 2.36 H, Estim Creat Clear Calc 19.39, Est GFR (MDRD) Af Amer 26 L, Est GFR (MDRD) Non-Af 22 L, BUN/Creatinine Ratio 12.7, Glucose 99, Calcium 9.2, Total Bilirubin 0.70, AST 18, ALT 9 L, Alkaline Phosphatase 73, Total Protein 7.8, Albumin 2.8 L, Globulin 5.0 H, Albumin/Globulin Ratio 0.6 L Radiography Diagnostic Testing: Radiology Impression Abdomen/Pelvis CT 12/27/23 19:10 IMPRESSION: 1. Metastatic retroperitoneal lymphadenopathy encasing the abdominal aorta, inferior vena cava, and ureters with some metastatic pelvic sidewall lymphadenopathy is well. 2. Moderate bilateral hydronephrosis despite the presence of bilateral ureteral stents. 3. Dilatation infrarenal abdominal aorta with maximal diameter of 2.8 cm. 4. Suspect hepatic metastases. 5. Suspect blastic metastases of the lumbar spine. 6. Suspect anasarca. Electronically Signed: Leon Iyer MD at 21:00 EDT Reading Location ID and State: [facility] / [place] Tel , Service support , Physical Exam Const alert, oriented x3 and no apparent distress; Negative for healthy appearing or well nourished Constitutional Narrative: Thin, , older, female, sitting up in bed, appears comfortable and nontoxic, watching television HEENT head/scalp atraumatic and moist oral mucous membranes HEENT Narrative: Mallampati is 2, no thrush Head and Scalp: normocephalic Resp normal respiratory effort, no retractions, no use of accessory muscles and clear to auscultation bilaterally Auscultation: Negative for rales, rhonchi or wheezes Cardio regular rate, regular rhythm, S1 normal heart sound, S2 normal heart sound, no rub, no gallops and no clicks; Negative for no murmurs Cardio Narrative: 2 out of 6 systolic murmur GI normal to inspection, nondistended, normoactive bowel sounds, soft to palpation and non-tender GI Narrative: Mild hepatomegaly noted Extremity Extremity Narrative: Bilateral lower extremity edema left greater than right, no clubbing or cyanosis Neuro oriented x3, moves all extremities and no focal motor deficits Neuro Narrative: Significant generalized weakness noted proximal greater than distal and lower extremities more affected than upper extremities Speech: speech normal Psych affect normal Psych Narrative: Eye contact is good, patient interacts appropriately Assessment & Plan Assessment/Plan (1) Difficulty in walking: (2) Edema of left lower leg: (3) Leg pain, left: PLAN: Plan Lower extremity edema -Patient has history of VTE but not on any anticoagulation -Lower extremity Dopplers pending -Patient was given Lovenox x 1 dose in the emergency department last evening -Continue apixaban for now -As needed pain medication Debility/adult failure to thrive -Likely related to her metastatic ovarian cancer and the above -PT/OT consultation -Case management/social work consultation pending for help with discharge planning Metastatic ovarian carcinoma -High-grade poorly differentiated serous cystadenocarcinoma with metastatic disease to the lymph nodes, liver, bone, and abdominal wall -Underwent ex lap with total abdominal hysterectomy, bilateral salpingo-oophorectomy with Dr. Quiroz in November 2009 and then underwent adjuvant chemotherapy -Further treatment declined due to poor prognosis -Hospice/palliative care consult pending Moderate bilateral hydronephrosis -Follows with Dr. Potter -Has bilateral stents in place -Hydronephrosis currently is despite bilateral stent placement -Will wait to see how hospice consult goes and if patient declines hospice will have urology evaluate the patient for stent replacement AAA -CT of the abdomen pelvis shows infrarenal abdominal aortic aneurysm at 2.8 cm -No acute needs and patient is likely not surgical candidate due to the above DM-2 -Patient is not on any medications and blood sugars are not markedly elevated -No diet restriction -Last hemoglobin A1c was done on 09/24/2023 and was 5.5. Leukocytosis -Etiology is unclear -No acute infection identified -May be acute phase reactant and elevation is mild -Continue to monitor Chronic normocytic anemia secondary to chronic disease -Hemoglobin 7 stable -Continue to monitor Hypertension/hyperlipidemia -As needed hydralazine available -Patient has not been on any chronic medication due to poor overall prognosis CKD stage IV -Bilateral hydronephrosis identified -Will have urology evaluate the patient if she elects not to proceed with hospice -Creatinine is stable GERD -As needed Mylanta available History of tobacco abuse -Encourage ongoing cessation DVT prophylaxis -Patient is on full dose apixaban and will discontinue if ultrasound CODE STATUS -DNR CCA with no intubation per discussion on admission Charges/Coding Visit Charges Inpatient E&M: 88800 Subs Hosp L2
[2023-12-28 08:51] LABS: Bedside Glucose 71 mg/dL (74-106)
--- NOTE | 2023-12-28 10:14 | CASEMGMT ---
Addendum entered by Madai Mina 12/28/23 11:08: Social Work Neighbor/MICHAEL Amadory tried to email the paperwork, she was not able to do so, she will have the multiple cut off saw operator's office fax it over. [facility] called, they will be here about 1130am. SW let pt's RN know to let pt know. SW will continue to follow. CAM Whitmore Original Note: Social Work SW informed that there is a hospice referral for pt. As per chart Sharon Deluca is POA. SW reviewed chart and an old POA for healthcare form is on the chart listing her step granddaughter is POA. Pt is alert and oriented, SW spoke w/pt initially about POA. She states she did change it from her step granddaughter to her neighbor Sharon, Sharon has the papers and pt is okay w/SW calling her to ask her for the papers. SW spoke w/pt about hospice referral. Pt is uncertain if she wants hospice but is willing to speak w/them. She states does not need her POA present for the meeting. Pt agreeable to referral to [facility]. SW called [facility], faxed referral, they are to call to let SW know when they are coming. SW called pt's neighbor/MICHAEL Sharon. She states will try to email SW the POA papers, she does confirm she is healthcare POA. She states pt is not able to read or write. She states she gets an idea in her head and there is no convincing her of anything else. She states pt cannot walk and neighbor cannot care for her at home. SW did let her know hospice is meeting w/pt, and we will need to see what would be appropriate for discharge plan. As per neighbor, pt has no money but also does not qualify for Medicaid. SW explained we will look into this if needed. SW will continue to follow, awaiting a call back from hospice for meeting time. CAM Whitmore
[2023-12-28 12:11] LABS: Bedside Glucose 101 mg/dL (74-106)
--- NOTE | 2023-12-28 12:20 | CASEMGMT ---
Social Work Pt declined hospice. SW let physician and CM know. CAM Whitmore
--- NOTE | 2023-12-28 13:24 | CASEMGMT ---
Discharge Planning A list of?SNF providers including quality and resource use data and consistent with the patient's preferred geographic region, medical needs, and insurance network was created in [employer] Guide.? This list was provided to the RN DIOMEDES. Jami Feliciano, Discharge Planning Asst.
--- NOTE | 2023-12-28 13:33 | CASEMGMT ---
KATIE HERCULES Assessment Face to Face with patient for initial transition planning/care coordination assessment. KATIE HERCULES introduced self and role at [facility], pt voices understanding. Pt is A&Ox4 and is resting comfortably in the chair and is calm. Care providers, pharmacy, and demographics verified. Admitting dx: Suspected LLE DVT, Adult FTT, Metastatic Ovarian Ca LACE Strata: 2 PCP: Conner Nolan Specialists: Abbey (Uro) Preferred Pharmacy: [facility] Insurance: [employer] Prescription Benefit: Yes LNOK: Sharon Deluca (Friend/ Neighbor/ POA), Urszula Kee (Friend) Living Arrangements: Pt lives alone in a mobile home with 2 steps to enter with hand railing. ADLs/IADLs: States normally independent Transportation: Self, Sharon, or Urszula DME: Pt states that she has a working BGM at home and enough supplies to check her blood sugar. Pt states she has a cane but does not use. Pt states that she has a walker and has been using that more recently. Pt also reports that she has a BP cuff. Pt states that she has a shower seat. Pt denies all other DME uses or needs. HHC/SNF: Denies history. Pt denies both of these options after DC at time of assessment. Pt?s goal: Pt goal is to return to PLOF and return home with no additional needs. Pt states that her friends are great resources at home. Pt appears adamant about returning home at this time. Plan: TBD. 6 Click is 10. Hospice was consulted and saw the pt and the pt refused their services. Pt states that she wants to DC home. Pt refuses HH and OP therapy at this time. PT/OT evals are pending. Pt educated that we will see how the pt does with therapy to see what the pt qualifies for. Pt is agreeable to this plan. Lore Peoples RN, CM
[2023-12-28 15:05] LABS: Hemoglobin A1c 5.1 % (3.8-5.6)
--- NOTE | 2023-12-28 16:11 | CASEMGMT ---
Addendum entered by Madai Mina 12/28/23 17:14: Social Work The commercial real estate attorney's office did fax over LW/POA forms, pt's neighbor Sharon is listed as healthcare POA. CAM Whitmore Original Note: Social Work SW spoke w/pt again about discharge plan. Pt states will go home. SW inquired how she will manage at home if she is needing an assist of two people. Pt states she managed before and she will manage again. SW inquired who would help her, she states her neighbor. SW reminded pt that her neighbor Sharon is not able to help her. Pt states her neighbor Ariel Dowell can help her. SW inquired how she will get food, pt states she will be able to do it, just sits to cook. SW inquired how she would physically even get home, pt states her neighbor will take her home. SW reminded pt that as per Sharon, it was very difficult to get pt here in a car. Pt states it took four people. SW again asked pt how she will manage at home, pt continues to just say she will manage, has done it before and will do it again. SW will follow up again w/pt tomorrow. CAM Whitmore
[2023-12-28 16:46] LABS: Bedside Glucose 89 mg/dL (74-106)
[2023-12-28 21:37] LABS: Bedside Glucose 144 mg/dL (74-106)
[2023-12-29 02:00] VITALS: BP 142/65; PULSE 100; RESP 15; TEMP 37.1; O2SAT 99
[2023-12-29 02:41] VITALS: BMI 25.4
[2023-12-29 03:43] LABS: Absolute Lymphocyte Count 1.27 X10^3/uL (0.83-4.51); Absolute Neutrophil Count 6.2 X10^3/uL (2.0-7.7); Basophil# 0.04 X10^3/uL; Basophil% 0.4 % (0-1); Eosinophil# 0.05 X10^3/uL; Eosinophils% 0.6 % (0-5); Hemoglobin 8.4 g/dL (12.0-15.0); Lymphocyte # 1.27 X10^3/ul (0.83-4.51); Lymphocyte % 14.3 % (19-41); Mean Corp Hgb Conc 32.3 g/dL (32-36); Mean Corpuscular Hgb 29.5 pg (27.0-32.0); Mean Corpuscular Volume 91.2 fL (81-99); Mean Platelet Vol. 10.3 fl (6.2-12.0); Monocyte# 1.28 X10^3/uL; Monocyte% 14.4 % (0-10); NRBC Flagged by Analyzer 0 % (0-5); Neutrophil # 6.24 X10^3/uL (2.7-7.7); Platelet Count 230 K/mm3 (150-450); RBC Distribution Width CV 13.5 % (11.6-14.6); RBC Distribution Width SD 45.4 fl (35.1-43.9); Red Blood Count 2.85 M/mm3 (4.2-5.4); White Blood Count 8.9 K/mm3 (4.4-11.0)
[2023-12-29 04:12] LABS: ALB/GLOB Ratio 0.5 RATIO (0.9-2.4); AST(SGOT) 21 U/L (15-37); Alanine Aminotransfer ALT/SGPT 9 U/L (13-56); Albumin, Serum 2.5 g/dL (3.2-5.0); Alkaline Phosphatase 80 U/L (45-117); Anion Gap 7 (5-15); BUN 37 mg/dL (7-18); BUN/Creat Ratio 14.2 RATIO (10-20); Chloride 107 mmol/L (98-107); EST Glomerular Filtration Rate 19 mL/min (>60); Est Glom Filt Rate - Afr Amer 23 mL/min (>60); Estimated Creatinine Clearance 17.74 ml/min; Globulin 4.9 g/dL (2.2-4.2); Glucose 113 mg/dL (74-106); Magnesium 1.9 mg/dL (1.6-2.6); Phosphorus 3.3 mg/dL (2.5-4.9); Protein, Total 7.4 g/dL (6.4-8.2); Sodium Level 136 mmol/L (136-145)
--- NOTE | 2023-12-29 07:11 | MRI_ITS ---
STUDY: MRI LUMBAR SPINE WITHOUT CONTRAST REASON FOR EXAM: Female, 73 years old. metastatic ovarian disease, BACK PAIN TECHNIQUE: Standardized fat and water weighted pulse sequences were obtained in the sagittal and axial planes. COMPARISON: CT of the pelvis December 27, 2023 FINDINGS: There is low signal noted within the vertebral bodies at all levels on all pulse weighted imaging sequences with most severe involvement of L4 and L5 consistent with sclerotic metastasis. T12-L1: Normal endplates. Normal disc height, desiccation and normal morphology. Normal bilateral facet joints. Normal central canal and bilateral lateral recesses. Normal bilateral intervertebral neural foramina. Normal lumbar lordosis. There is no substantial scoliosis. Normal conus medullaris that terminates at L1 L1-2: Normal endplates. Narrowed disc height, desiccation and small central disc protrusion.. Normal bilateral facet joints. Mild narrowing of the central canal. Normal bilateral lateral recesses. Normal bilateral intervertebral neural foramina. L2-3: Anterior endplate spurring. Normal disc height, hydration and morphology. Normal bilateral facet joints. Normal central canal and bilateral lateral recesses. Normal bilateral intervertebral neural foramina. L3-4: Anterior endplate spurring and chronic wedging of the L3 vertebral body in association with Schmorl''s node deformity of the superior endplate of L3 Normal disc height, desiccation and minimal annular bulge.. Bilateral facet arthropathy.. Normal central canal and bilateral lateral recesses. Moderate bilateral neural foraminal encroachment exaggerated by shortened pedicles L4-5: Normal endplates. Normal disc height, desiccation and minimal annular bulge.. Bilateral facet arthropathy. Normal central canal and bilateral lateral recesses. Minor bilateral neural foraminal encroachment. L5-S1: Grade 1 spondylolisthesis and spondylolysis. Normal endplates. Normal disc height, minimal bulging disc osteophyte complex.. Mild facet arthropathy. Normal central canal and bilateral lateral recesses. Moderate bilateral neural foraminal encroachment exaggerated by shortened pedicles Normal visualized sacral ala. Incidental findings include multiple bilateral cysts as well as bilateral renal obstruction There is also extensive retroperitoneal lymphadenopathy encasing the aorta. There is also aneurysmal dilatation of the distal aorta Normal visualized paraspinous soft tissue structures. MRI/Spine Lumbar (Routine) IMPRESSION: Diffuse disseminated sclerotic metastasis involving all the lumbar vertebral bodies as well as extensive retroperitoneal adenopathy encasing the aorta which demonstrates distal aneurysmal dilatation. There is also bilateral renal obstruction There is multilevel spinal stenosis most severe at L3-4 secondary to bulging annulus facet arthropathy and exaggerated by shortened pedicles No definitive evidence for epidural extension of tumor which may be further assessed with contrast-enhanced study if clinically warranted Electronically Signed: Darius Valencia MD at 16:21 EDT ,
--- NOTE | 2023-12-29 08:01 | PCM.CONS.GEN ---
Assessment & Plan Assessment/Plan (1) Hydronephrosis: (2) Ovarian cancer: (3) Ureteral obstruction: PLAN: Plan I do not see the benefit in pursuing nephrostomy tube drainage. She has refused to this previously, as well as again today. The bladder is distended on the CT scan. She has bilateral hydronephrosis despite the ureteral stents. She is already scheduled for ureteral stent change. I will plan to proceed with ureteral stent change on as scheduled. She is appropriate for hospice, but does not seem to understand. HPI Consult Data Date of Consult: 12/29/23 HPI Narrative Reason for Consultation: hydronephrosis bilaterally HPI Narrative: ADAM DUENAS, is a 73 F who presented to the emergency room yesterday with lower extremity pain and difficulty ambulating. She has a history of metastatic ovarian cancer with extrinsic bilateral ureteral obstruction with chronic indwelling stents. The stents are due to be changed on December 30 in 2 days. She has a negative urine culture from the office. She continues to deny hospice intervention, despite telling me that today she would just like to peacefully and that she does not expect to live much longer. She feels that the cancer has spread and she is having more pain than she has had in the past. She seems to have insight on this yet is not willing to work with hospice at this time. We discussed that the stents are likely being obstructed secondary to her cancer and that the only other option aside from changing the stents would be to place percutaneous nephrostomy tubes. We both agree that this is not the best route to take for her. She denies dysuria, hematuria or bladder pain. Her back pain is chronic at this point. She reports not having issues with emptying and I do not see the need for a James catheter despite her bladder distention on the CT. 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 Diabetes Former smoker GERD (gastroesophageal reflux disease) History of echocardiogram History of edema History of ovarian cancer History of pain when walking History of renal disease HTN (hypertension) Hypercholesterolemia Hyperlipidemia Loose, teeth Ovarian cancer Pruritus Pulmonary embolism Shortness of breath on exertion Syncope Ureteral obstruction Wears glasses Home Medications losartan 50 mg tablet 50 mg PO DAILY bp 06/25/23 [History Last Taken 12/27/23] Ca [id number] thistle capsule (Liver-Kidney Cleanser capsule) 2 cap PO DAILY clean kidney 09/24/23 [History Last Taken 12/27/23] oxycodone-acetaminophen 5 mg-325 mg tablet (Percocet) 1 tab PO Q8H PRN pain 3 days #10 tabs 10/01/23 [Rx Last Taken Unknown] Allergy/AdvReac Type Severity Reaction Status Date / Time shellfish derived Allergy Severe Rash Verified 12/27/23 18:40 Family History Mother CVA (cerebral vascular accident) Brother Diabetes Surgical History History of colonoscopy History of total hysterectomy with bilateral salpingo-oophorectomy (BSO) Hx of cystoscopy Social History household members: none Smoking Status: Former smoker alcohol intake: never substance use type: does not use ROS Constitutional Constitutional: Reports systems reviewed and no addt'l complaints, except as documented and weight loss Eyes Eyes: Reports systems reviewed and no addt'l complaints, except as documented ENT HEENT: Reports systems reviewed and no addt'l complaints, except as documented Cardiovascular Cardiovascular: Denies chest pain or dyspnea Respiratory/Chest Respiratory/Chest: Reports systems reviewed and no addt'l complaints, except as documented Gastrointestinal Gastrointestinal: Reports nausea and weight changes; Denies vomiting Genitourinary Genitourinary: Reports flank pain and urinary incontinence; Denies dysuria, hematuria, urinary frequency, urinary hesitancy or urinary urgency Musculoskeletal Musculoskeletal: Reports joint pain, muscle weakness and myalgias Integumentary Integumentary: Reports systems reviewed and no addt'l complaints, except as documented Neurologic Neurologic: Reports systems reviewed and no addt'l complaints, except as documented Psychiatric Psychiatric: Reports systems reviewed and no addt'l complaints, except as documented Endocrine Endocrinology: Reports systems reviewed and no addt'l complaints, except as documented Hematologic/Lymphatic Hematologic/Lymphatic: Reports systems reviewed and no addt'l complaints, except as documented Allergic/Immunologic Allergic/Immunologic: Reports systems reviewed and no addt'l complaints, except as documented Physical Exam Const alert, oriented x3 and no apparent distress General Appearance: comfortable and well developed HEENT normocephalic and head/scalp atraumatic Eyes General Eye: normal appearance of both eyes Neck General: trachea midline Chest inspection of chest normal Resp normal respiratory effort, normal air movement and no retractions Cardio regular rate GI soft to palpation no CVA tenderness Back/Spine no CVA tenderness Skin no rashes or lesions noted, no wounds and skin turgor normal Neuro oriented x3, CN's II-XII intact bilaterally and moves all extremities Psych mental status grossly normal and thought process normal Medical Records Data Medical Nutrition Assessment Dietitian: Malnutrition Criteria Met Start: 12/28/23 10:32 Freq: Status: Active Protocol: Document 12/28/23 10:46 [facility] (Rec: 12/28/23 10:46 [facility] [id number]) Nutrition Malnutrition Evidence of Malnutrition Exists Yes Malnutrition (severe): Chronic Evidenced By Weight Loss (Severe),Physical Changes (Severe) Clinical Problem Chronic Disease or Condition Related Malnutrition Etiology related to metastatic cancer and inadequate energy intake to meet est nutritional needs Signs/Symptoms as 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 Lab / Micro Data 12/29/23 03:30 12/29/23 03:30 Labs: Laboratory Results - last 24 hr 12/28/23 03:27: Diff Path Review February camille, Hemoglobin A1c 5.1 12/28/23 08:34: POC Glucose 71 L 12/28/23 11:53: POC Glucose 101 12/28/23 16:27: POC Glucose 89 12/28/23 21:20: POC Glucose 144 H 12/29/23 03:30: WBC 8.9, RBC 2.85 L, Hgb 8.4 L, Hct 26.0 L, MCV 91.2, MCH 29.5, MCHC 32.3, RDW Std Deviation 45.4 H, RDW Coeff of Sol 13.5, Plt Count 230, MPV 10.3, Immature Gran % (Auto) 0.300, Neut % (Auto) 70.0, Lymph % (Auto) 14.3 L, [place] % (Auto) 14.4 H, Eos % (Auto) 0.6, Baso % (Auto) 0.4, Absolute Neuts (auto) 6.2, Absolute Lymphs (auto) 1.27, Nucleated RBC % 0, Sodium 136, Potassium 4.0, Chloride 107, Carbon Dioxide 22.0, Anion Gap 7, BUN 37 H, Creatinine 2.60 H, Estim Creat Clear Calc 17.74, Est GFR (MDRD) Af Amer 23 L, Est GFR (MDRD) Non-Af 19 L, BUN/Creatinine Ratio 14.2, Glucose 113 H, Calcium 9.0, Phosphorus 3.3, Magnesium 1.9, Total Bilirubin 0.60, AST 21, ALT 9 L, Alkaline Phosphatase 80, Total Protein 7.4, Albumin 2.5 L, Globulin 4.9 H, Albumin/Globulin Ratio 0.5 L Imaging Radiology Impression Venous Doppler Study 12/27/23 22:04 Interpretation Summary There is no evidence of left lower extremity deep vein thrombosis. Left great saphenous vein appears patent and compressible segmentally. Left popliteal fossa 5.23 x 1.01 cm nonvascularHypoechoic structure consistent with a Spears's cyst. Clinical correlation would be appropriate. Normal flow patterns right common femoral vein Ordering Physician: Agustina Smith Performed By: Benjamin Gonzalez RVKallie
[2023-12-29 08:24] LABS: Bedside Glucose 92 mg/dL (74-106)
--- NOTE | 2023-12-29 11:38 | CASEMGMT ---
Social Work SW attempted to speak w/pt again today regarding discharge plan, she is off the floor at MRI. SW may check back as time allows. CAM Whitmore
[2023-12-29] MEDS: 0.9% Saline Lock 10 ML Syringe IV (11:55)
[2023-12-29] MEDS: Morphine 2 MG/ML Syringe IV (11:55)
[2023-12-29] MEDS: Ondansetron 4 MG/2 ML Vial IV (11:55)
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
[2023-12-29 16:45] LABS: Bedside Glucose 82 mg/dL (74-106)
--- NOTE | 2023-12-29 17:51 | NURSING ---
report called to MS RN at this time
[2023-12-29 18:36] VITALS: BP 141/68; PULSE 97; RESP 18; TEMP 36.6; O2SAT 97
[2023-12-29 20:00] VITALS: BP 129/63; PULSE 95; RESP 16; TEMP 37.1; O2SAT 100
[2023-12-29 22:18] LABS: Bedside Glucose 117 mg/dL (74-106)
[2023-12-30 02:00] VITALS: BP 136/73; PULSE 66; RESP 16; TEMP 36.8; O2SAT 98
[2023-12-30 05:31] VITALS: BMI 25.4
[2023-12-30 06:57] LABS: Bedside Glucose 95 mg/dL (74-106)
[2023-12-30 07:35] LABS: Absolute Lymphocyte Count 1.15 X10^3/uL (0.83-4.51); Absolute Neutrophil Count 4.5 X10^3/uL (2.0-7.7); Basophil# 0.03 X10^3/uL; Basophil% 0.4 % (0-1); Eosinophil# 0.09 X10^3/uL; Eosinophils% 1.3 % (0-5); Hematocrit 29.1 % (37-47); Hemoglobin 9.2 g/dL (12.0-15.0); Lymphocyte # 1.15 X10^3/ul (0.83-4.51); Mean Corp Hgb Conc 31.6 g/dL (32-36); Mean Corpuscular Volume 91.8 fL (81-99); Mean Platelet Vol. 11.6 fl (6.2-12.0); Monocyte# 0.93 X10^3/uL; Monocyte% 13.8 % (0-10); NRBC Flagged by Analyzer 0 % (0-5); Neutrophil # 4.54 X10^3/uL (2.7-7.7); Neutrophil % 67.2 % (47-70); POSITIVE COUNT YES; RBC Distribution Width CV 13.4 % (11.6-14.6); RBC Distribution Width SD 45.6 fl (35.1-43.9); Red Blood Count 3.17 M/mm3 (4.2-5.4); White Blood Count 6.8 K/mm3 (4.4-11.0)
[2023-12-30 08:19] LABS: Anion Gap 8 (5-15); BUN 41 mg/dL (7-18); BUN/Creat Ratio 14.6 RATIO (10-20); Calcium,Total 9.7 mg/dL (8.5-10.1); Chloride 104 mmol/L (98-107); Creatinine, Serum 2.81 mg/dL (0.55-1.02); EST Glomerular Filtration Rate 18 mL/min (>60); Est Glom Filt Rate - Afr Amer 21 mL/min (>60); Estimated Creatinine Clearance 16.41 ml/min; Glucose 99 mg/dL (74-106); Potassium 4.1 mmol/L (3.5-5.1); Sodium Level 135 mmol/L (136-145)
[2023-12-30 08:38] LABS: Differential Indicated SCAN CRITERIA MET
[2023-12-30 08:39] LABS: Platelet Estimate ADEQUATE (ADEQ)
--- NOTE | 2023-12-30 09:56 | CASEMGMT ---
KATIE CM into pt room, pt sitting up in bed in no distress massaging her left lower leg. Pt states she is painful but denies need for nurse to be notified. She states she will not take any more pain medication as it made it worse. Made her aware that a different medication may be an option. Pt denies need for this. Pt states she just wants to go home and sleep in her papasan chair. Pt denies any need for services in the home, discussed home health options for her. Pt states she just wants her surgery tomorrow and to go home. Pt states she will be fine when she gets home. Pt denies any further needs. Updated hospitalist.
[2023-12-30 10:00] VITALS: RESP 18
[2023-12-30 10:15] VITALS: BP 131/62; PULSE 66; RESP 18; TEMP 37.2; O2SAT 98
[2023-12-30 12:06] LABS: Bedside Glucose 93 mg/dL (74-106)
--- NOTE | 2023-12-30 12:51 | PCM.PN.HOSP ---
Reason for Visit Reason for Visit: Left leg pain Subjective Subjective No significant issues overnight. Patient refusing pain medication and antiemetics. States she wants to get her stents placed tomorrow and go home. Still refusing any conversation with regards to discharge to skilled facility or hospice. Objective Data Objective Data Vital Signs: Vital Signs Temp Pulse Resp BP Pulse Ox O2 Del Method 98.9 F 66 18 131/62 H 98 Room Air 12/30/23 10:15 12/30/23 10:15 12/30/23 10:15 12/30/23 10:15 12/30/23 10:15 12/30/23 10:15 Oxygen Delivery Method Room Air Weight: 65 kg Body Mass Index (BMI) 25.4 Intake & Output: Intake and Output for Last 24 Hours 12/28/23 12/29/23 12/30/23 23:59 23:59 23:59 Intake Total 240 / 240 Output Total 550 / 550 Balance 240 / 240 -550 / -550 Medical Nutrition Assessment Dietitian: Malnutrition Criteria Met Start: 12/28/23 10:32 Freq: Status: Active Protocol: Document 12/28/23 10:46 ILDA (Rec: 12/28/23 10:46 ILDA [id number]) Nutrition Malnutrition Evidence of Malnutrition Exists Yes Malnutrition (severe): Chronic Evidenced By Weight Loss (Severe),Physical Changes (Severe) Clinical Problem Chronic Disease or Condition Related Malnutrition Etiology related to metastatic cancer and inadequate energy intake to meet est nutritional needs Signs/Symptoms as evidenced 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 Lab / Micro Data 12/30/23 06:40 12/30/23 06:40 Labs: Laboratory Results - last 24 hr 12/29/23 16:24: POC Glucose 82 12/29/23 21:38: POC Glucose 117 H 12/30/23 06:27: POC Glucose 95 12/30/23 06:40: WBC 6.8, RBC 3.17 L, Hgb 9.2 L, Hct 29.1 L, MCV 91.8, MCH 29.0, MCHC 31.6 L, RDW Std Deviation 45.6 H, RDW Coeff of Sol 13.4, Plt Count , MPV 11.6, Immature Gran % (Auto) 0.300, Neut % (Auto) 67.2, Lymph % (Auto) 17.0 L, Ward % (Auto) 13.8 H, Eos % (Auto) 1.3, Baso % (Auto) 0.4, Absolute Neuts (auto) 4.5, Absolute Lymphs (auto) 1.15, Nucleated RBC % 0, Platelet Estimate ADEQUATE, Sodium 135 L, Potassium 4.1, Chloride 104, Carbon Dioxide 23.0, Anion Gap 8, BUN 41 H, Creatinine 2.81 H, Estim Creat Clear Calc 16.41, Est GFR (MDRD) Af Amer 21 L, Est GFR (MDRD) Non-Af 18 L, BUN/Creatinine Ratio 14.6, Glucose 99, Calcium 9.7 12/30/23 11:42: POC Glucose 93 Radiography Diagnostic Testing: Radiology Impression Lumbar Spine MRI 12/29/23 07:11 IMPRESSION: Diffuse disseminated sclerotic metastasis involving all the lumbar vertebral bodies as well as extensive retroperitoneal adenopathy encasing the aorta which demonstrates distal aneurysmal dilatation. There is also bilateral renal obstruction There is multilevel spinal stenosis most severe at L3-4 secondary to bulging annulus facet arthropathy and exaggerated by shortened pedicles No definitive evidence for epidural extension of tumor which may be further assessed with contrast-enhanced study if clinically warranted Electronically Signed: Darius Valencia MD at 16:21 EDT Reading Location ID and State: [facility] / [place] Tel , Service support , Physical Exam Narrative . Const alert, oriented x3, no apparent distress and average body habitus; Negative for healthy appearing or well nourished Constitutional Narrative: Thin, , older, female, sitting up in bed, appears comfortable and nontoxic HEENT head/scalp atraumatic and moist oral mucous membranes HEENT Narrative: Mallampati 2, no thrush Head and Scalp: normocephalic Resp normal respiratory effort, no retractions, no use of accessory muscles and clear to auscultation bilaterally Auscultation: Negative for rales, rhonchi or wheezes Cardio regular rate, regular rhythm, S1 normal heart sound, S2 normal heart sound, no rub, no gallops and no clicks; Negative for no murmurs Cardio Narrative: 2 out of 6 systolic murmur GI normal to inspection, nondistended, normoactive bowel sounds, soft to palpation and non-tender GI Narrative: Mild hepatomegaly noted Extremity Extremity Narrative: Bilateral lower extremity edema left greater than right, no clubbing or cyanosis Neuro oriented x3, moves all extremities and no focal motor deficits Neuro Narrative: Significant generalized weakness noted proximal greater than distal and lower extremities more affected than upper extremities Speech: speech normal Psych affect normal Psych Narrative: Eye contact is good, patient interacts appropriately Assessment & Plan Assessment/Plan (1) Difficulty in walking: (2) Edema of left lower leg: (3) Leg pain, left: PLAN: Plan Lower extremity edema/pain -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 There does not appear to be any neurological compromise however there is vascular compression noted on the MRI. -I discussed the case with Dr. Vora and he stated he was happy to get involved at the patient would consider any intervention however he was not clear that it would help her definitively -I discussed the case with the patient and she is not interested in any intervention -Patient continues to refuse pain medication -Noncontrasted MRI shows diffuse disseminated sclerotic metastatic disease in the lumbar spine vertebral bodies as well as extensive retroperitoneal adenopathy encasing the aorta which demonstrates distal aneurysmal dilation, bilateral renal obstruction, multilevel spinal stenosis most severe at L3-L4 and exaggerated by shortened pedicles with no evidence of epidural extension of the tumor Debility/adult failure to thrive -Likely related to her metastatic ovarian cancer and the above -PT/OT following and recommending placement -Case management/social work is following the patient however she is adamant that she will go home at discharge even though we have discussed with her multiple times that she is not safe for discharge she cannot ambulate independently and it takes assist of 2 to move her in her bed -Patient overall does not seem to be very realistic and her goals for discharge planning and continues to demand discharge home with no assistance or hospice Metastatic ovarian carcinoma -High-grade poorly differentiated serous cystadenocarcinoma with metastatic disease to the lymph nodes, liver, bone, and abdominal wall -Underwent ex lap with total abdominal hysterectomy, bilateral salpingo-oophorectomy with Dr. Quiroz in November 2009 and then underwent adjuvant chemotherapy -Further treatment declined due to poor prognosis -Hospice/palliative care evaluated the patient and she is declining at this time even though her goals of care are consistent with hospice philosophy -Extensive metastatic disease noted as above on MRI Moderate bilateral hydronephrosis -Follows with Dr. Potter -Has bilateral stents in place--> bilateral stents to be changed tomorrow with discharge following -Hydronephrosis currently is despite bilateral stent placement -Urology consulted-appreciate input AAA -CT of the abdomen pelvis shows infrarenal abdominal aortic aneurysm at 2.8 cm -No acute needs and patient is likely not surgical candidate due to the above DM-2 -Patient is not on any medications and blood sugars are not markedly elevated -No diet restriction -Last hemoglobin A1c was done on 09/24/2023 and was 5.5. Leukocytosis -Resolved Chronic normocytic anemia secondary to chronic disease -Hemoglobin is relatively stable -Continue to monitor Hypertension/hyperlipidemia -As needed hydralazine available -Patient has not been on any chronic medication due to poor overall prognosis CKD stage IV -Bilateral hydronephrosis identified -Bilateral ureteral stents to be exchanged tomorrow -Creatinine is stable GERD -As needed Mylanta available History of tobacco abuse -Encourage ongoing cessation DVT prophylaxis -Hold for procedures tomorrow CODE STATUS -DNR CCA with no intubation per discussion on admission Disposition: -Plan is for discharge home with no assistance after stent placement tomorrow. Patient is insistent that on this and has been talked to multiple times by different providers including social work, case management, myself, Dr. Potter and the nursing staff with regards to placement and or hospice and she adamantly denies the need for it despite her goals of care being consistent with a hospice philosophy. I highly anticipate the patient will return for readmission due to ongoing debility and worsening metastatic ovarian cancer. Charges/Coding Visit Charges Inpatient E&M: 62174 Subs Hosp L2
[2023-12-30 14:53] VITALS: BP 150/75; PULSE 86; RESP 18; TEMP 36.8; O2SAT 98
[2023-12-30 14:57] VITALS: RESP 18
[2023-12-30 18:32] LABS: Bedside Glucose 125 mg/dL (74-106)
[2023-12-30 20:15] VITALS: BP 148/61; PULSE 90; RESP 16; TEMP 36.8; O2SAT 100
[2023-12-30] MEDS: Acetaminophen 325 MG Tablet 650 MG PO (20:47)
[2023-12-30] MEDS: oxyCODONE 5 MG Tablet PO (20:53)
[2023-12-30 22:32] LABS: Bedside Glucose 89 mg/dL (74-106)
[2023-12-31] VITALS (9 sets, daily range): BP systolic 125–164; BP diastolic 58–82; PULSE 73–98; RESP 16–18; TEMP 36.3–37.1; O2SAT 99–100; BMI 25.5; BMI 25.7
[2023-12-31 03:58] LABS: Absolute Lymphocyte Count 1.54 X10^3/uL (0.83-4.51); Absolute Neutrophil Count 4.4 X10^3/uL (2.0-7.7); Basophil# 0.04 X10^3/uL; Basophil% 0.6 % (0-1); Eosinophil# 0.11 X10^3/uL; Eosinophils% 1.6 % (0-5); Hematocrit 27.8 % (37-47); Hemoglobin 8.7 g/dL (12.0-15.0); Lymphocyte # 1.54 X10^3/ul (0.83-4.51); Lymphocyte % 22.1 % (19-41); Mean Corp Hgb Conc 31.3 g/dL (32-36); Mean Corpuscular Hgb 28.7 pg (27.0-32.0); Mean Corpuscular Volume 91.7 fL (81-99); Mean Platelet Vol. 10.5 fl (6.2-12.0); Monocyte# 0.87 X10^3/uL; Monocyte% 12.5 % (0-10); NRBC Flagged by Analyzer 0 % (0-5); Neutrophil # 4.39 X10^3/uL (2.7-7.7); Neutrophil % 63.1 % (47-70); Platelet Count 281 K/mm3 (150-450); RBC Distribution Width CV 13.3 % (11.6-14.6); RBC Distribution Width SD 44.8 fl (35.1-43.9); Red Blood Count 3.03 M/mm3 (4.2-5.4)
[2023-12-31 04:06] LABS: International Normalized Ratio 1.2; Prothrombin Time (Protime)PT. 14.7 SECONDS (11.7-14.9)
[2023-12-31 04:08] LABS: Partial Thromboplast Time 34.4 Seconds (24.1-36.2)
[2023-12-31 04:14] LABS: Anion Gap 10 (5-15); BUN 49 mg/dL (7-18); BUN/Creat Ratio 15.1 RATIO (10-20); Calcium,Total 9.2 mg/dL (8.5-10.1); Chloride 104 mmol/L (98-107); Creatinine, Serum 3.25 mg/dL (0.55-1.02); EST Glomerular Filtration Rate 15 mL/min (>60); Est Glom Filt Rate - Afr Amer 18 mL/min (>60); Estimated Creatinine Clearance 14.24 ml/min; Glucose 107 mg/dL (74-106); Potassium 3.9 mmol/L (3.5-5.1); Sodium Level 136 mmol/L (136-145)
[2023-12-31 04:47] LABS: AST(SGOT) 19 U/L (15-37); Alanine Aminotransfer ALT/SGPT 11 U/L (13-56); Albumin, Serum 2.6 g/dL (3.2-5.0); Alkaline Phosphatase 95 U/L (45-117); Bilirubin, Direct 0.18 mg/dL (0.00-0.30); Globulin 5.2 g/dL (2.2-4.2); Protein, Total 7.8 g/dL (6.4-8.2)
[2023-12-31 06:31] LABS: Bedside Glucose 98 mg/dL (74-106)
[2023-12-31] MEDS: Lactated Ringers 1,000 ML 15 ML IV (07:08)
--- NOTE | 2023-12-31 07:57 | PCM.OPRPT ---
Report of Operation Date of Procedure: 12/31/23 Pre-Operative Diagnosis: Bilateral ureteral extrinsic obstruction Post-Operative Diagnosis: Same Surgery/Procedure Performed:: Cystoscopy with bilateral stent change Description of Surgical Findings:: 8.5 American by 24 cm JJ stent on the left, 7 American by 24 cm JJ stent on the right Surgeon: Sharon Potter Type of Anesthesia: MAC Description of Procedure: The patient is a 73-year-old female with ongoing issues related to metastatic ovarian cancer with extrinsic compression of bilateral ureters. She presents today for routine stent change. Informed consent has been obtained. The patient was taken the operating room and placed on the operating room table. Anesthesia monitored the head, neck, airway, IV access and vital signs throughout the case. Once anesthesia was appropriate administered, she was placed into dorsolithotomy position was prepped and draped in usual sterile fashion. The cystoscope was inserted through the urethra under direct visualization into the urinary bladder. The left ureteral stent was observed and grasped with grasping forceps and brought to the urethral meatus. It was intubated with a 0.035 Glidewire and then removed. A brand-new stent was placed over the wire and positioned with curling in the renal pelvis as well as the urinary bladder. This process was repeated on the patient's right side. After both sides were completed, the bladder was emptied and the cystoscope was removed. The patient was awakened and taken to the recovery room in good condition. There were no complications during this procedure. Complications None
[2023-12-31 09:00] LABS: Pathologist Review Reviewed
[2023-12-31] MEDS: Cephalexin 250 MG Capsule PO (11:33)
--- NOTE | 2023-12-31 11:33 | PCM.DC.SUM ---
Providers Date of Admission: 12/27/23 Primary Care Physician: Dr. Conner Nolan MD Consultations 12/27/23 22:27 Consult: Hospice / Palliative Care Routine Consulting Provider: [facility] Reason for Consult: Metastatic ovarian CA EMERGENT Consult: No MD Notified: Yes Date Notified: 12/27/23 Time Notified: 22:03 Method of Notification: Answering Service 12/28/23 12:24 Consult: Urology Routine Consulting Provider: Sharon Potter Reason for Consult: B hydro EMERGENT Consult: No Notified: Yes Date Notified: 12/28/23 Time Notified: 12:24 Method of Notification: Answering Service Reason For Visit: SUSPECTED LLE DVT, ADULT FTT, METASTATIC OVARIANCA Diagnosis Discharge Diagnosis (1) Difficulty in walking: Status: Acute Code(s): R26.2 - Difficulty in walking, not elsewhere classified (2) Edema of left lower leg: Status: Acute Code(s): R60.0 - Localized edema (3) Leg pain, left: Status: Acute Code(s): M79.605 - Pain in left leg Plan Lower extremity edema/pain -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 There does not appear to be any neurological compromise however there is vascular compression noted on the MRI. -I discussed the case with Dr. Vora and he stated he was happy to get involved at the patient would consider any intervention however he was not clear that it would help her definitively -I discussed the case with the patient and she is not interested in any intervention -Patient continues to refuse pain medication -Noncontrasted MRI shows diffuse disseminated sclerotic metastatic disease in the lumbar spine vertebral bodies as well as extensive retroperitoneal adenopathy encasing the aorta which demonstrates distal aneurysmal dilation, bilateral renal obstruction, multilevel spinal stenosis most severe at L3-L4 and exaggerated by shortened pedicles with no evidence of epidural extension of the tumor Debility/adult failure to thrive -Likely related to her metastatic ovarian cancer and the above -PT/OT following and recommending placement -Case management/social work is following the patient however she is adamant that she will go home at discharge even though we have discussed with her multiple times that she is not safe for discharge she cannot ambulate independently and it takes assist of 2 to move her in her bed -Patient overall does not seem to be very realistic and her goals for discharge planning and continues to demand discharge home with no assistance or hospice Metastatic ovarian carcinoma -High-grade poorly differentiated serous cystadenocarcinoma with metastatic disease to the lymph nodes, liver, bone, and abdominal wall -Underwent ex lap with total abdominal hysterectomy, bilateral salpingo-oophorectomy with Dr. Quiroz in November 2009 and then underwent adjuvant chemotherapy -Further treatment declined due to poor prognosis -Hospice/palliative care evaluated the patient and she is declining at this time even though her goals of care are consistent with hospice philosophy -Extensive metastatic disease noted as above on MRI Moderate bilateral hydronephrosis -Follows with Dr. Potter -Has bilateral stents in place--> bilateral stents to be changed tomorrow with discharge following -Hydronephrosis currently is despite bilateral stent placement -Urology consulted-appreciate input AAA -CT of the abdomen pelvis shows infrarenal abdominal aortic aneurysm at 2.8 cm -No acute needs and patient is likely not surgical candidate due to the above DM-2 -Patient is not on any medications and blood sugars are not markedly elevated -No diet restriction -Last hemoglobin A1c was done on 09/24/2023 and was 5.5. Leukocytosis -Resolved Chronic normocytic anemia secondary to chronic disease -Hemoglobin is relatively stable -Continue to monitor Hypertension/hyperlipidemia -As needed hydralazine available -Patient has not been on any chronic medication due to poor overall prognosis CKD stage IV -Bilateral hydronephrosis identified -Bilateral ureteral stents to be exchanged tomorrow -Creatinine is stable GERD -As needed Mylanta available History of tobacco abuse -Encourage ongoing cessation DVT prophylaxis -Hold for procedures tomorrow CODE STATUS -DNR CCA with no intubation per discussion on admission Disposition: -Plan is for discharge home with no assistance after stent placement tomorrow. Patient is insistent that on this and has been talked to multiple times by different providers including social work, case management, myself, Dr. Potter and the nursing staff with regards to placement and or hospice and she adamantly denies the need for it despite her goals of care being consistent with a hospice philosophy. I highly anticipate the patient will return for readmission due to ongoing debility and worsening metastatic ovarian cancer. Medications at Discharge Home Medications losartan 50 mg tablet 50 mg PO DAILY bp 09/07/23 Ca ctzi-[id number]-gvma thistle capsule (Liver-Kidney Cleanser capsule) 2 cap PO DAILY clean kidney 09/24/23 acetaminophen 500 mg tablet (Tylenol Extra Strength) 1,000 mg (2 x 500 mg) PO Q8 #90 tabs 12/31/23 cephalexin 500 mg capsule 500 mg PO BID #6 caps 12/31/23 Hospital Course Operations None Procedures - (CT abdomen and pelvis/lower extremity Dopplers/MRI lumbar spine) Summary of Care Provided Minutes Spent on Discharge: 40 Hospital Course: Ms. Pizano is a 73-year-old female who presented to the emergency department at [facility] on 12/27/2023 due to left lower extremity pain and edema, difficulty ambulating, and difficulty caring for herself. She has a known history of metastatic ovarian cancer which was initially diagnosed in 2014 with recurrence in March 2023. She did report a history of DVT and PE however she had stopped taking her blood thinners in March due to being told she had a poor prognosis. For about 3 days prior to presentation she had difficulty ambulating and caring for herself at home so she elected to come in for an evaluation. Vital signs on presentation were unremarkable. CBC was overall unremarkable. CMP showed a BUN of 28 and a serum creatinine of 2.44 with a known history of CKD stage IV and obstructing hydronephrosis related to her tumor burden. A CT of the abdomen pelvis was performed and showed metastatic retroperitoneal lymphadenopathy which was encasing the aorta, inferior vena cava, and ureters along with some metastatic pelvic sidewall lymphadenopathy, moderate bilateral hydronephrosis despite presence of bilateral ureteral stents, dilation of the infrarenal abdominal aorta with a maximal dilation of 2.8 cm, suspected hepatic metastasis, suspected blastic metastasis in the lumbar spine, and anasarca. In the emergency department she was given Lovenox 60 mg subcu x 1 dose and IV fentanyl x 1 dose and was admitted to the hospital. There was concern that she could have recurrent lower extremity DVTs as the etiology for her pain and swelling. Bilateral lower extremity Dopplers were performed and unremarkable for any clot burden so I discontinued the Eliquis that she was placed on on admission. The patient talks to hospice as her overall philosophy with management for her metastatic ovarian cancer is palliative in nature. She does not want to pursue any aggressive treatment however she declined hospice. Multiple people had multiple conversations with her with regards to hospice, [place] [facility] facility placement and otherwise and she declined all help. I am unclear if she understood exactly what hospice was but when I tried to talk to her further about it she indicated she did not want morphine and with morphine. I tried to explain that that is not what hospice is and she declined again. With her not pursuing hospice urology was consulted as she was to have her stents exchanged which was performed prior to discharge on 12/31/2023. She has ongoing renal dysfunction for which she is not dialyzable and does not want dialysis. She refuses all pain medication other than Tylenol and stated the Tylenol is fine and that she would go home on this. She was seen by case management during her hospitalization and was diagnosed with severe malnutrition. I have asked her to schedule Tylenol at home 1 g 3 times daily and not to use over 1 g 3 times daily due to the hepatotoxicity and she seemed to voiced understanding for this. I will have her follow-up with Dr. Potter in a month if she is still living. Urology recommended that she be discharged on Keflex 500 mg p.o. twice daily for the next 3 days with recent stent placement. Again patient was adamant on going home. I did discuss with her that I highly doubt she is going to be able to manage this and I expect failure at home and strongly encouraged placement versus hospice and again she was adamant stating she could go home and take care of herself without a problem. She was discharged home in stable condition but is overwhelmingly appropriate for hospice on 12/31/2023. Discharge diagnoses: Bilateral lower extremity edema secondary to metastatic cancer Debility Adult failure to thrive Metastatic ovarian cancer stage IV Severe malnutrition Bilateral hydronephrosis secondary to ovarian cancer AAA DM-2 Leukocytosis Chronic normocytic anemia secondary to chronic disease Hypertension Hyperlipidemia CKD stage IV GERD History of tobacco abuse Physical Exam Narrative . Const alert, oriented x3, no apparent distress, average body habitus and no limitations; Negative for healthy appearing or well nourished Constitutional Narrative: Thin, , older, female, sitting up in bed, appears comfortable and nontoxic General Appearance: cooperative, comfortable, well kempt and well developed Orientation / Consciousness: awake, oriented to person, oriented to place and oriented to time Exam Limitations: no limitations HEENT normocephalic, head/scalp atraumatic, hearing grossly normal bilaterally and moist oral mucous membranes HEENT Narrative: Mallampati 2, no thrush, dentition is poor overall Eyes PERRL, EOMs intact bilaterally and conjunctivae normal Eyes Narrative: No scleral icterus Neck no lymphadenopathy and supple Neck Narrative: Trachea midline, no thyroid enlargement Resp normal respiratory effort, no retractions, no use of accessory muscles and clear to auscultation bilaterally Auscultation: Negative for rales, rhonchi or wheezes Cardio regular rate, regular rhythm, S1 normal heart sound, S2 normal heart sound, no rub, no gallops and no clicks; Negative for no murmurs Cardio Narrative: 2 out of 6 systolic murmur GI normal to inspection, nondistended, normoactive bowel sounds, soft to palpation and non-tender GI Narrative: Mild hepatomegaly noted, abdominal exam feels somewhat nodular Extremity Extremity Narrative: Bilateral lower extremity edema left greater than right, no clubbing or cyanosis Skin no rashes or lesions noted, no wounds, skin turgor normal and no jaundice Neuro oriented x3, CN's II-XII intact bilaterally, moves all extremities and no focal motor deficits Neuro Narrative: Significant generalized weakness noted proximal greater than distal and lower extremities more affected than upper extremities Speech: speech normal Psych affect normal Psych Narrative: Eye contact is good, patient interacts appropriately Medical Records Data Medical Nutrition Assessment Dietitian: Malnutrition Criteria Met Start: 12/28/23 10:32 Freq: Status: Active Protocol: Document 12/28/23 10:46 [facility] (Rec: 12/28/23 10:46 [facility] [id number]) Nutrition Malnutrition Evidence of Malnutrition Exists Yes Malnutrition (severe): Chronic Evidenced By Weight Loss (Severe),Physical Changes (Severe) Clinical Problem Chronic Disease or Condition Related Malnutrition Etiology related to metastatic cancer and inadequate energy intake to meet est nutritional needs Signs/Symptoms as evidenced by 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 Weight / BMI Weight Weight: 65.9 kg Body Mass Index (BMI) 25.7 ABG / Lab / Microbiology Data 12/31/23 03:39 12/31/23 03:39 Laboratory: Laboratory Results - last 24 hr 12/28/23 03:27: Diff Path Review Reviewed 12/30/23 11:42: POC Glucose 93 12/30/23 18:14: POC Glucose 125 H 12/30/23 20:46: POC Glucose 89 12/31/23 03:39: WBC 7.0, RBC 3.03 L, Hgb 8.7 L, Hct 27.8 L, MCV 91.7, MCH 28.7, MCHC 31.3 L, RDW Std Deviation 44.8 H, RDW Coeff of Sol 13.3, Plt Count 281, MPV 10.5, Immature Gran % (Auto) 0.100, Neut % (Auto) 63.1, Lymph % (Auto) 22.1, Karnes % (Auto) 12.5 H, Eos % (Auto) 1.6, Baso % (Auto) 0.6, Absolute Neuts (auto) 4.4, Absolute Lymphs (auto) 1.54, Nucleated RBC % 0, PT 14.7, INR 1.2, APTT 34.4, Sodium 136, Potassium 3.9, Chloride 104, Carbon Dioxide 22.0, Anion Gap 10, BUN 49 H, Creatinine 3.25 H, Estim Creat Clear Calc 14.24, Est GFR (MDRD) Af Amer 18 L, Est GFR (MDRD) Non-Af 15 L, BUN/Creatinine Ratio 15.1, Glucose 107 H, Calcium 9.2, Total Bilirubin 0.40, Direct Bilirubin 0.18, AST 19, ALT 11 L, Alkaline Phosphatase 95, Total Protein 7.8, Albumin 2.6 L, Globulin 5.2 H 12/31/23 05:18: POC Glucose 98 Radiography Diagnostic Testing: Radiology Impression Lumbar Spine MRI 12/29/23 07:11 IMPRESSION: Diffuse disseminated sclerotic metastasis involving all the lumbar vertebral bodies as well as extensive retroperitoneal adenopathy encasing the aorta which demonstrates distal aneurysmal dilatation. There is also bilateral renal obstruction There is multilevel spinal stenosis most severe at L3-4 secondary to bulging annulus facet arthropathy and exaggerated by shortened pedicles No definitive evidence for epidural extension of tumor which may be further assessed with contrast-enhanced study if clinically warranted Electronically Signed: Darius Valencia MD at 16:21 EDT , D/C Instructions Discharge Diet: No restrictions Discharge Activity: Return to Normal Activity Meaningful Use Info Meaningful Use Diagnoses (Choose all that apply): None applicable Discharge Plan Admission Admit Date/Time: 12/27/23 22:01 Primary Reason for Your Visit: Left leg pain Attending Provider: Anh Hurley Primary Care Provider: Conner Nolan Consulting Providers: Agustina Smith; Melecio Yeboah; Celeste Khan; Marychuy Soto; Lori Pandya [employer]OR; Sharon Potter Discharge Orders/Prescriptions Prescriptions: New acetaminophen [Tylenol Extra Strength] 500 mg tablet 1,000 mg PO Q8 Qty: 90 0RF cephalexin 500 mg capsule 500 mg PO BID Qty: 6 0RF Continued losartan 50 mg tablet 50 mg PO DAILY Patient Comments: TAKE 1 TABLET BY MOUTH ONCE DAILY Liver-Kidney Cleanser Capsule 2 cap PO DAILY Discontinued oxycodone-acetaminophen [Percocet] 5-325 mg tablet 1 tab PO Q8H PRN (Reason: pain) 3 Days Qty: 10 0RF Referrals / Follow Up: Conner Nolan MD [Primary Care Provider] - Within 1 Week Sharon Potter MD [Med Staff - Active Staff] - Within 1 Month (Call to make appointment) Disposition Disposition (needs filled in before D/C Order can be placed): Home, Self Care Charges/Coding Visit Charges Inpatient E&M: 02341 Disch Hosp >30min
--- NOTE | 2023-12-31 12:00 | CASEMGMT ---
RN CM into pt room, pt sitting up in bed. She is still denying any homegoing needs. Pt states she doesn't have that much time left . She denies need for hospice. She states if she needs anything she plans to go to [facility]. Pt states she just needs her tylenol for pain and she will be fine. Pt ready for dc today.
[2023-12-31 12:16] LABS: Bedside Glucose 138 mg/dL (74-106)
[2023-12-31 14:25] LABS: Hemoglobin A1c 5.1 % (3.8-5.6)
== END 2023-12-31 14:09 | disposition home or self-care (01) | DRG 987 ==
LOC: ED 21:30 → ICU 22:08 → MS3 12-29 18:08
PROVIDERS: Anesthesiology; Urology; Admitting Provider Family Medicine; Emergency Provider Emergency Medicine; PCP Family Medicine; Visit Provider Internal Medicine
PROC: 0T788DZ Dilation of Bilateral Ureters with Intraluminal Device, Via Natural or Artificial Opening Endoscopic (ICD-10-PCS; principal; 2023-12-31 08:10)
DX: C56.9 Malignant neoplasm of unspecified ovary (principal); E43 Unspecified severe protein-calorie malnutrition; R18.0 Malignant ascites; C77.5 Secondary and unspecified malignant neoplasm of intrapelvic lymph nodes; C79.51 Secondary malignant neoplasm of bone; C77.2 Secondary and unspecified malignant neoplasm of intra-abdominal lymph nodes; N13.1 Hydronephrosis with ureteral stricture, not elsewhere classified; N18.4 Chronic kidney disease, stage 4 (severe); C78.7 Secondary malignant neoplasm of liver and intrahepatic bile duct; E11.22 Type 2 diabetes mellitus with diabetic chronic kidney disease; I77.811 Abdominal aortic ectasia; I71.43 Infrarenal abdominal aortic aneurysm, without rupture; I12.9 Hypertensive chronic kidney disease with stage 1 through stage 4 chronic kidney disease, or unspecified chronic kidney disease; D63.8 Anemia in other chronic diseases classified elsewhere; R26.2 Difficulty in walking, not elsewhere classified; K21.9 Gastro-esophageal reflux disease without esophagitis; E78.00 Pure hypercholesterolemia, unspecified; M48.061 Spinal stenosis, lumbar region without neurogenic claudication; D72.829 Elevated white blood cell count, unspecified; R62.7 Adult failure to thrive; Z87.891 Personal history of nicotine dependence; R53.81 Other malaise; Z79.01 Long term (current) use of anticoagulants; Z66 Do not resuscitate; Z68.25 Body mass index [BMI] 25.0-25.9, adult; Z79.899 Other long term (current) drug therapy; Z86.711 Personal history of pulmonary embolism; Z86.718 Personal history of other venous thrombosis and embolism
CPT/HCPCS: 36415; 72148; 74176; 80048; 80053; 80076; 82962; 83036; 83735; 83880; 84100; 85025; 85610; 85730; 93005; 93971; 94668; 97110; 97162; 97166; 97802; 99285; J7120; A4216; C1874; C2617; J2405

== ENCOUNTER 2024-03-30 10:00 | Day surgery (SDC) | payer MEDICARE, SELFPAY ==
[2024-03-30 12:02] VITALS: BP 140/51; PULSE 73; RESP 16; TEMP 36.7; O2SAT 100
--- NOTE | 2024-03-30 12:04 | PRE.ANES_ITS ---
ASA Classification* ASA Classification ASA Classification: 3 Assessment & Plan Anesthesia* Anesthesia Assessment Anesthesia Assessment: Discussed sedation and/or anesthesia options, risks, benefits, and alternatives with patient/parents/legal guardian/POA. Questions invited. The patient/parents/legal guardian/POA seems to understand and agrees to proceed with anesthesia plan. Reviewed the physical assessment, medical history, allergy history and patient home medications list prior to surgery/procedure/anesthetic and documented any changes. Performed airway and anesthesia risk assessments. Anesthesia Type Anesthesia Type: MAC Pre-Assessment Diagnosis/Proposed Procedure Planned Operative Procedure(s): BILAT STENT CHANGE Anesthesia History Anesthesia History - enamel drier: Anesthesia History - enamel drier Hx Hospitalization Yes: 12/2023 FOR [facility] 03/25/24 09:08 Any Problems With Anesthesia No 03/25/24 09:08 Cholinesterase deficiency No 03/25/24 09:08 You/Your Family Experience No 03/25/24 09:08 fever (hyperthermia) with Relationship Recent Exposure to Contagious No 12/30/23 23:12 Disease Does patient have nerve No 03/25/24 09:08 stimulator Patient instructed to have device shut off --Does patient have Pacemaker or ICD? When Was Last Pacemaker Check QUESTION #4 FULL TEXT: You/Your Family Experience fever (hyperthermia) with Anesthesia Last Oral Intake Last Oral intake: Last Oral Intake NPO since Meds taken in AM with sips of water? Meds patient instructed to take am of surgery PONV PONV - enamel drier: PONV - enamel drier Female Yes 03/25/24 09:08 HX of Motion Sickness No 03/25/24 09:08 HX of N/V After Surgery No 03/25/24 09:08 Non-Smoker Yes 03/25/24 09:08 Duration of Surgery greater No 03/25/24 09:08 than 60 minutes Number of Risk Factors 2 03/25/24 09:08 PONV Score Moderate Risk 03/25/24 09:08 Height & Weight Height & Weight: Anesthesia: Height & Weight Height 1.6 m 12/31/23 05:40 Respiratory Assessment Respiratory Assessment - enamel drier: Respiratory Tract Infection Hx - enamel drier Hx Respiratory Tract Infection No 03/25/24 09:08 STOP Sleep Apnea STOP Sleep Apnea - enamel drier: STOP Sleep Apnea - enamel drier Hx Hypertension Yes: CONTROLLED ON MED 03/25/24 09:08 Hx Sleep Apnea No 03/25/24 09:08 CPAP BIPAP Do you snore loudly (louder Yes 03/25/24 09:08 than talking or can be heard Do you often feel tired/ No 03/25/24 09:08 fatigued/ sleepy during daytime? Has anyone observed you stop No 03/25/24 09:08 breathing during sleep? STOP Results Positive 03/25/24 09:08 QUESTION #5 FULL TEXT : Do you snore loudly (louder than talking or can be heard through closed doors)? 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 Specify any problems Hx of Preganancy in last 3 No 03/25/24 09:08 Months Nurse Filling Out Transfusion DSCHRIBER 03/25/24 09:08 & Questions: Date: 03/25/24 03/25/24 09:08 Time: 09:09 03/25/24 09:08 Patient unable to answer at this time (ie. confused, unrespo /Reproduction History /Reproductive History - enamel drier: /Reproductive Hx- enamel drier Hx Now Gestational Age (in weeks): EDC: Hx Hx Para Hx Section SAB No 03/25/24 09:08 Active Medications Active Medications: Current Medications Generic Name Dose Route Start Last Admin Trade Name Freq PRN Reason Stop Dose Admin Cefazolin Sodium 2 gm/ Sodium 110 mls @ 150 mls/hr 03/30/24 13:00 Chloride IV 03/30/24 13:43 PREOP ONE Lactated Ringer's 1,000 mls @ 15 mls/hr 03/30/24 11:15 IV .Q48H [facility] Dextrose/Lactated Ringer's 1,000 mls @ 15 mls/hr 03/30/24 12:00 IV .Q48H [facility] Anesthesia Focused Assessment* Airway Assessment Mouth opens (cm): 3 Mallampati Score: I Focused Labs Anesthesia Preop lab: CBC WBC 7.0 K/mm3 (4.4-11.0) 12/31/23 03:39 RBC 3.03 M/mm3 (4.2-5.4) L 12/31/23 03:39 Hgb 8.7 g/dL (12.0-15.0) L 12/31/23 03:39 Hct 27.8 % (37-47) L 12/31/23 03:39 Plt Count 281 K/mm3 (150-450) 12/31/23 03:39 CHEMISTRY Potassium 3.9 mmol/L (3.5-5.1) 12/31/23 03:39 Sodium 136 mmol/L (136-145) 12/31/23 03:39 Magnesium 1.9 mg/dL (1.6-2.6) 12/29/23 03:30 Phosphorus 3.3 mg/dL (2.5-4.9) 12/29/23 03:30 BUN 49 mg/dL (7-18) H 12/31/23 03:39 Creatinine 3.25 mg/dL (0.55-1.02) H 12/31/23 03:39 Glucose 107 mg/dL (74-106) H 12/31/23 03:39 TSH 0.98 uIU/mL (0.358-3.74) 09/22/13 08:40 COAG PT 14.7 SECONDS (11.7-14.9) 12/31/23 03:39 Review of Systems (Anesthesia) ROS Narrative System reviewed and no additional complaints, except as documented. [facility] Medical History (Updated 03/25/24 @ 09:20 by Lili Weber) Shortness of breath on exertion Ureteral obstruction History of echocardiogram Wears glasses Loose, teeth History of renal disease Pulmonary embolism Syncope Former smoker History of pain when walking History of edema 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 Ovarian cancer Hypercholesterolemia Aortic aneurysm Pruritus GERD (gastroesophageal reflux disease) History of ovarian cancer Diabetes Hyperlipidemia HTN (hypertension) Home Medications ?Medication ?Instructions ?Recorded ?Last Taken ?Type losartan 50 mg tablet 25 mg PO DAILY bp 06/25/23 03/30/24 History furosemide 20 mg tablet 20 mg PO BID 03/25/24 03/29/24 History Allergy/AdvReac Type Severity Reaction Status Date / Time shellfish derived Allergy Severe Rash Verified 03/30/24 12:00 Family History Mother CVA (cerebral vascular accident) Brother Diabetes Surgical History (Updated 03/25/24 @ 09:20 by Liil Weber) History of colonoscopy Hx of cystoscopy History of total hysterectomy with bilateral salpingo-oophorectomy (BSO) Social History household members: none Smoking Status: Former smoker alcohol intake: never substance use type: does not use
[2024-03-30] MEDS: Dextrose 5%-Lactated Ringers 1,000 ML 15 ML IV (12:08)
[2024-03-30 12:37] LABS: Bedside Glucose 59 mg/dL (74-106)
[2024-03-30 12:45] LABS: Bedside Glucose 80 mg/dL (74-106)
[2024-03-30] MEDS: Cefazolin 2 GM in 0.9% Normal Saline (100mL Bag) 100 ML IV (12:50)
--- NOTE | 2024-03-30 12:51 | PCM.OPRPT ---
Report of Operation Date of Procedure: 03/30/24 Pre-Operative Diagnosis: bilateral ureteral obstruction with flank pain Post-Operative Diagnosis: same Surgery/Procedure Performed:: procedure aborted. she was in too much pain even to lay down. Surgeon: Sharon Potter Type of Anesthesia: MAC Specimen's removed: none Complications none
--- NOTE | 2024-03-30 12:54 | EX.PCM.DISCH ---
Discharge Instructions Diet Discharge Diet: No restrictions Activity Discharge Activity: Return to Normal Activity Dressing / Incision Call your doctor if you observe: Fever of 101 or Higher, Inability to urinate and Inability to have a bowel movement Follow Up Care Please Follow Up With: Sharon Potter MD When: Call the office for follow up. Test Results: Test results from this visit will be discussed in further detail at your follow-up appointment, if applicable. Discharge Plan Admission Attending Provider: Sharon Potter Primary Care Provider: Conner Nolan Instructions Print Language: Estonian Discharge Orders/Prescriptions Prescriptions: No Action losartan 50 mg tablet 25 mg PO DAILY Patient Comments: TAKE 1 TABLET BY MOUTH ONCE DAILY furosemide 20 mg tablet 20 mg PO BID Referrals / Follow Up: Conner Nolan MD [Primary Care Provider] - Disposition Disposition (needs filled in before D/C Order can be placed): Home, Self Care
[2024-03-30 13:23] VITALS: BP 140/51; BP 147/57; PULSE 75; RESP 16; TEMP 36.6; O2SAT 100
--- NOTE | 2024-03-30 13:26 | SUR.PHASEII ---
PT WAS CANCELLED DUE TO INABILITY TO LAY FLAT ON OR TABLE. PT WAS INSTRUCTED TO FOLLOW UP WITH DR. ZARATE OFFICE. PT BG WAS RE-CHECKED AND FOUND TO BE 84 PT WAS GIVEN AN APPLE JUICE AND [employer] COOKIES PRIOR TO LEAVING.
[2024-03-30 13:35] LABS: Bedside Glucose 83 mg/dL (74-106)
== END 2024-03-30 23:59 | disposition home or self-care (01) ==
LOC: AC 12:55 → SDC 09-12 12:33
PROVIDERS: PCP Family Medicine; Referring Provider Urology; Visit Provider Urology
PROC: (CPT 52332; principal; 2024-03-30 12:50)
DX: N13.1 Hydronephrosis with ureteral stricture, not elsewhere classified (principal); C56.9 Malignant neoplasm of unspecified ovary; E11.9 Type 2 diabetes mellitus without complications; Z53.09 Procedure and treatment not carried out because of other contraindication; I10 Essential (primary) hypertension; E78.00 Pure hypercholesterolemia, unspecified; R10.32 Left lower quadrant pain; Z96.0 Presence of urogenital implants
CPT/HCPCS: 52332; 82962; J7120; J2405

== ENCOUNTER → 2024-03-31 | Day surgery (SDC) | payer MEDICARE, SELFPAY ==
--- NOTE | 2023-12-31 15:46 | CASEMGMT ---
Social Work Pt discharged home alone today. Pt refusing any home services. Referral made to Jo[facility]Ann at [facility] for follow up at home. HEATHER Hale
== END | disposition home or self-care (01) ==
LOC: SDC 10:07
PROVIDERS: PCP Family Medicine; Visit Provider Urology
DX: Z00.00 Encounter for general adult medical examination without abnormal findings (principal)
CPT/HCPCS: 76000; J7120

== ENCOUNTER → 2024-04-11 | Outpatient (CLI) | payer MEDICARE, SELFPAY ==
[2024-04-11 18:39] LABS: Anion Gap 11 (5-15); BUN 40 mg/dL (7-18); BUN/Creat Ratio 12.9 RATIO (10-20); Chloride 106 mmol/L (98-107); EST Glomerular Filtration Rate 16 mL/min (>60); Est Glom Filt Rate - Afr Amer 19 mL/min (>60); Glucose 92 mg/dL (74-106); Potassium 3.3 mmol/L (3.5-5.1); Sodium Level 141 mmol/L (136-145)
== END | disposition home or self-care (01) ==
LOC: MTLAB 15:21
PROVIDERS: PCP Family Medicine; Referring Provider Family Medicine; Visit Provider Family Medicine
DX: Z01.30 Encounter for examination of blood pressure without abnormal findings (principal)
CPT/HCPCS: 36415; 80048

== ENCOUNTER → 2024-05-19 | Outpatient (CLI) | payer MEDICARE, SELFPAY ==
[2024-05-19 12:35] LABS: Anion Gap 7 (5-15); BUN 42 mg/dL (7-18); BUN/Creat Ratio 13.3 RATIO (10-20); Calcium,Total 8.8 mg/dL (8.5-10.1); Chloride 112 mmol/L (98-107); Creatinine, Serum 3.16 mg/dL (0.55-1.02); EST Glomerular Filtration Rate 15 mL/min (>60); Est Glom Filt Rate - Afr Amer 19 mL/min (>60); Glucose 96 mg/dL (74-106); Potassium 4.5 mmol/L (3.5-5.1); Sodium Level 136 mmol/L (136-145)
== END | disposition home or self-care (01) ==
LOC: MFPLAB 10:42
PROVIDERS: PCP Family Medicine; Visit Provider Family Medicine
DX: R60.9 Edema, unspecified (principal)
CPT/HCPCS: 36415; 80048

== ENCOUNTER 2024-05-22 13:27 | Inpatient (IN) | payer MEDICARE, SELFPAY ==
[2024-05-22] VITALS (10 sets, daily range): BP systolic 117–176; BP diastolic 46–97; PULSE 93–104; RESP 18–27; TEMP 36.3–37.3; O2SAT 97–100; BMI 31.6; BMI 32.8
--- NOTE | 2024-05-22 14:14 | ED.VIS.FEGU ---
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 Ovarian cancer Hypercholesterolemia Aortic aneurysm Pruritus GERD (gastroesophageal reflux disease) History of ovarian cancer Diabetes Hyperlipidemia HTN (hypertension) Home Medications ?Medication ?Instructions ?Recorded ?Last Taken ?Type furosemide 40 mg tablet 40 mg PO DAILY PRN edema 05/22/24 05/22/24 History Allergy/AdvReac Type Severity Reaction Status Date / Time shellfish derived Allergy Severe Rash Verified 05/22/24 13:28 Family History Mother CVA (cerebral vascular accident) Brother Diabetes Surgical History (Updated 03/25/24 @ 09:20 by Lili Weber) History of colonoscopy Hx of cystoscopy History of total hysterectomy with bilateral salpingo-oophorectomy (BSO) Social History household members: none Smoking Status: Former smoker alcohol intake: never substance use type: does not use EXAM Physical Exam Const Vital Signs: 05/22/24 13:28 05/22/24 13:28 05/22/24 14:16 Temperature 99.2 F H 99.2 F H Temperature Source Temporal Temporal Pulse Rate 104 H 104 H Respiratory Rate 22 H 22 H Blood Pressure 176/53 H 176/53 H Blood Pressure Mean 94 94 Pulse Ox 99 99 100 Oxygen Delivery Method Room Air Room Air Room Air 05/22/24 14:30 05/22/24 15:00 05/22/24 16:00 Temperature 99.0 F 97.9 F 98.0 F Temperature Source Oral Oral Oral Pulse Rate 99 99 102 H Respiratory Rate 22 H 25 H 22 H Blood Pressure 152/52 H 149/53 H 140/46 H Blood Pressure Mean 85 85 77 Pulse Ox 100 100 100 Oxygen Delivery Method Room Air Room Air Room Air 05/22/24 17:00 05/22/24 18:00 Temperature Temperature Source Pulse Rate 93 97 Respiratory Rate 27 H 22 H Blood Pressure 131/51 H 124/50 H Blood Pressure Mean 77 74 Pulse Ox 99 98 Oxygen Delivery Method Room Air Room Air [facility] MDM Narrative Medical decision making narrative: HISTORY OF PRESENT ILLNESS: 33-year-old female presents with concern for Kidney pain/kidney infection. No symptoms started 1 week ago. States she has trouble urinating with burning. Notes fevers and chills as well. Denies shortness of breath. Notes chronic lower extremity swelling that she relates to her cancer. REVIEW OF SYSTEMS: Pertinent positives: Flank pain, fever and chills, lower extremity swelling, nausea Pertinent negatives: Chest pain, shortness of breath, vomiting PHYSICAL EXAM: Nursing triage notes reviewed, Vital signs reviewed Constitutional: please see mdm HENT: MMM Eyes: Pupils equal round and reactive to light, Extraocular muscles intact Neck: No stridor, no JVD, full neck ROM Lungs: Clear to auscultation, No wheezing or rales. No increased work of breathing, no conversational dyspnea, no accessory muscle use, no nasal flaring. No respiratory distress noted Heart: Regular rate and rhythm, No murmurs, No rubs and No gallops, 2+ distal pulses (radial, femoral, posterior tibial) in all extremities Abdomen: Doughy induration, diffuse anasarca, there is no tenderness, rigidity, rebound or guarding, no obvious peritoneal signs, no palpable pulsatile abdominal masses, no auscultated abdominal bruit : No CVAT Extremities: Diffuse 4+ pitting edema bilateral lower extremities, Neuro: No focal neurological deficits, cranial nerves II through XII intact, 5/5 strength in all extremities. Intact sensation to light touch in all extremities, 2+ reflexes bilateral patella tendons. Normal gait. No ataxia. Skin: No rash or lesions noted MEDICAL DECISION MAKING: Chief Complaint: Kidney pain/kidney infection External records reviewed: Echocardiogram reviewed: Prior echo from March 2023 shows ejection fraction 70% Factors affecting care: GERD, nephrolithiasis, ovarian cancer, diabetes, hypertension, metastatic ovarian cancer, Consults: Internal medicine [facility] Narrative: Patient was initially hypertensive with a blood pressure 176/53, tachycardic with a heart rate of 104, tachypneic at 22 and a temperature of nine 9.2. I considered the following differential diagnosis: Pyelonephritis, infected ureteral stone, AAA I obtained a broad lab and imaging workup to further elucidate the etiology the patient complaint ALL IMAGES (IF OBTAINED) HAVE BEEN PERSONALLY REVIEWED AND INTERPRETED BY MYSELF. CT scan shows findings consistent with cancer and lymphadenopathy, no evidence of acute surgical pathology of the abdomen. Lactate elevated consistent with endorgan hypoperfusion CBC with no leukocytosis, noted mild anemia, no thrombocytopenia No coagulopathy noted BMP with hyponatremia, ROSHAN on CKD, LFTs show no evidence of hepatobiliary pathology. High-sensitivity troponin is negative, no evidence of myocardial ischemia EKG with normal sinus rhythm, normal axis, normal intervals, no STEMI While difficult obtain a urine sample secondary to poor urinary output the small sample yet appeared purulent, milky yellow in grossly infected which may explain patient's initial tachycardia, tachypnea and elevated lactate. Given concerning nature of the patient's urine she will start broad-spectrum antibiotics in the form of vancomycin and Zosyn urine culture was sent. Given concern for urosepsis elevated lactate patient will need admission to the hospital. Patient initially refused CT scan which she agreed after dose of IV morphine. On reassessment blood pressure improved to 117/97, tachypnea improved, temperature improved. Patient is appropriate for admission to the floor. Discussed with Dr. Nance. The patient and/or family, caregivers express understanding. The patient and/or family, caregivers agrees with the plan. Shared decision making: I will have a discussion with the patient and or visitors regarding risk/benefits of further testing or admission. They will be made aware of of the risk/benefits inherent in this decision they will be given the opportunity to voice understanding. Total critical care time today provided was at least 0 minutes. This excludes separately billable procedures. Critical care time (if documented) is secondary to the patient having high probability of clinically significant/life threatening deterioration in the patient's condition which required my urgent intervention. Impression: 1. Acute pyelonephritis 2. Sepsis 3. History of ovarian cancer Dispo: Admit to floor This note was generated with [employer] dictation software. It may contain incorrect words, spelling, and punctuation that were not noted in review of the chart prior to signing. Lab Data Labs: Laboratory Results - last 24 hr 05/22/24 05/22/24 15:10 15:47 WBC 8.7 RBC 3.21 L Hgb 9.1 L Hct 28.9 L MCV 90.0 MCH 28.3 MCHC 31.5 L RDW Std Deviation 49.1 H RDW Coeff of Sol 15.0 H Plt Count 390 MPV 9.5 Immature Gran % (Auto) 0.500 Neut % (Auto) 89.7 H Lymph % (Auto) 6.9 L [place] % (Auto) 2.7 Eos % (Auto) 0.0 Baso % (Auto) 0.2 Absolute Neuts (auto) 7.8 H Absolute Lymphs (auto) 0.60 L Nucleated RBC % 0 PT 15.0 H INR 1.2 APTT 27.6 Sodium 132 L Potassium 5.1 Chloride 106 Carbon Dioxide 17.0 L Anion Gap 9 BUN 54 H Creatinine 4.65 H Est GFR (MDRD) Af Amer 12 L Est GFR (MDRD) Non-Af 10 L BUN/Creatinine Ratio 11.6 Glucose 66 L Lactic Acid 2.4 H* Calcium 8.8 Total Bilirubin 0.50 AST 35 ALT 19 Alkaline Phosphatase 178 H Troponin I High Sens 11 Total Protein 8.1 Albumin 2.1 L Globulin 6.0 H Albumin/Globulin Ratio 0.4 L Radiography Diagnostic Testing: Clinical Impression(s) from Imaging Studies Chest X-Ray 05/22/24 14:16 IMPRESSION: No acute findings in the chest. Electronically Signed: Pro Alexis DO at 15:34 EDT , Abdomen/Pelvis CT 05/22/24 18:30 IMPRESSION: (NOT LISTED IN ORDER OF SIGNIFICANCE) Retroperitoneal lymphadenopathy concerning for metastatic disease or lymphoma. Small bilateral pleural effusions. There are diffuse degenerative changes of the visualized lumbar spine. Moderate right hydronephrosis. Severe left hydronephrosis. Bilateral double-J ureteral stents in place. Multiple sclerotic lesions in the lumbar vertebral bodies suggesting metastatic disease. Subcutaneous edema. Other findings as above. Electronically Signed: Jewel Johnson MD at 20:58 EDT , Discharge Plan Disposition Disposition: Acute Care Hospital [facility] Discharge Date/Time: 05/22/24 19:26
--- NOTE | 2024-05-22 14:16 | EKG12_ITS ---
Test Reason : Blood Pressure : / mmHG Vent. Rate : 094 BPM Atrial Rate : 094 BPM P-R Int : 120 ms QRS Dur : 070 ms QT Int : 328 ms P-R-T Axes : 049 021 075 degrees QTc Int : 410 ms Normal sinus rhythm with sinus arrhythmia Low voltage QRS Borderline ECG Confirmed by Ernesto Badillo ([id number]), newspaper editor ALIX BOYD ([id number]) on 05/25/2024 9:00:43 AM Referred By: Confirmed By:Ernesto Badillo
--- NOTE | 2024-05-22 14:16 | RAD_ITS ---
EXAM: XR CHEST, 1 VIEW CLINICAL INDICATION: Fever TECHNIQUE: Frontal view of the chest. COMPARISON: 04/07/2023 FINDINGS: LUNGS AND PLEURAL SPACES: No significant abnormality. No consolidation or edema. No pneumothorax. No effusion. HEART: No significant abnormality. Cardiac silhouette not enlarged. MEDIASTINUM: Central airways and mediastinal contour are unremarkable. BONES/JOINTS: No significant abnormality. No acute fracture. SOFT TISSUES: No significant abnormality. VASCULATURE: Atherosclerosis. RAD/Chest 1 View (Portable) IMPRESSION: No acute findings in the chest. Electronically Signed: Pro Alexis DO at 15:34 EDT ,
[2024-05-22] MEDS: 0.9% Normal Saline (1000mL) 1,000 ML 999 ML IV (14:58)
[2024-05-22] MEDS: Acetaminophen 500 MG Tablet PO (14:59)
[2024-05-22 15:37] LABS: Absolute Neutrophil Count 7.8 X10^3/uL (2.0-7.7); Basophil# 0.02 X10^3/uL; Basophil% 0.2 % (0-1); Hematocrit 28.9 % (37-47); Hemoglobin 9.1 g/dL (12.0-15.0); Lymphocyte % 6.9 % (19-41); Mean Corp Hgb Conc 31.5 g/dL (32-36); Mean Corpuscular Hgb 28.3 pg (27.0-32.0); Mean Platelet Vol. 9.5 fl (6.2-12.0); Monocyte# 0.24 X10^3/uL; Monocyte% 2.7 % (0-10); NRBC Flagged by Analyzer 0 % (0-5); Neutrophil # 7.83 X10^3/uL (2.7-7.7); Neutrophil % 89.7 % (47-70); POSITIVE DIFFERENTIAL YES; Platelet Count 390 K/mm3 (150-450); RBC Distribution Width SD 49.1 fl (35.1-43.9); Red Blood Count 3.21 M/mm3 (4.2-5.4); White Blood Count 8.7 K/mm3 (4.4-11.0)
[2024-05-22 15:45] LABS: International Normalized Ratio 1.2
[2024-05-22 15:46] LABS: Partial Thromboplast Time 27.6 Seconds (24.1-36.2)
[2024-05-22 15:57] LABS: ALB/GLOB Ratio 0.4 RATIO (0.9-2.4); AST(SGOT) 35 U/L (15-37); Alanine Aminotransfer ALT/SGPT 19 U/L (13-56); Albumin, Serum 2.1 g/dL (3.2-5.0); Alkaline Phosphatase 178 U/L (45-117); Anion Gap 9 (5-15); BUN 54 mg/dL (7-18); BUN/Creat Ratio 11.6 RATIO (10-20); Calcium,Total 8.8 mg/dL (8.5-10.1); Chloride 106 mmol/L (98-107); Creatinine, Serum 4.65 mg/dL (0.55-1.02); EST Glomerular Filtration Rate 10 mL/min (>60); Est Glom Filt Rate - Afr Amer 12 mL/min (>60); Glucose 66 mg/dL (74-106); Potassium 5.1 mmol/L (3.5-5.1); Protein, Total 8.1 g/dL (6.4-8.2); Sodium Level 132 mmol/L (136-145); Troponin-I HS 11 pg/mL (3.0-54.0)
[2024-05-22 15:58] LABS: Differential Indicated SCAN CRITERIA MET
[2024-05-22 16:34] LABS: Lactic Acid 2.4 mmol/L (0.4-1.9)
[2024-05-22] MEDS: Piperacil/Tazobactam 3.375 GM in 0.9% Normal Saline (50mL MB+) 50 ML IV (17:52)
--- NOTE | 2024-05-22 18:30 | CT_ITS ---
STUDY: CT Abdomen And Pelvis W/O Contrast Injection 05/22/2024 8:53 PM REASON FOR EXAM: Female, 73 years old. Abdominal pain flank pain Individualized dose optimization techniques were used for this CT. COMPARISON: 07.25.15 TECHNIQUE: CT Abdomen And Pelvis W/O Contrast Injection FINDINGS: There are atherosclerotic calcifications of visualized coronary arteries. There are bilateral pleural effusions. Subcutaneous edema. Normal liver. Normal gallbladder and extrahepatic biliary system. Normal spleen. Normal pancreas. Normal bilateral adrenal glands. No acute findings of the right kidney. Diffuse cortical thinning of the left kidney. Bilateral double-J ureteral stents in place. Retroperitoneal adenopathy covers the right and left double-J ureteral stents as it extends into the urinary bladder. Presacral inflammatory changes. Moderate right hydronephrosis. Severe left hydronephrosis. Bilateral double-J ureteral stents in place. Normal visualized stomach. Normal small intestine. Stool throughout the colon. There is non-visualization of the appendix. There are calcifications of the abdominal aorta. This is consistent for atherosclerotic disease. There is 30 mm infrarenal abdominal aortic aneurysm. Vascular workup can be obtained based on clinical correlation. Normal inferior vena cava. Subcentimeter mesenteric lymph nodes. Normal urinary bladder. Subcutaneous varices along the abdominal wall. There are diffuse degenerative changes of the visualized lumbar spine. Multiple sclerotic lesions in the lumbar vertebral bodies suggesting metastatic disease. CT/Abdomen/Pelvis without Cont IMPRESSION: (NOT LISTED IN ORDER OF SIGNIFICANCE) Retroperitoneal lymphadenopathy concerning for metastatic disease or lymphoma. Small bilateral pleural effusions. There are diffuse degenerative changes of the visualized lumbar spine. Moderate right hydronephrosis. Severe left hydronephrosis. Bilateral double-J ureteral stents in place. Multiple sclerotic lesions in the lumbar vertebral bodies suggesting metastatic disease. Subcutaneous edema. Other findings as above. Electronically Signed: Jewel Johnson MD at 20:58 EDT ,
[2024-05-22] MEDS: Vancomycin HCl 1,250 MG in 0.9% Normal Saline (250mL Bag) 250 ML 167 MG IV (18:32)
[2024-05-22] MEDS: Lidocaine Jelly 2% 20 ML Syringe (URO-JET) 1 APPLIC TOPICAL (18:59)
[2024-05-22] MEDS: Morphine 4 MG/ML Syringe IV (19:12)
--- NOTE | 2024-05-22 19:15 | HP.PCM.HOS_ITS ---
HPI - General General Date of Admission: 05/22/24 Date of Service: 05/22/24 Chief Complaint: Lower abd pain and thick urine HPI Narrative ADAM DUENAS, is a 73-year-old female history of PE, ovarian cancer with metastasis, CKD and ureteral obstruction with bilateral stents, GERD, hypertension who presented to [facility] ED 05/22/2024 with concerns for kidney infection. Symptoms started 1 week ago and she has trouble urinating and has burning. She is found to have BUN of 54 and creatinine 4.65 up from 3.16 3 days ago and was noted to have an elevated respiratory rate and mild tachycardia. Patient was given fluids and broad-spectrum antibiotics and hospitalist contacted for admission. Patient evaluated at bedside, she reports over the past week she has had some suprapubic and flank pain and then over the past 2 days she has had dark and creamy urine and chills and she is concerned she has UTI. Reports diffuse swelling which is worsened over time, back pain which has been chronic but also worsened over time. No new shortness of breath or cough, no chest pain, no headache. Discussed goals of care with the patient and she reports she does want admission and intervention for her present medical problems including possible ureteral stent exchange and evaluation by urology would not want nephrostomy tubes and would not want to be on life support. 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 Diabetes Former smoker GERD (gastroesophageal reflux disease) History of echocardiogram History of edema History of ovarian cancer History of pain when walking History of renal disease HTN (hypertension) Hypercholesterolemia Hyperlipidemia Loose, teeth Ovarian cancer Pruritus Pulmonary embolism Shortness of breath on exertion Syncope Ureteral obstruction Wears glasses Home Medications ?Medication ?Instructions ?Recorded ?Last Taken ?Type furosemide 40 mg tablet 40 mg PO DAILY PRN edema 05/22/24 05/22/24 History Allergy/AdvReac Type Severity Reaction Status Date / Time shellfish derived Allergy Severe Rash Verified 05/22/24 13:28 Family History Mother CVA (cerebral vascular accident) Brother Diabetes Surgical History (Updated 03/25/24 @ 09:20 by Lili Weber) History of colonoscopy History of total hysterectomy with bilateral salpingo-oophorectomy (BSO) Hx of cystoscopy Social History household members: none Smoking Status: Former smoker alcohol intake: never substance use type: does not use ROS ROS Narrative General: Has had some chills HENT: Denies headache, denies stuffy nose, denies sore throat EYES: Denies changes in vision Resp: Denies cough, denies any changing in her breathing Cardiac: Denies chest pain GI: Lower abdominal pain : Has had dark and creamy urine for 2 days Extremity: Generalized swelling MSK: Some generalized weakness and flank pain Neuro: Denies any numbness/tingling Heme: Denies any bleeding or bruising Skin: Denies rashes Psychiatric: No complaints voiced Vital Signs Vital Signs Vital Signs: 05/22/24 13:28 05/22/24 13:28 05/22/24 14:16 Temperature 99.2 F H 99.2 F H Temperature Source Temporal Temporal Pulse Rate 104 H 104 H Respiratory Rate 22 H 22 H Blood Pressure 176/53 H 176/53 H Blood Pressure Mean 94 94 Pulse Ox 99 99 100 Oxygen Delivery Method Room Air Room Air Room Air 05/22/24 14:30 05/22/24 15:00 05/22/24 16:00 Temperature 99.0 F 97.9 F 98.0 F Temperature Source Oral Oral Oral Pulse Rate 99 99 102 H Respiratory Rate 22 H 25 H 22 H Blood Pressure 152/52 H 149/53 H 140/46 H Blood Pressure Mean 85 85 77 Pulse Ox 100 100 100 Oxygen Delivery Method Room Air Room Air Room Air 05/22/24 17:00 05/22/24 18:00 Temperature Temperature Source Pulse Rate 93 97 Respiratory Rate 27 H 22 H Blood Pressure 131/51 H 124/50 H Blood Pressure Mean 77 74 Pulse Ox 99 98 Oxygen Delivery Method Room Air Room Air Weight Weight: 81.193 kg Body Mass Index (BMI) 31.6 Physical Exam Narrative General: Alert, appears chronically ill but not acutely ill HEENT: Atraumatic, normocephalic Eyes: Anicteric, normal conjunctiva, extraocular movements grossly intact Neck: Supple Respiratory: Somewhat diminished at the bases, normal respiratory effort Cardiovascular: Regular rate and rhythm GI: Soft, some suprapubic tenderness noted Extremities: Patient with anasarca Musculoskeletal: Moving all extremities, pain on palpation of essentially all of her back Neuro: No overt focal neurological deficits Skin: Some chronic lower extremity changes Psych: Cooperative Results Lab / Micro Data 05/22/24 15:10 05/22/24 15:10 Labs: Laboratory Results - last 24 hr 05/22/24 15:10: WBC 8.7, RBC 3.21 L, Hgb 9.1 L, Hct 28.9 L, MCV 90.0, MCH 28.3, MCHC 31.5 L, RDW Std Deviation 49.1 H, RDW Coeff of Sol 15.0 H, Plt Count 390, MPV 9.5, Immature Gran % (Auto) 0.500, Neut % (Auto) 89.7 H, Lymph % (Auto) 6.9 L, [place] % (Auto) 2.7, Eos % (Auto) 0.0, Baso % (Auto) 0.2, Absolute Neuts (auto) 7.8 H, Absolute Lymphs (auto) 0.60 L, Nucleated RBC % 0, PT 15.0 H, INR 1.2, APTT 27.6, Sodium 132 L, Potassium 5.1, Chloride 106, Carbon Dioxide 17.0 L, Anion Gap 9, BUN 54 H, Creatinine 4.65 H, Est GFR (MDRD) Af Amer 12 L, Est GFR (MDRD) Non-Af 10 L, BUN/Creatinine Ratio 11.6, Glucose 66 L, Calcium 8.8, Total Bilirubin 0.50, AST 35, ALT 19, Alkaline Phosphatase 178 H, Troponin I High Sens 11, Total Protein 8.1, Albumin 2.1 L, Globulin 6.0 H, Albumin/Globulin Ratio 0.4 L 05/22/24 15:47: Lactic Acid 2.4 H* Imaging Radiology Impression Chest X-Ray 05/22/24 14:16 IMPRESSION: No acute findings in the chest. Electronically Signed: Pro Alexis DO at 15:34 EDT , Assessment & Plan Assessment/Plan (1) Acute renal failure: (2) Ovarian cancer: PLAN: Plan #ROSHAN on CKD IV/history of ureteral stents/abdominal metastasis causing obstruction of ureters -Several possible reasons, could have obstruction given her pelvic metastasis necessitating ureteral stents that are presently in place, could be volume depleted, and/or could be secondary to infection -Creatinine was 3.16 on 05/19 and today is 4.65 -CT abdomen and pelvis ordered but not yet complete given patient's back pain and difficulty laying flat pain medication was ordered in the ED to help patient tolerate this -CT not yet completed however given her history and her known ureteral stents in place it was discussed with patient's urologist and she advised James placement and n.p.o. at midnight and that she will see her in consult -Given patient is vitally stable and clinically looks chronically ill but not acutely ill do not think she needs emergent urological consultation this evening and can be seen tomorrow unless clinical status changes overnight -Treat presumed underlying infection while awaiting UA and urine culture -James catheter in place -N.p.o. at midnight -Daily weights -I's and O's -Patient was given a liter of IV fluids in the ED, will hold off on further fluids until it is determined if this is obstructive, patient vitally and clinically stable at this time -Repeat BMP in the a.m. -Patient previously followed with Dr. Hurley however given her metastatic cancer no longer follows with her and was told that either way she would not be a dialysis candidate, given all of the above nephrology not consulted at present # Concern for UTI -Patient with suprapubic pain and dark and creamy urine for 2 days with chills and yesterday had urinary frequency -Initial urine sample was thick and unable to be sent for UA or urine culture -Patient have James placed and will attempt to get UA and urine culture -Will treat empirically with IV antibiotics while awaiting culture, given lack of ESBL in the past and overall clinical stability do not feel patient needs to continue vancomycin, given that she was already started on Zosyn we will continue this at this time but may be able to de-escalate to Rocephin -Can de-escalate pending clinical status # Metastatic ovarian cancer with peritoneal lymphadenopathy -Known metastatic cancer not undergoing treatment -Discussed goals of care and patient did want IV antibiotics and would be agreeable to ureteral stent change if indicated but would not want nephrostomy tubes -Supportive care #Hx PE -No longer on treatment #DVT ppx: SCDs Candice Nance MD Time spent in the patient's overall evaluation,decision-making process, review of diagnostic data, adjustment of management, discussion with other providers, nursing nursing and ancillary staff involved in patient's care documentation, 60 minutes Charges/Coding Visit Charges Inpatient E&M: 33186 Init Hosp L2
--- NOTE | 2024-05-22 19:21 | NURSING ---
05/22/24@3210- attempted to place f/c twice by x2 different nurses without success. will let floor know.
[2024-05-22 19:51] LABS: Reflex Lactate? Y
[2024-05-22] MEDS: oxyCODONE 5 MG Tablet PO (20:55)
[2024-05-22] MEDS: Acetaminophen 500 MG Tablet 1000 MG PO (20:55)
[2024-05-22] MEDS: Lidocaine 5% Patch 1 PATCH TOPICAL (20:56)
[2024-05-22 23:51] LABS: Bedside Glucose 63 mg/dL (74-106)
[2024-05-23] MEDS: Dextrose 10%-Water 250 ML 999 ML IV ×3 (00:14→14:08)
[2024-05-23 01:05] LABS: Bedside Glucose 111 mg/dL (74-106)
[2024-05-23 04:16] VITALS: BP 112/47; PULSE 79; RESP 18; TEMP 36.3; O2SAT 100
[2024-05-23 05:59] LABS: Absolute Lymphocyte Count 0.96 X10^3/uL (0.83-4.51); Basophil# 0.06 X10^3/uL; Basophil% 0.4 % (0-1); Eosinophil# 0.03 X10^3/uL; Eosinophils% 0.2 % (0-5); Hematocrit 26.2 % (37-47); Hemoglobin 8.1 g/dL (12.0-15.0); Lymphocyte # 0.96 X10^3/ul (0.83-4.51); Lymphocyte % 5.8 % (19-41); Mean Corp Hgb Conc 30.9 g/dL (32-36); Mean Corpuscular Volume 90.7 fL (81-99); Mean Platelet Vol. 9.5 fl (6.2-12.0); Monocyte# 0.43 X10^3/uL; Monocyte% 2.6 % (0-10); NRBC Flagged by Analyzer 0 % (0-5); Neutrophil # 14.98 X10^3/uL (2.7-7.7); Neutrophil % 90.2 % (47-70); POSITIVE MORPHOLOGY YES; Platelet Count 336 K/mm3 (150-450); RBC Distribution Width SD 49.6 fl (35.1-43.9); Red Blood Count 2.89 M/mm3 (4.2-5.4); White Blood Count 16.6 K/mm3 (4.4-11.0)
[2024-05-23 06:08] LABS: Differential Indicated SCAN CRITERIA MET
[2024-05-23 06:26] LABS: Anion Gap 8 (5-15); BUN 56 mg/dL (7-18); Calcium,Total 8.6 mg/dL (8.5-10.1); Chloride 105 mmol/L (98-107); Creatinine, Serum 5.11 mg/dL (0.55-1.02); EST Glomerular Filtration Rate 9 mL/min (>60); Est Glom Filt Rate - Afr Amer 11 mL/min (>60); Estimated Creatinine Clearance 10.23 ml/min; Glucose 84 mg/dL (74-106); Magnesium 2.2 mg/dL (1.6-2.6); Potassium 5.7 mmol/L (3.5-5.1); Sodium Level 130 mmol/L (136-145)
--- NOTE | 2024-05-23 06:33 | PCM.HOSP.N ---
Hospitalist Note Notified of blood culture being positive with gram-positive cocci. Is only 1 blood culture could be drawn due to the national shortage, it is unclear if this is true infection with gram-positive cocci or contaminant. Will start vancomycin and repeat blood culture this afternoon.
[2024-05-23 07:38] LABS: Differential Comment SCANNED
--- NOTE | 2024-05-23 08:02 | CON.PCM_ITS ---
Assessment & Plan Assessment/Plan (1) Uremia: (2) Hydronephrosis: (3) Acute renal failure: (4) Ureteral obstruction: (5) Urinary tract infection: PLAN: Plan She has had stents chronically indwelling for quite some time and understands what is involved with changing the stents. This time it is different because she is unable to lie flat. I have discussed with her that if she cannot lie flat the only other option would be to put her under general anesthetic which I do not know that she would wake up from. I do not think that this procedure will improve her medical status, at least not significantly. She is currently scheduled for cystoscopy and bilateral ureteral stent change later today. Continue antibiotics and supportive care. Await urine culture results. I will discuss with the hospitalist team. HPI Consult Data Date of Consult: 05/23/24 HPI Narrative Reason for Consultation: Bilateral hydronephrosis, acute on chronic renal failure, UTI HPI Narrative: ADAM DUENAS, is a 73 F who presented to the emergency department yesterday. She has been having dysuria for the last week. She has had some nausea but is feeling better with the medication since admission. She denies fevers. She reports that she drank a soy milk holistic concoction and feels that her renal failure is secondary to this. She has been intermittently in and out of care geared towards hospice. On admission she has decided that she wants to proceed with another attempt at ureteral stent change. The last 1 was aborted as she was unable to lie flat on the table due to pain. I discussed with her today that I will not be able to do it with her sitting upright. She is not able to lie down. The only way that I can do it is if she is under a general anesthetic. She understands that she may not wake up from this. We will plan to schedule this for later today and she can think about it further. 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 Ovarian cancer Hypercholesterolemia Aortic aneurysm Pruritus GERD (gastroesophageal reflux disease) History of ovarian cancer Diabetes Hyperlipidemia HTN (hypertension) Home Medications ?Medication ?Instructions ?Recorded ?Last Taken ?Type furosemide 40 mg tablet 40 mg PO DAILY PRN edema 05/22/24 05/22/24 History Allergy/AdvReac Type Severity Reaction Status Date / Time shellfish derived Allergy Severe Rash Verified 05/22/24 13:28 Family History Mother CVA (cerebral vascular accident) Brother Diabetes Surgical History History of colonoscopy Hx of cystoscopy History of total hysterectomy with bilateral salpingo-oophorectomy (BSO) Social History household members: none Smoking Status: Former smoker alcohol intake: never substance use type: does not use ROS ROS Narrative Diffuse edema. Constitutional Constitutional: Reports lethargy, malaise and poor appetite Eyes Eyes: Reports systems reviewed and no addt'l complaints, except as documented ENT HEENT: Reports systems reviewed and no addt'l complaints, except as documented Cardiovascular Cardiovascular: Reports systems reviewed and no addt'l complaints, except as documented Respiratory/Chest Respiratory/Chest: Reports systems reviewed and no addt'l complaints, except as documented Gastrointestinal Gastrointestinal: Reports abdominal pain and nausea Genitourinary Genitourinary: Reports abdominal discomfort, burning urination, dysuria and flank pain Musculoskeletal Musculoskeletal: Reports difficulty walking and muscle weakness Integumentary Integumentary: Reports systems reviewed and no addt'l complaints, except as documented Neurologic Neurologic: Reports systems reviewed and no addt'l complaints, except as documented Psychiatric Psychiatric: Reports systems reviewed and no addt'l complaints, except as documented Endocrine Endocrinology: Reports systems reviewed and no addt'l complaints, except as documented Hematologic/Lymphatic Hematologic/Lymphatic: Reports systems reviewed and no addt'l complaints, except as documented Allergic/Immunologic Allergic/Immunologic: Reports systems reviewed and no addt'l complaints, except as documented Physical Exam Const alert, oriented x3 and no apparent distress HEENT normocephalic, head/scalp atraumatic, hearing grossly normal bilaterally, external ears normal and external nose normal Eyes General Eye: normal appearance of both eyes Neck supple General: normal visual inspection and trachea midline Lymph Lymphatic Narrative: She has diffuse peripheral edema throughout her body Chest inspection of chest normal Resp normal respiratory effort, normal air movement and no retractions Cardio regular rate GI soft to palpation GI Narrative: Mild diffuse tenderness, mildly distended Narrative: There is no urine draining in her James catheter Back/Spine Back/Spine Narrative: Diffuse tenderness Extremity Extremity Narrative: Bilateral edema Neuro oriented x3 and CN's II-XII intact bilaterally Psych mental status grossly normal Lab / Micro Data 05/23/24 05:30 05/23/24 05:30 Labs: Laboratory Results - last 24 hr 05/22/24 15:10: WBC 8.7, RBC 3.21 L, Hgb 9.1 L, Hct 28.9 L, MCV 90.0, MCH 28.3, MCHC 31.5 L, RDW Std Deviation 49.1 H, RDW Coeff of Sol 15.0 H, Plt Count 390, MPV 9.5, Immature Gran % (Auto) 0.500, Neut % (Auto) 89.7 H, Lymph % (Auto) 6.9 L, Stanly % (Auto) 2.7, Eos % (Auto) 0.0, Baso % (Auto) 0.2, Absolute Neuts (auto) 7.8 H, Absolute Lymphs (auto) 0.60 L, Nucleated RBC % 0, PT 15.0 H, INR 1.2, APTT 27.6, Sodium 132 L, Potassium 5.1, Chloride 106, Carbon Dioxide 17.0 L, Anion Gap 9, BUN 54 H, Creatinine 4.65 H, Est GFR (MDRD) Af Amer 12 L, Est GFR (MDRD) Non-Af 10 L, BUN/Creatinine Ratio 11.6, Glucose 66 L, Calcium 8.8, Total Bilirubin 0.50, AST 35, ALT 19, Alkaline Phosphatase 178 H, Troponin I High Sens 11, Total Protein 8.1, Albumin 2.1 L, Globulin 6.0 H, Albumin/Globulin Ratio 0.4 L 05/22/24 15:47: Lactic Acid 2.4 H* 05/22/24 20:30: Lactic Acid 2.0 05/22/24 23:31: POC Glucose 63 L 05/23/24 00:48: POC Glucose 111 H 05/23/24 05:30: WBC 16.6 H, RBC 2.89 L, Hgb 8.1 L, Hct 26.2 L, MCV 90.7, MCH 28.0, MCHC 30.9 L, RDW Std Deviation 49.6 H, RDW Coeff of Sol 15.0 H, Plt Count 336, MPV 9.5, Immature Gran % (Auto) 0.800, Neut % (Auto) 90.2 H, Lymph % (Auto) 5.8 L, Stanly % (Auto) 2.6, Eos % (Auto) 0.2, Baso % (Auto) 0.4, Absolute Neuts (auto) 15.0 H, Absolute Lymphs (auto) 0.96, Nucleated RBC % 0, Differential Comment SCANNED, Sodium 130 L, Potassium 5.7 H, Chloride 105, Carbon Dioxide 17.0 L, Anion Gap 8, BUN 56 H, Creatinine 5.11 H, Estim Creat Clear Calc 10.23, Est GFR (MDRD) Af Amer 11 L, Est GFR (MDRD) Non-Af 9 L, BUN/Creatinine Ratio 11.0, Glucose 84, Calcium 8.6, Magnesium 2.2 Micro: Microbiology 05/22/24 15:47 Blood Culture (Wb) - Right Hand Blood Culture - Preliminary Imaging Radiology Impression Chest X-Ray 05/22/24 14:16 IMPRESSION: No acute findings in the chest. Electronically Signed: Pro Alexis DO at 15:34 EDT , Abdomen/Pelvis CT 05/22/24 18:30 IMPRESSION: (NOT LISTED IN ORDER OF SIGNIFICANCE) Retroperitoneal lymphadenopathy concerning for metastatic disease or lymphoma. Small bilateral pleural effusions. There are diffuse degenerative changes of the visualized lumbar spine. Moderate right hydronephrosis. Severe left hydronephrosis. Bilateral double-J ureteral stents in place. Multiple sclerotic lesions in the lumbar vertebral bodies suggesting metastatic disease. Subcutaneous edema. Other findings as above. Electronically Signed: Jewel Johnson MD at 20:58 EDT ,
[2024-05-23 08:55] VITALS: BP 112/47; PULSE 79; RESP 18; TEMP 36.3; O2SAT 100
--- NOTE | 2024-05-23 08:55 | PCM.PRE.AN2 ---
ASA Classification* ASA Classification ASA Classification: 4 and E Assessment & Plan Anesthesia* Anesthesia Assessment Anesthesia Assessment: Discussed sedation and/or anesthesia options, risks, benefits, and alternatives with patient/parents/legal guardian/POA. Questions invited. The patient/parents/legal guardian/POA seems to understand and agrees to proceed with anesthesia plan. Reviewed the physical assessment, medical history, allergy history and patient home medications list prior to surgery/procedure/anesthetic and documented any changes. Performed airway and anesthesia risk assessments. Anesthesia Type Anesthesia Type: General (reviwed records, based on present state of health, and previous complications last year after procedure, recomend pt be treated at a tertiary center with the resources to accommodate her health needs) Anesthesia Focused Assessment* Temperature: 97.4 F Pulse Rate: 79 Blood Pressure: 112/47 Respiratory Rate: 18 Pulse Ox: 100 Airway Assessment Mouth opens: >3 cm Mallampati Score: II Focused Labs Anesthesia Preop lab: CBC WBC 16.6 K/mm3 (4.4-11.0) H 05/23/24 05:30 RBC 2.89 M/mm3 (4.2-5.4) L 05/23/24 05:30 Hgb 8.1 g/dL (12.0-15.0) L 05/23/24 05:30 Hct 26.2 % (37-47) L 05/23/24 05:30 Plt Count 336 K/mm3 (150-450) 05/23/24 05:30 CHEMISTRY Potassium 5.7 mmol/L (3.5-5.1) H 05/23/24 05:30 Sodium 130 mmol/L (136-145) L 05/23/24 05:30 Magnesium 2.2 mg/dL (1.6-2.6) 05/23/24 05:30 Phosphorus 3.3 mg/dL (2.5-4.9) 12/29/23 03:30 BUN 56 mg/dL (7-18) H 05/23/24 05:30 Creatinine 5.11 mg/dL (0.55-1.02) H 05/23/24 05:30 Glucose 84 mg/dL (74-106) 05/23/24 05:30 POC Glucose 111 mg/dL (74-106) H 05/23/24 00:48 TSH 0.98 uIU/mL (0.358-3.74) 09/22/13 08:40 COAG PT 15.0 SECONDS (11.7-14.9) H 05/22/24 15:10 Pre-Assessment Diagnosis/Proposed Procedure Planned Operative Procedure(s): uro Anesthesia History Anesthesia History - mri special procedures technologist: Anesthesia History - mri special procedures technologist Hx Hospitalization Yes: 12/2023 FOR EDEMA 03/25/24 09:08 Any Problems With Anesthesia No 03/25/24 09:08 Cholinesterase deficiency No 03/25/24 09:08 You/Your Family Experience No 03/25/24 09:08 fever (hyperthermia) with Relationship Recent Exposure to Contagious No 03/30/24 12:02 Disease Does patient have nerve No 03/25/24 09:08 stimulator Patient instructed to have device shut off --Does patient have Pacemaker or ICD? When Was Last Pacemaker Check QUESTION #4 FULL TEXT: You/Your Family Experience fever (hyperthermia) with Anesthesia Last Oral Intake Last Oral intake: Last Oral Intake NPO since Meds taken in AM with sips of water? Meds patient instructed to take am of surgery PONV PONV - mri special procedures technologist: PONV - mri special procedures technologist Female HX of Motion Sickness HX of N/V After Surgery Non-Smoker Duration of Surgery greater than 60 minutes Number of Risk Factors PONV Score Height & Weight Height & Weight: Anesthesia: Height & Weight Height 5 ft 3 in 05/22/24 19:50 Weight: 84.2 kg 05/22/24 19:50 Body Mass Index (BMI) 32.8 05/22/24 19:50 Respiratory Assessment Respiratory Assessment - mri special procedures technologist: Respiratory Tract Infection Hx - mri special procedures technologist Hx Respiratory Tract Infection No 03/25/24 09:08 STOP Sleep Apnea STOP Sleep Apnea - mri special procedures technologist: STOP Sleep Apnea - mri special procedures technologist Hx Hypertension Yes 05/22/24 19:50 Hx Sleep Apnea No 05/22/24 19:50 CPAP BIPAP Do you snore loudly (louder No 05/22/24 19:50 than talking or can be heard Do you often feel tired/ No 05/22/24 19:50 fatigued/ sleepy during daytime? Has anyone observed you stop No 05/22/24 19:50 breathing during sleep? STOP Results Negative 05/22/24 19:50 QUESTION #5 FULL TEXT : Do you snore loudly (louder than talking or can be heard through closed doors)? 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 Specify any problems Hx of Preganancy in last 3 No 05/22/24 19:50 Months Nurse Filling Out Transfusion [id number] 05/22/24 19:50 & Questions: Date: 05/22/24 05/22/24 19:50 Time: 20:24 05/22/24 19:50 Patient unable to answer at this time (ie. confused, unrespo /Reproduction History /Reproductive History - mri special procedures technologist: /Reproductive Hx- mri special procedures technologist Hx Now Gestational Age (in weeks): EDC: Hx Hx Para Hx Section SAB No 03/25/24 09:08 Active Medications Active Medications: Current Medications Generic Name Dose Route Start Last Admin Trade Name Freq PRN Reason Stop Dose Admin Acetaminophen 1,000 mg 05/22/24 22:00 05/23/24 05:22 Acetaminophen 500 Mg Tablet PO Not Given Q8 RILEY Albuterol Sulfate 2.5 mg 05/22/24 19:48 Albuterol 2.5 Mg/3 Ml Vial.Neb. INHALATION Q2H PRN PRN SOB &/OR WHEEZING Glucagon 1 mg 05/22/24 23:49 Glucagon 1 Mg/Ml Syringe IM X1 PRN Hypoglycemia Protocol Piperacillin Sod/Tazobactam 50 mls @ 12.5 mls/hr 05/23/24 10:00 Sod 3.375 gm/ Sodium Chloride IV Q12 RILEY Sodium Chloride 250 mls @ 15 mls/hr 05/22/24 20:01 IV .[id number] PRN Additional IVPB Infusion Sodium Chloride 250 mls @ 15 mls/hr 05/22/24 20:01 IV .[id number] PRN Saline Flush Dextrose 250 mls @ 0 mls/hr 05/22/24 23:49 05/23/24 00:34 Dextrose 10%-Water IV Infused .Q0M PRN Infusion HYPOGLYCEMIA Protocol As Directed Vancomycin IV-PHARMACY TO DOSE 500 mls @ 250 mls/hr 05/23/24 08:30 1 each/ Sodium Chloride IV X1 PRN Rx to Dose Protocol Lidocaine 1 patch 05/22/24 22:00 05/22/24 20:56 Lidocaine 5% Patch TOPICAL 1 patch DAILY@2200 [facility] Administration Protocol Melatonin 3 mg 05/22/24 19:48 Melatonin 3 Mg Tablet PO QHS PRN PRN INSOMNIA Morphine Sulfate 2 mg 05/22/24 19:48 Morphine 2 Mg/Ml Syringe IV Q3H PRN PRN Pain Score 6-10 Ondansetron HCl 4 mg 05/22/24 19:48 Ondansetron 4 Mg/2 Ml Vial IV Q8H PRN PRN NAUSEA/VOMITING Oxycodone HCl 5 mg 05/22/24 19:48 05/22/24 20:55 Oxycodone 5 Mg Tablet PO 5 mg Q4H PRN PRN Administration Pain Score 4-10 Senna/Docusate Sodium 2 tablet 05/22/24 19:48 Senna/Docusate Sodium 1 Tablet PO BID PRN PRN Constipation Sodium Chloride 10 - 40 ml 05/22/24 20:01 0.9% Saline Lock 10 Ml Syringe IV UD PRN SALINE FLUSH PFSH Medical History Shortness of breath on exertion Ureteral obstruction History of echocardiogram Wears glasses Loose, teeth History of renal disease Pulmonary embolism Syncope Former smoker History of pain when walking History of edema 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 Ovarian cancer Hypercholesterolemia Aortic aneurysm Pruritus GERD (gastroesophageal reflux disease) History of ovarian cancer Diabetes Hyperlipidemia HTN (hypertension) Home Medications ?Medication ?Instructions ?Recorded ?Last Taken ?Type furosemide 40 mg tablet 40 mg PO DAILY PRN edema 05/22/24 05/22/24 History Allergy/AdvReac Type Severity Reaction Status Date / Time shellfish derived Allergy Severe Rash Verified 05/22/24 13:28 Family History Mother CVA (cerebral vascular accident) Brother Diabetes Surgical History History of colonoscopy Hx of cystoscopy History of total hysterectomy with bilateral salpingo-oophorectomy (BSO) Social History household members: none Smoking Status: Former smoker alcohol intake: never substance use type: does not use Review of Systems (Anesthesia) ROS Narrative System reviewed and no additional complaints, except as documented.
[2024-05-23 09:42] VITALS: BP 126/43; PULSE 86; RESP 16; TEMP 36.4; O2SAT 97
[2024-05-23 10:03] LABS: Bedside Glucose 65 mg/dL (74-106)
[2024-05-23] MEDS: Piperacil/Tazobactam 3.375 GM in 0.9% Normal Saline (50mL MB+) 50 ML IV (10:40)
[2024-05-23] MEDS: 0.9% Saline Lock 10 ML Syringe IV (10:40)
[2024-05-23 11:02] LABS: Bedside Glucose 102 mg/dL (74-106)
[2024-05-23 11:12] VITALS: BMI 35.2
--- NOTE | 2024-05-23 13:20 | CASEMGMT ---
KATIE HERCULES Assessment: Face to Face with pt for initial transition planning/care coordination assessment. RN DIOMEDES introduced self and role at [facility], pt voices understanding and consents to assessment. Pt is A&O x4 and answers all questions appropriately at this time. Pt sitting up in bed in no distress. Care providers, pharmacy, and demographics verified/updated. Admitting Dx: UTI, worsening Kidney Function PCP: [facility] Specialists: [facility]. Preferred Pharmacy: [facility] Insurance: [employer] Pres[employer] Benefit: yes LNOK: Sharon, Friend Living Arrangements: Pt lives alone in a 1 story home with 2 steps to enter. Pt states I with ADLS, needs assistance with IADLs. Pt reports she pays someone to help with cleaning and buying groceries for her. 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 DME: Rollator, Shower Bench, glucometer and supplies. HHC/SNF: Denies Hx of. Pt denies wanting list for SNF for HHC. Pt states I don't trust anyone, I don't want anyone coming into my home and I am not going anywhere. Pt states no concerns with going home at time of dc. Pt states no further concerns/needs. CM to follow. Advised pt to ask CM if any further question/concerns/needs arise, voices understanding. Pt Goal: Home Plan: Home, KATIE HERCULES to follow plan of care. Esme Walker RN, CM.
[2024-05-23 13:38] LABS: Bedside Glucose 64 mg/dL (74-106)
[2024-05-23 14:11] VITALS: BP 111/42; PULSE 92; RESP 16; TEMP 36.6; O2SAT 96
--- NOTE | 2024-05-23 14:32 | PCM.RX.CS ---
Consult Antibiotic Management Pharmacy has been consulted to manage selected antibiotic: Vancomycin Type of Intervention Type of Consult: New start Suspected Infection Suspected Infection: Other Prior Doses of Antibiotics Prior Doses of Antibiotics Received/Current Regimen: 1250mg x1 on 05/22/24 Labs Labs: Sodium 130 mmol/L (136-145) L 05/23/24 05:30 Potassium 5.7 mmol/L (3.5-5.1) H 05/23/24 05:30 Chloride 105 mmol/L (98-107) 05/23/24 05:30 Carbon Dioxide 17.0 mmol/L (21.0-32.0) L 05/23/24 05:30 Anion Gap 8 (5-15) 05/23/24 05:30 BUN 56 mg/dL (7-18) H 05/23/24 05:30 Creatinine 5.11 mg/dL (0.55-1.02) H 05/23/24 05:30 Est GFR (MDRD) Af Amer 11 mL/min (>60) L 05/23/24 05:30 Est GFR (MDRD) Non-Af 9 mL/min (>60) L 05/23/24 05:30 BUN/Creatinine Ratio 11.0 RATIO (10-20) 05/23/24 05:30 Glucose 84 mg/dL (74-106) 05/23/24 05:30 Microbiology Microbiology: Microbiology 05/22/24 15:47 Blood Culture (Wb) - Right Hand Bacteria Detection (PCR) - Final Enterococcus faecalis 05/22/24 15:47 Blood Culture (Wb) - Right Hand Blood Culture - Preliminary Dosing Weight Weight used for dosin kg Estimated Creatinine Clearance Estimated Creatinine Clearance: 10mls/min Goal Trough Goal Trough: 15-20 mcg/mL Pharmacy Plan for Drug Dosing Pharmacy Plan for Drug Dosing: NEW START IV VANCOMYCIN Consulting Physician: Dr. Mccarthy Indication: uti Goal Trough: 15-20 SrCr: 5.11 CrCl: 10.23 mls/min Comments: pt received a 1250mg dose in the ER on 05/22/24 at 1832 Vancomycin Dose: pt has a CrCl of 10.23 and is not a candidate for HD. Pt will be renally dosed based on random levels Pending Level: 05/24/24 at 0600 Pharmacy Service will continue to monitor and adjust dosing as required. Follow-Up Labs Follow-Up Labs: Trough: Vancomycin (random level 05/24/24 at 0600)
[2024-05-23] MEDS: Calcium Gluconate 1 GM/10 ML Vial IVP (14:59)
[2024-05-23 15:03] LABS: Bedside Glucose 113 mg/dL (74-106)
--- NOTE | 2024-05-23 15:58 | PCM.PN.HOSP ---
Reason for Visit Reason for Visit: Diagnoses Malignant neoplasm of unspecified ovary (05/22/24) Acute kidney failure, unspecified (05/22/24) Objective Data Objective Data Vital Signs: Vital Signs Temp Pulse Resp BP Pulse Ox O2 Del Method 97.4 F L 79 18 112/47 L 100 Room Air 05/23/24 04:16 05/23/24 04:16 05/23/24 04:16 05/23/24 04:16 05/23/24 04:16 05/23/24 04:16 Oxygen Delivery Method Room Air Weight: 185 lb 10.067 oz Body Mass Index (BMI) 32.8 Intake & Output: Intake and Output for Last 24 Hours 05/21/24 05/22/24 05/23/24 23:59 23:59 23:59 Intake Total 1325 / 1525 450 / 450 Output Total 0 / 0 0 / 0 Balance 1325 / 1525 450 / 450 Lab / Micro Data 05/23/24 05:30 05/23/24 05:30 Labs: Laboratory Results - last 24 hr 05/22/24 15:10: WBC 8.7, RBC 3.21 L, Hgb 9.1 L, Hct 28.9 L, MCV 90.0, MCH 28.3, MCHC 31.5 L, RDW Std Deviation 49.1 H, RDW Coeff of Sol 15.0 H, Plt Count 390, MPV 9.5, Immature Gran % (Auto) 0.500, Neut % (Auto) 89.7 H, Lymph % (Auto) 6.9 L, [place] % (Auto) 2.7, Eos % (Auto) 0.0, Baso % (Auto) 0.2, Absolute Neuts (auto) 7.8 H, Absolute Lymphs (auto) 0.60 L, Nucleated RBC % 0, PT 15.0 H, INR 1.2, APTT 27.6, Sodium 132 L, Potassium 5.1, Chloride 106, Carbon Dioxide 17.0 L, Anion Gap 9, BUN 54 H, Creatinine 4.65 H, Est GFR (MDRD) Af Amer 12 L, Est GFR (MDRD) Non-Af 10 L, BUN/Creatinine Ratio 11.6, Glucose 66 L, Calcium 8.8, Total Bilirubin 0.50, AST 35, ALT 19, Alkaline Phosphatase 178 H, Troponin I High Sens 11, Total Protein 8.1, Albumin 2.1 L, Globulin 6.0 H, Albumin/Globulin Ratio 0.4 L 05/22/24 15:47: Lactic Acid 2.4 H* 05/22/24 20:30: Lactic Acid 2.0 05/22/24 23:31: POC Glucose 63 L 05/23/24 00:48: POC Glucose 111 H 05/23/24 05:30: WBC 16.6 H, RBC 2.89 L, Hgb 8.1 L, Hct 26.2 L, MCV 90.7, MCH 28.0, MCHC 30.9 L, RDW Std Deviation 49.6 H, RDW Coeff of Sol 15.0 H, Plt Count 336, MPV 9.5, Immature Gran % (Auto) 0.800, Neut % (Auto) 90.2 H, Lymph % (Auto) 5.8 L, [place] % (Auto) 2.6, Eos % (Auto) 0.2, Baso % (Auto) 0.4, Absolute Neuts (auto) 15.0 H, Absolute Lymphs (auto) 0.96, Nucleated RBC % 0, Sodium 130 L, Potassium 5.7 H, Chloride 105, Carbon Dioxide 17.0 L, Anion Gap 8, BUN 56 H, Creatinine 5.11 H, Estim Creat Clear Calc 10.23, Est GFR (MDRD) Af Amer 11 L, Est GFR (MDRD) Non-Af 9 L, BUN/Creatinine Ratio 11.0, Glucose 84, Calcium 8.6, Magnesium 2.2 Micro: Microbiology 05/22/24 15:47 Blood Culture (Wb) - Right Hand Blood Culture - Preliminary Radiography Diagnostic Testing: Radiology Impression Chest X-Ray 05/22/24 14:16 IMPRESSION: No acute findings in the chest. Electronically Signed: Pro Alexis DO at 15:34 EDT , Abdomen/Pelvis CT 05/22/24 18:30 IMPRESSION: (NOT LISTED IN ORDER OF SIGNIFICANCE) Retroperitoneal lymphadenopathy concerning for metastatic disease or lymphoma. Small bilateral pleural effusions. There are diffuse degenerative changes of the visualized lumbar spine. Moderate right hydronephrosis. Severe left hydronephrosis. Bilateral double-J ureteral stents in place. Multiple sclerotic lesions in the lumbar vertebral bodies suggesting metastatic disease. Subcutaneous edema. Other findings as above. Electronically Signed: Jewel Johnson MD at 20:58 EDT Reading Location ID and State: [facility] / [place] , Service support , Physical Exam Narrative Seen and examined. General: Alert, Oriented x3, Cooperative HEENT: Atraumatic, PERRLA, EOMI, Normocephalic Oral: No Gingival or Mucosal Lesions/ Ulcerations Neck: Supple, No JVD, Negative Carotid Bruits Chest wall/Lungs: Air entry diminished in bilateral lung bases. No crepitation/rhonchi Cardiovascular: Regular rate, Regular Rhythm, Normal S1, Normal S2, No M/G/R Abdomen: Bowel Sounds Present, Soft, Non Tender, Non-Distended : No dysuria. No renal angle tenderness. suprapubic tenderness. Extremities: Anasarca, swelling over retroperitoneal region lower extremities thighs and abdomen, Capillary Refill Less than 3 Seconds Skin: No rashes, No breakdown Musculoskeletal: No Tenderness to Palpation of Joints or Extremities Neurological: Cranial nerves II-XII grossly intact, DTR 2+/4. No acute focal neurological deficit. Psych/Mental Status: Flat affect. Assessment & Plan Assessment/Plan (1) Acute renal failure: (2) Ovarian cancer: PLAN: Plan 73-year-old female with history of ovarian cancer with metastasis, CKD and ureteral obstruction and bilateral stents was admitted with burning micturition, difficult urination for 1 week. #ROSHAN on CKD IV/history of ureteral stents/abdominal metastasis causing obstruction of ureters -Creatinine was 3.16 on 05/19 and today is 4.65, BUN 54. Resuscitated with IV fluid and antibiotics -Urologist was consulted and plan for n.p.o. and possible exchange of stent today. Prelim blood cultures remain positive of GPC empirically started on vancomycin though suspicion of contamination. Clinically and vitals did not look acutely sick but chronic illness. Given her metastatic cancer patient and not agreeable for dialysis and not even dialysis candidate, she no longer follows search specialist Dr. Hurley. She is high risk for general anesthesia as regards to the ROSHAN on CKD stage IV metastatic cancer and poor functional status. She was told that she might not recover or awake from general anesthesia but she wanted stent exchange. Discussed with the search specialist Dr. Hurley also. She does not want dialysis therefore not worth seeing her in view of her metastatic cancer. # Concern for UTI -Patient with suprapubic pain and dark and creamy urine for 2 days with chills and yesterday had urinary frequency Was started empirically on IV Zosyn with no history of ESBL in the past. # Metastatic ovarian cancer with peritoneal lymphadenopathy -Known metastatic cancer not undergoing treatment -Discussed goals of care and patient did want IV antibiotics and would be agreeable to ureteral stent change if indicated but would not want nephrostomy tubes -Supportive care #Hx PE -No longer on treatment #DVT ppx: SCDs Charges/Coding Addendum Addendum: Total time of the visit including total time spent in counseling or coordination of care, (more than 50% of the total time, spent in obtaining medical information from nurses and other ancillary care providers,explaining to the patient about labs, imaging, diagnosis and management of active complex medical conditions), discussion with urologist, search specialist, anesthesiologist management of hyperkalemia and ROSHAN on CKD stage IV, complicated with hypoglycemia review of labs and imaging is 40 minutes. Visit Charges Inpatient E&M: 55665 [facility] Hosp L3
--- NOTE | 2024-05-23 16:04 | DCINST_ITS ---
Discharge Instructions Diet Discharge Diet: No restrictions Activity Discharge Activity: May Not Drive and - (DNR CC comfort care) Dressing / Incision Call your doctor if you observe: - (DNR CC comfort care. She is not agreeable for hospice care. She does not want to come to ED or hospital.) Follow Up Care Test Results: Test results from this visit will be discussed in further detail at your follow- up appointment, if applicable. Discharge Plan Admission Admit Date/Time: 05/22/24 19:00 Primary Reason for Your Visit: Metastatic ovarian cancer retroperitoneal lymphadenopathy with anasarca Attending Provider: Luke Moesr Primary Care Provider: Conner Nolan Consulting Providers: Sharon Potter; Candice Nance; Felix Roberto Instructions Additional Instructions / Restrictions: DNR CC. Patient does not elect and does not want palliative care or hospice care. She refused for that and just wants to go home. She does not want to come back to ED or admission Discharge Orders/Prescriptions Prescriptions: New sennosides-docusate sodium [Stimulant Laxative Plus] 8.6-50 mg Tablet 2 tab PO BID PRN PRN (Reason: Constipation) Qty: 0 0RF acetaminophen 500 mg Tablet 1,000 mg PO Q8 Qty: 0 0RF amoxicillin 500 mg tablet 500 mg PO DAILY 7 Days Qty: 7 0RF Rx Instructions: Creatinine clearance less than 10 Continued furosemide 40 mg tablet 40 mg PO DAILY PRN (Reason: edema) Patient Comments: TAKE 1 TABLET BY MOUTH ONCE DAILY NEEDED FOR SWELLING Referrals / Follow Up: Conner Nolan MD [Primary Care Provider] - Disposition Disposition (needs filled in before D/C Order can be placed): Home, Self Care
--- NOTE | 2024-05-23 16:14 | PCM.DC.SUM ---
Providers Date of Admission: 05/22/24 Date of Discharge: 05/23/24 Primary Care Physician: Dr. Conner Nolan MD Consultations 05/22/24 19:48 Consult: Urology Routine Consulting Provider: Sharon Potter Reason for Consult: Hx ureteral stents, ?stent change EMERGENT Consult: No Notified: Yes Date Notified: 05/22/24 Time Notified: 19:21 Method of Notification: Verbal 05/23/24 14:31 Consult: Infectious Disease Routine Consulting Provider: Felix Roberto Reason for Consult: E fecalis in blood, UTI EMERGENT Consult: No Notified: Yes Date Notified: 05/23/24 Time Notified: 14:31 Method of Notification: Text Reason For Visit: UTI, WORSENING KIDNEY FUNCTION Diagnosis Discharge Diagnosis (1) Acute renal failure: Status: Acute Code(s): N17.9 - Acute kidney failure, unspecified (2) Ovarian cancer: Status: Chronic Code(s): C56.9 - Malignant neoplasm of unspecified ovary Plan 73-year-old female with history of ovarian cancer with metastasis, CKD and ureteral obstruction and bilateral stents was admitted with burning micturition, difficult urination for 1 week. #ROSHAN on CKD IV/history of ureteral stents/abdominal metastasis causing obstruction of ureters -Creatinine was 3.16 on 05/19 and today is 4.65, BUN 54. Resuscitated with IV fluid and antibiotics -Urologist was consulted and plan for n.p.o. and possible exchange of stent today. Prelim blood cultures remain positive of GPC empirically started on vancomycin though suspicion of contamination. Clinically and vitals did not look acutely sick but chronic illness. Given her metastatic cancer patient and not agreeable for dialysis and not even dialysis candidate, she no longer follows correspondence specialist Dr. Hurley. She is high risk for general anesthesia as regards to the ROSHAN on CKD stage IV metastatic cancer and poor functional status. She was told that she might not recover or awake from general anesthesia but she wanted stent exchange. Discussed with the correspondence specialist Dr. Hurley also. She does not want dialysis therefore not worth seeing her in view of her metastatic cancer. 05/23 in the afternoon: High risk of general anesthesia in view of low functional status and above-mentioned regions, patient and family member declined for GA. She returned from the OR and wants to go home. She does not want to refuse preparative hospice care. I talked to the patient's friend Mrs. Sharon Deluca and she said she just wanted to go home without coming back to ER or hospitalization for dialysis. Please see progress note for details. Hyperkalemia cocktail was given along with Kayexalate. Glucose was low but was corrected with D10. # Concern for UTI -Patient with suprapubic pain and dark and creamy urine for 2 days with chills and yesterday had urinary frequency Was started empirically on IV Zosyn with no history of ESBL in the past. 05/23: Patient discharged on amoxicillin 500 mg for creatinine clearance less than 10 millimeters per minute for 7 days # Metastatic ovarian cancer with peritoneal lymphadenopathy -Known metastatic cancer not undergoing treatment -Discussed goals of care and patient did want IV antibiotics and would be agreeable to ureteral stent change if indicated but would not want nephrostomy tubes -Supportive care #Hx PE -No longer on treatment #DVT ppx: SCDs Discharge medication reconciliation done. Discharge follow-up instructions completed. Discharge process discussed with the patient and all questions were answered to patient's satisfaction. She is being discharged and DNR CC. Medications at Discharge Home Medications furosemide 40 mg tablet 40 mg PO DAILY PRN edema 05/22/24 acetaminophen 500 mg tablet 1,000 mg (2 x 500 mg) PO Q8 #0 tabs 05/23/24 amoxicillin 500 mg tablet 500 mg PO DAILY 1 week #7 tabs 05/23/24 sennosides 8.6 mg-docusate sodium 50 mg tablet (Stimulant Laxative Plus) 2 tab PO BID PRN PRN Constipation #0 tabs 05/23/24 Physical Exam Narrative Please see progress note on same date. Weight / BMI Weight Weight: 198 lb 7.997 oz Body Mass Index (BMI) 35.2 ABG / Lab / Microbiology Data 05/23/24 05:30 05/23/24 05:30 Laboratory: Laboratory Results - last 24 hr 05/22/24 15:10: Sodium 132 L, Potassium 5.1, Chloride 106, Carbon Dioxide 17.0 L, Anion Gap 9, BUN 54 H, Creatinine 4.65 H, Est GFR (MDRD) Af Amer 12 L, Est GFR (MDRD) Non-Af 10 L, BUN/Creatinine Ratio 11.6, Glucose 66 L, Calcium 8.8, Total Bilirubin 0.50, AST 35, ALT 19, Alkaline Phosphatase 178 H, Troponin I High Sens 11, Total Protein 8.1, Albumin 2.1 L, Globulin 6.0 H, Albumin/Globulin Ratio 0.4 L 05/22/24 15:47: Lactic Acid 2.4 H* 05/22/24 20:30: Lactic Acid 2.0 05/22/24 23:31: POC Glucose 63 L 05/23/24 00:48: POC Glucose 111 H 05/23/24 05:30: WBC 16.6 H, RBC 2.89 L, Hgb 8.1 L, Hct 26.2 L, MCV 90.7, MCH 28.0, MCHC 30.9 L, RDW Std Deviation 49.6 H, RDW Coeff of Sol 15.0 H, Plt Count 336, MPV 9.5, Immature Gran % (Auto) 0.800, Neut % (Auto) 90.2 H, Lymph % (Auto) 5.8 L, [place] % (Auto) 2.6, Eos % (Auto) 0.2, Baso % (Auto) 0.4, Absolute Neuts (auto) 15.0 H, Absolute Lymphs (auto) 0.96, Nucleated RBC % 0, Differential Comment SCANNED, Sodium 130 L, Potassium 5.7 H, Chloride 105, Carbon Dioxide 17.0 L, Anion Gap 8, BUN 56 H, Creatinine 5.11 H, Estim Creat Clear Calc 10.23, Est GFR (MDRD) Af Amer 11 L, Est GFR (MDRD) Non-Af 9 L, BUN/Creatinine Ratio 11.0, Glucose 84, Calcium 8.6, Magnesium 2.2 05/23/24 09:39: POC Glucose 65 L 05/23/24 10:35: POC Glucose 102 05/23/24 13:18: POC Glucose 64 L 05/23/24 14:32: POC Glucose 113 H Microbiology: Microbiology 05/22/24 15:47 Blood Culture (Wb) - Right Hand Bacteria Detection (PCR) - Final Enterococcus faecalis 05/22/24 15:47 Blood Culture (Wb) - Right Hand Blood Culture - Preliminary Radiography Diagnostic Testing: Radiology Impression Abdomen/Pelvis CT 05/22/24 18:30 IMPRESSION: (NOT LISTED IN ORDER OF SIGNIFICANCE) Retroperitoneal lymphadenopathy concerning for metastatic disease or lymphoma. Small bilateral pleural effusions. There are diffuse degenerative changes of the visualized lumbar spine. Moderate right hydronephrosis. Severe left hydronephrosis. Bilateral double-J ureteral stents in place. Multiple sclerotic lesions in the lumbar vertebral bodies suggesting metastatic disease. Subcutaneous edema. Other findings as above. Electronically Signed: Jewel Johnson MD at 20:58 EDT Reading Location ID and State: [facility] / [place] , Service support , D/C Instructions Discharge Diet: No restrictions Call your doctor if you observe: - (DNR CC comfort care. She is not agreeable for hospice care. She does not want to come to ED or hospital.) Meaningful Use Info Meaningful Use Meaningful Use Diagnoses (Choose all that apply): None applicable Ischemic Stroke Statin Dosing Therapy Reference: STATIN DOSE THERAPY REFERENCE: * Patients > 75 years receive moderate or high dose statin therapy. * Patients 75 years or YOUNGER should receive HIGH intensity statin dose unless contraindicated. You will be required to document reason for non-treatment if statin daily dose does not meet guidelines. HIGH DOSE STATIN THERAPY DAILY Atorvastatin > than or = to 40 mg Rosuvastatin > than or = to 20 mg Amlodipine + Atorvastatin > than or = to 2.5/40 mg Ezetimibe + Simvastatin 10/80 mg Simvastatin 80mg Discharge Plan Admission Admit Date/Time: 05/22/24 19:00 Primary Reason for Your Visit: Metastatic ovarian cancer retroperitoneal lymphadenopathy with anasarca Attending Provider: Luke Moser Primary Care Provider: Conner Nolan Consulting Providers: Sharon Potter; Candice Nance; Felix Roberto Instructions Additional Instructions / Restrictions: DNR CC. Patient does not elect and does not want palliative care or hospice care. She refused for that and just wants to go home. She does not want to come back to ED or admission Discharge Orders/Prescriptions Prescriptions: New sennosides-docusate sodium [Stimulant Laxative Plus] 8.6-50 mg Tablet 2 tab PO BID PRN PRN (Reason: Constipation) Qty: 0 0RF acetaminophen 500 mg Tablet 1,000 mg PO Q8 Qty: 0 0RF amoxicillin 500 mg tablet 500 mg PO DAILY 7 Days Qty: 7 0RF Rx Instructions: Creatinine clearance less than 10 Continued furosemide 40 mg tablet 40 mg PO DAILY PRN (Reason: edema) Patient Comments: TAKE 1 TABLET BY MOUTH ONCE DAILY NEEDED FOR SWELLING Referrals / Follow Up: Conner Nolan MD [Primary Care Provider] - Disposition Disposition (needs filled in before D/C Order can be placed): Home, Self Care Charges/Coding Visit Charges Inpatient E&M: 75194 Disch Hosp >30min
--- NOTE | 2024-05-23 16:34 | PN.URO_ITS ---
Subjective Subjective After speaking with anesthesia and the hospitalist services, I spoke with the patient and her friend. We discussed all of the issues specifically the large risk of her needing ICU care and not being able to come off of the ventilator following ureteral stent change. No one is willing to take the risk of her passing away right now. She would like to go home on antibiotics and complete some tasks that she has laid out. Dr. Moser will discharge her today. Objective Data Objective Data Vital Signs: Vital Signs Temp Pulse Resp BP Pulse Ox O2 Del Method 97.8 F 92 16 111/42 L 96 Room Air 05/23/24 14:11 05/23/24 14:11 05/23/24 14:11 05/23/24 14:11 05/23/24 14:11 05/23/24 14:11 Oxygen Delivery Method Room Air Weight: 90.038 kg Body Mass Index (BMI) 35.2 Intake & Output: Intake and Output for Last 24 Hours 05/21/24 05/22/24 05/23/24 23:59 23:59 23:59 Intake Total 1325 / 1525 1000 / 1000 Output Total 0 / 0 0 / 0 Balance 1325 / 1525 1000 / 1000 Lab / Micro Data 05/23/24 05:30 05/23/24 05:30 Labs: Laboratory Results - last 24 hr 05/22/24 15:10: Sodium 132 L, Potassium 5.1, Chloride 106, Carbon Dioxide 17.0 L , Anion Gap 9, BUN 54 H, Creatinine 4.65 H, Est GFR (MDRD) Af Amer 12 L, Est GFR (MDRD) Non-Af 10 L, BUN/Creatinine Ratio 11.6, Glucose 66 L, Calcium 8.8, Total Bilirubin 0.50, AST 35, ALT 19, Alkaline Phosphatase 178 H, Troponin I High Sens 11, Total Protein 8.1, Albumin 2.1 L, Globulin 6.0 H, Albumin/Globulin Ratio 0.4 L 05/22/24 15:47: Lactic Acid 2.4 H* 05/22/24 20:30: Lactic Acid 2.0 05/22/24 23:31: POC Glucose 63 L 05/23/24 00:48: POC Glucose 111 H 05/23/24 05:30: WBC 16.6 H, RBC 2.89 L, Hgb 8.1 L, Hct 26.2 L, MCV 90.7, MCH 28.0, MCHC 30.9 L, RDW Std Deviation 49.6 H, RDW Coeff of Sol 15.0 H, Plt Count 336, MPV 9.5, Immature Gran % (Auto) 0.800, Neut % (Auto) 90.2 H, Lymph % (Auto) 5.8 L, [place] % (Auto) 2.6, Eos % (Auto) 0.2, Baso % (Auto) 0.4, Absolute Neuts (auto) 15.0 H, Absolute Lymphs (auto) 0.96, Nucleated RBC % 0, Differential Comment SCANNED, Sodium 130 L, Potassium 5.7 H, Chloride 105, Carbon Dioxide 17.0 L, Anion Gap 8, BUN 56 H, Creatinine 5.11 H, Estim Creat Clear Calc 10.23, Est GFR (MDRD) Af Amer 11 L, Est GFR (MDRD) Non-Af 9 L, BUN/Creatinine Ratio 11.0, Glucose 84, Calcium 8.6, Magnesium 2.2 05/23/24 09:39: POC Glucose 65 L 05/23/24 10:35: POC Glucose 102 05/23/24 13:18: POC Glucose 64 L 05/23/24 14:32: POC Glucose 113 H Micro: Microbiology 05/22/24 15:47 Blood Culture (Wb) - Right Hand Bacteria Detection (PCR) - Final Enterococcus faecalis 05/22/24 15:47 Blood Culture (Wb) - Right Hand Blood Culture - Preliminary Radiography Diagnostic Testing: Radiology Impression Abdomen/Pelvis CT 05/22/24 18:30 IMPRESSION: (NOT LISTED IN ORDER OF SIGNIFICANCE) Retroperitoneal lymphadenopathy concerning for metastatic disease or lymphoma. Small bilateral pleural effusions. There are diffuse degenerative changes of the visualized lumbar spine. Moderate right hydronephrosis. Severe left hydronephrosis. Bilateral double-J ureteral stents in place. Multiple sclerotic lesions in the lumbar vertebral bodies suggesting metastatic disease. Subcutaneous edema. Other findings as above. Electronically Signed: Jewel Johnson MD at 20:58 EDT ,
[2024-05-23 17:10] VITALS: BP 118/50; PULSE 85; RESP 18; TEMP 36.4; O2SAT 99
== END 2024-05-23 17:56 | disposition home or self-care (01) | DRG 683 ==
LOC: ED 18:10 → PCU 19:26
PROVIDERS: Admitting Provider Internal Medicine; Emergency Provider Emergency Medicine; PCP Family Medicine; Visit Provider Internal Medicine
DX: N17.9 Acute kidney failure, unspecified (principal); C56.9 Malignant neoplasm of unspecified ovary; C79.9 Secondary malignant neoplasm of unspecified site; E11.22 Type 2 diabetes mellitus with diabetic chronic kidney disease; N18.4 Chronic kidney disease, stage 4 (severe); I12.9 Hypertensive chronic kidney disease with stage 1 through stage 4 chronic kidney disease, or unspecified chronic kidney disease; E78.5 Hyperlipidemia, unspecified; R59.0 Localized enlarged lymph nodes; Z87.891 Personal history of nicotine dependence; Z82.3 Family history of stroke; N13.6 Pyonephrosis; Z66 Do not resuscitate; Z51.5 Encounter for palliative care; Z86.711 Personal history of pulmonary embolism
CPT/HCPCS: 36415; 71045; 74176; 80048; 80053; 82962; 83605; 83735; 84484; 85025; 85610; 85730; 87040; 87149; 87186; 93005; 97802; 99284; J7030; J7040; J7050; A4216; J0612